=== PATIENT | male | born 1955 | race Caucasian/White ===

== ENCOUNTER → 2018-05-02 05:47 | Outpatient (CLI) | payer BC, SELFPAY ==
[2018-05-02 06:29] LABS: AST(SGOT) 16 U/L (15-37); Alanine Aminotransfer ALT/SGPT 29 U/L (16-61); Albumin, Serum 3.5 g/dL (3.2-5.0); Alkaline Phosphatase 79 U/L (45-117); Anion Gap 8 (5-15); BUN 22 mg/dL (7-18); Calcium,Total 8.8 mg/dL (8.5-10.1); Chloride 101 mmol/L (98-107); Cholesterol 127 mg/dL (200); Creatinine, Serum 1.05 mg/dL (0.70-1.30); EST Glomerular Filtration Rate 75 mL/min (>60); Est Glom Filt Rate - Afr Amer 91 mL/min (>60); Globulin 3.5 g/dL (2.2-4.2); Glucose 202 mg/dL (74-106); High Density Lipoprotein 29 mg/dL; Potassium 4.1 mmol/L (3.5-5.1); Sodium Level 141 mmol/L (136-145); Triglycerides 254 mg/dL; Very Low Density Lipoprotein 51 mg/dL (5-40)
[2018-05-02 07:01] LABS: Hemoglobin A1c 7.4 % (4.2-6.3)
== END ==
PROVIDERS: Family Provider Family Medicine; PCP Family Medicine; Referring Provider Family Medicine; Visit Provider Family Medicine
DX: E11.65 Type 2 diabetes mellitus with hyperglycemia (principal)
CPT/HCPCS: 36415; 80053; 80061; 83036

== ENCOUNTER → 2019-09-25 05:29 | Outpatient (CLI) | payer BC, SELFPAY ==
[2019-09-25 07:25] LABS: Absolute Lymphocyte Count 1.59 X10^3/uL (0.83-4.51); Basophil# 0.04 X10^3/uL; Basophil% 0.5 % (0-1); Eosinophil# 0.21 X10^3/uL; Eosinophils% 2.8 % (0-5); Hemoglobin 17.1 g/dL (13.0-16.5); Lymphocyte # 1.59 X10^3/ul (4.0); Lymphocyte % 21.5 % (19-41); Mean Corp Hgb Conc 30.8 g/dL (32-36); Mean Corpuscular Hgb 30.8 pg (27.0-32.0); Mean Platelet Vol. 11.4 fl (6.2-12.0); Monocyte# 0.54 X10^3/uL; Monocyte% 7.3 % (0-10); NRBC Flagged by Analyzer 0 % (0-5); Neutrophil # 4.96 X10^3/uL (2.7-7.7); Neutrophil % 67.4 % (47-70); Platelet Count 169 K/mm3 (150-450); RBC Distribution Width SD 52.6 fl (35.1-43.9); Red Blood Count 5.56 M/mm3 (4.6-6.2); White Blood Count 7.4 K/mm3 (4.4-11.0)
[2019-09-25 07:29] LABS: Hemoglobin A1c 6.9 % (4.2-6.3)
[2019-09-25 07:34] LABS: Microalbumin,Random Urine 7.1 mg/L (NO RANGE EST.); Microalbumin:Creatinine Ratio 6.3 mg/g CRE (<30 mg/g CRE)
[2019-09-25 07:35] LABS: ALB/GLOB Ratio 0.8 RATIO (0.9-2.4); AST(SGOT) 15 U/L (15-37); Alanine Aminotransfer ALT/SGPT 24 U/L (16-61); Albumin, Serum 3.3 g/dL (3.2-5.0); Alkaline Phosphatase 82 U/L (45-117); Anion Gap 1 (5-15); BUN 19 mg/dL (7-18); BUN/Creat Ratio 18.3 RATIO (10-20); Chloride 105 mmol/L (98-107); Cholesterol 113 mg/dL (200); Creatinine, Serum 1.04 mg/dL (0.70-1.30); EST Glomerular Filtration Rate 76 mL/min (>60); Est Glom Filt Rate - Afr Amer 92 mL/min (>60); Glucose 143 mg/dL (74-106); High Density Lipoprotein 34 mg/dL; Potassium 4.1 mmol/L (3.5-5.1); Protein, Total 7.3 g/dL (6.4-8.2); Sodium Level 140 mmol/L (136-145); Thyroid Stim Hormone (TSH) 1.93 uIU/mL (0.358-3.74); Triglycerides 136 mg/dL; Very Low Density Lipoprotein 27 mg/dL (5-40)
[2019-09-25 07:40] LABS: Hematocrit 55.6 % (40-54)
== END ==
PROVIDERS: PCP Family Medicine; Referring Provider Family Medicine; Visit Provider Family Medicine
DX: E13.65 Other specified diabetes mellitus with hyperglycemia (principal); Z12.5 Encounter for screening for malignant neoplasm of prostate
CPT/HCPCS: 36415; 80053; 80061; 82043; 82570; 83036; 84153; 84443; 85025; G0103

== ENCOUNTER → 2020-03-14 05:29 | Outpatient (CLI) | payer BC, SELFPAY ==
[2020-03-14 07:04] LABS: Absolute Neutrophil Count 3.5 X10^3/uL (2.0-7.7); Basophil# 0.04 X10^3/uL; Basophil% 0.6 % (0-1); Eosinophil# 0.18 X10^3/uL; Eosinophils% 2.9 % (0-5); Hematocrit 52.1 % (40-54); Hemoglobin 17.1 g/dL (13.0-16.5); Lymphocyte % 30.7 % (19-41); Mean Corp Hgb Conc 32.8 g/dL (32-36); Mean Corpuscular Hgb 32.9 pg (27.0-32.0); Mean Corpuscular Volume 100.2 fL (80-94); Mean Platelet Vol. 11.7 fl (6.2-12.0); Monocyte# 0.54 X10^3/uL; Monocyte% 8.7 % (0-10); NRBC Flagged by Analyzer 0 % (0-5); Neutrophil # 3.49 X10^3/uL (2.7-7.7); Neutrophil % 56.6 % (47-70); Platelet Count 143 K/mm3 (150-450); RBC Distribution Width CV 14.2 % (11.6-14.6); RBC Distribution Width SD 51.8 fl (35.1-43.9); White Blood Count 6.2 K/mm3 (4.4-11.0)
[2020-03-14 07:17] LABS: AST(SGOT) 21 U/L (15-37); Alanine Aminotransfer ALT/SGPT 30 U/L (16-61); Albumin, Serum 3.6 g/dL (3.2-5.0); Alkaline Phosphatase 71 U/L (45-117); Anion Gap 6 (5-15); BUN 18 mg/dL (7-18); BUN/Creat Ratio 17.1 RATIO (10-20); Calcium,Total 8.6 mg/dL (8.5-10.1); Chloride 102 mmol/L (98-107); Cholesterol 121 mg/dL (200); Creatinine, Serum 1.05 mg/dL (0.70-1.30); EST Glomerular Filtration Rate 75 mL/min (>60); Est Glom Filt Rate - Afr Amer 91 mL/min (>60); Globulin 3.5 g/dL (2.2-4.2); Glucose 156 mg/dL (74-106); High Density Lipoprotein 31 mg/dL; Potassium 3.7 mmol/L (3.5-5.1); Protein, Total 7.1 g/dL (6.4-8.2); Sodium Level 139 mmol/L (136-145); Triglycerides 210 mg/dL; Very Low Density Lipoprotein 42 mg/dL (5-40)
[2020-03-14 07:22] LABS: Microalbumin,Random Urine 11.3 mg/L (NO RANGE EST.); Microalbumin:Creatinine Ratio 10.7 mg/g CRE (<30 mg/g CRE)
[2020-03-14 08:51] LABS: Hemoglobin A1c 7.4 % (3.8-5.6)
== END ==
PROVIDERS: PCP Family Medicine; Referring Provider Family Medicine; Visit Provider Family Medicine
DX: E13.65 Other specified diabetes mellitus with hyperglycemia (principal); E78.5 Hyperlipidemia, unspecified
CPT/HCPCS: 36415; 80053; 80061; 82043; 82570; 83036; 85025

== ENCOUNTER → 2021-01-31 06:06 | Outpatient (CLI) | payer MEDICARE, OTHER, SELFPAY ==
[2021-01-31 07:08] LABS: AST(SGOT) 18 U/L (15-37); Alanine Aminotransfer ALT/SGPT 28 U/L (16-61); Albumin, Serum 3.6 g/dL (3.2-5.0); Alkaline Phosphatase 77 U/L (45-117); Anion Gap 7 (5-15); BUN 21 mg/dL (7-18); BUN/Creat Ratio 19.4 RATIO (10-20); Calcium,Total 8.7 mg/dL (8.5-10.1); Chloride 102 mmol/L (98-107); Cholesterol 153 mg/dL (200); Creatinine, Serum 1.08 mg/dL (0.70-1.30); EST Glomerular Filtration Rate 72 mL/min (>60); Est Glom Filt Rate - Afr Amer 88 mL/min (>60); Globulin 3.5 g/dL (2.2-4.2); Glucose 177 mg/dL (74-106); High Density Lipoprotein 33 mg/dL; PSA,Total - Annual Screen 1.17 ng/mL (0.00-4.00); Potassium 4.3 mmol/L (3.5-5.1); Protein, Total 7.1 g/dL (6.4-8.2); Sodium Level 139 mmol/L (136-145); Triglycerides 275 mg/dL; Very Low Density Lipoprotein 55 mg/dL (5-40)
[2021-01-31 07:12] LABS: Microalbumin,Random Urine 8.2 mg/L (NO RANGE EST.); Microalbumin:Creatinine Ratio 7.1 mg/g CRE (<30 mg/g CRE)
[2021-01-31 08:50] LABS: Hemoglobin A1c 7.8 % (3.8-5.6)
== END ==
PROVIDERS: PCP Family Medicine; Referring Provider Family Medicine; Visit Provider Family Medicine
DX: E13.65 Other specified diabetes mellitus with hyperglycemia (principal); Z12.5 Encounter for screening for malignant neoplasm of prostate
CPT/HCPCS: 36415; 80053; 80061; 82043; 82570; 83036; 84153; G0103

== ENCOUNTER 2021-08-27 09:07 | Emergency (ER) | payer MEDICARE, OTHER, SELFPAY ==
[2021-08-27] VITALS (9 sets, daily range): BP systolic 102–115; BP diastolic 49–83; PULSE 88–93; RESP 21–25; TEMP 36.3; O2SAT 89–97; BMI 30.1
--- NOTE | 2021-08-27 09:09 | CT_ITS ---
STUDY: CT HEAD STROKE PROTOCOL W/O CONTRAST INJECTION REASON FOR EXAM: Male, 66 years old. Neuro deficit, acute, stroke suspected RADIATION DOSAGE (If Supplied By Facility): CTDIvol = ( ) mGy, DLP = ( ) mGycm TECHNIQUE: Transaxial CT imaging of the brain was performed without administration of intravenous contrast material. Individualized dose optimization techniques were used for this CT. COMPARISON: No relevant priors. FINDINGS: Normal soft tissue structures. Normal calvarium. Normal size ventricles and extra-axial spaces for the patient''s age. Normal white matter tracts of the cerebral hemispheres. Normal basal ganglia and thalami. Normal brainstem. Normal cerebellum. There is no intracranial hemorrhage. Increased attenuation of the left middle cerebral artery which may represent a dense MCA sign from an acute left middle cerebral artery infarct. Normal visualized paranasal sinuses. ASPECT score: CT/STROKE Brain/Head without Cont IMPRESSION: Suspect acute left middle cerebral artery infarct. N.B. : The above Results were Read Back by Augie Conway MD to Jermaine Chauhan MD, and understanding confirmed on 08/27/2021 09:28:14 (ET). Electronically Signed: Augie Conway MD at 9:29 EST ,
--- NOTE | 2021-08-27 09:09 | EKG12_ITS ---
Test Reason : STROKE Blood Pressure : / mmHG Vent. Rate : 093 BPM Atrial Rate : 093 BPM P-R Int : 244 ms QRS Dur : 062 ms QT Int : 342 ms P-R-T Axes : 074 065 076 degrees QTc Int : 425 ms Sinus rhythm with 1st degree A-V block Low voltage QRS Septal infarct , age undetermined Abnormal ECG Confirmed by ASHLEIGH HARRIS, WAYNE ([id number]), brands editor TSERING CERDA ([id number]) on 08/28/2021 11:06:58 AM Referred By: JONEL Confirmed By:WAYNE SOTELO MD
--- NOTE | 2021-08-27 09:10 | CT_ITS ---
We are attempting to reach an attending provider to discuss findings. An addendum with communication details will be sent when the communication is complete. STUDY: CTA HEAD AND NECK WITH CONTRAST REASON FOR EXAM: Male, 66 years old. Neuro deficit, acute, stroke suspected RADIATION DOSAGE (If Supplied By Facility): CTDIvol = ( ) mGy, DLP = ( ) mGycm TECHNIQUE: CT angiography was performed with a multi-detector CT scanner. Data acquisition was obtained from the skull base through the vertex following intravenous administration of IV 100mL [id number]-[id number]. MIP images were reconstructed from the axial data set. Post-processing of the angiographic images was performed, with multiplanar reformation and 3D reconstruction. Individualized dose optimization techniques were used for this CT. COMPARISON: No relevant priors. FINDINGS: Occluded left internal carotid artery with reconstitution distal to the cavernous segment. There is calcified plaque formation of the right cavernous carotid artery, without a cross-sectional luminal stenosis. Normal right A1 segments of the anterior cerebral artery. Normal left A1 segments of the anterior cerebral artery. Normal intact anterior communicating artery (ACOM). Normal bilateral A2 segments of the anterior cerebral arteries. Normal right M1 and M2 segments of the middle cerebral arteries, with a normal M1 bifurcation. Abrupt occlusion of the proximal M1 segment of the left middle cerebral artery. Normal right posterior communicating artery (PCOM). Normal left posterior communicating artery (PCOM). Normal bilateral vertebral arteries. Normal basilar artery with a normal basilar bifurcation. The visualized bilateral superior cerebellar (SCA) arteries are normal. Normal bilateral P1, P2 and visualized P3 segments of the posterior cerebral arteries. There is no demonstrated aneurysm of the [place] of [place]. There is no demonstrated abnormality of the visualized brain. AORTIC ARCH: Normal visualized aortic arch. Normal origins of the brachiocephalic, left common carotid, and left subclavian arteries. RIGHT CAROTID ARTERIES: Normal right common carotid artery (CCA). There is mild atherosclerotic plaque formation with minimal narrowing of the right carotid bulb. There is mild atherosclerotic plaque formation of the origin of the right internal carotid artery with less than 50% cross sectional diameter stenosis. Normal visualized cervical portion of the right internal carotid artery. Normal origin of the right external carotid artery (ECA). LEFT CAROTID ARTERIES: The left common carotid artery is occluded proximally. There is moderate atherosclerotic plaque formation with moderate narrowing of the carotid bulb. There is complete occlusion of the origin of the left internal carotid artery without demonstrated arterial flow. There is complete occlusion of the origin of the left external carotid artery without demonstrated arterial flow. VERTEBRAL ARTERIES: Normal bilateral vertebral arteries. CT/STROKE CTA Head AND Neck W/Con IMPRESSION: 1. Occluded proximal left common carotid artery and left carotid bifurcation with reconstitution of the left internal carotid artery distal to the cavernous segment by the right. 2. Occluded proximal left middle cerebral artery. 3. Mild (10%) right carotid stenosis. 4. Patent vertebral arteries bilaterally. Electronically Signed: Augie Conway MD at 9:43 EST ,
--- NOTE | 2021-08-27 09:13 | NURSING ---
FAXED FACESHEET TO [facility]
[2021-08-27 09:32] LABS: Absolute Lymphocyte Count 1.63 X10^3/uL (0.83-4.51); Absolute Neutrophil Count 5.3 X10^3/uL (2.0-7.7); Basophil# 0.03 X10^3/uL; Basophil% 0.4 % (0-1); Eosinophil# 0.17 X10^3/uL; Eosinophils% 2.2 % (0-5); Hematocrit 45.4 % (40-54); Hemoglobin 14.6 g/dL (13.0-16.5); Lymphocyte # 1.63 X10^3/ul (0.83-4.51); Mean Corp Hgb Conc 32.2 g/dL (32-36); Mean Corpuscular Volume 99.6 fL (80-94); Mean Platelet Vol. 10.6 fl (6.2-12.0); Monocyte% 7.7 % (0-10); NRBC Flagged by Analyzer 0 % (0-5); Neutrophil # 5.29 X10^3/uL (2.7-7.7); Neutrophil % 68.1 % (47-70); Platelet Count 180 K/mm3 (150-450); RBC Distribution Width SD 51.3 fl (35.1-43.9); Red Blood Count 4.56 M/mm3 (4.6-6.2); White Blood Count 7.8 K/mm3 (4.4-11.0)
--- NOTE | 2021-08-27 09:32 | EDS_ITS ---
HPI History of Present Illness Chief Complaint: Neuro S/Sx Detail of Chief Complaint: Right-sided weakness, slurred speech, right facial droop Informant: patient and EMS Narrative Narrative: Patient presents via EMS from home. Per EMS talked to him at 7 AM and he was his normal self. Patient believes he woke up feeling normal. When she checked on him later he was found in the chair and had slurred speech and was unable to use his right arm. Patient denies headache. He denies chest pain or shortness of breath. He denies recent illness. No prior history of stroke. Denies any bleeding from his bowels or urine. Prior similar symptoms: No PFSH PFSH Allergy/AdvReac Type Severity Reaction Status Date / Time No Known Allergies Allergy Verified 08/27/21 09:22 Social History (System 06/28/21 @ 12:57 by Peewee Lacy) Smoking Status: Former smoker ROS ROS ED Constitutional Constitutional ED: Reports systems reviewed and no addt'l complaints, except as documented; Denies body ache(s), change in weight or chills Eyes Eyes: Denies acute decrease in peripheral vision, change in vision, double vision or loss of vision ENT ENT ED: Reports none; Denies ear pain, lip swelling, loss taste/smell, neck pain, otalgia or sore throat Cardiovascular Cardiovascular: Reports none; Denies abdominal pain, chest pain with activity, leg edema, lightheadedness, palpitations, rapid heart rate or syncope Respiratory/Chest Respiratory/Chest: Reports none; Denies change in mental status, dry cough, dyspnea, hemoptysis, shortness of breath at rest or shortness of breath with exertion Gastrointestinal Gastrointestinal: Reports none; Denies abdominal pain, change in stool character, diarrhea, hematemesis, hematochezia, melena, rectal bleeding or vomiting Genitourinary Genitourinary ED: Reports none; Denies abdominal discomfort, anuria, dysuria, genital pain or polyuria Musculoskeletal Musculoskeletal: Reports none; Denies arthralgias, back pain, difficulty walking, extremity pain, muscle weakness or myalgias Integumentary Reports none; Denies abscess or rash Neurologic Neurologic: Reports none, weakness and other Details: Right arm weakness, slurred speech, right-sided facial droop ; Denies abnormal gait, confusion, focal weakness, frequent falls, headache(s), loss of vision, numbness, paresthesias, radicular pain or vertigo Psychiatric Psychiatric: Reports systems reviewed and no addt'l complaints, except as documented and none; Denies behavioral changes, confusion, difficulty concentrating, hallucinations, suicidal ideation, tactile hallucinations or visual hallucinations Endocrine Endocrinology: Denies none, cold intolerance, excessive sweating, fatigue or heat intolerance Hematologic/Lymphatic Hematologic/Lymphatic: Reports none; Denies anemia, easy bleeding or easy bruising Allergic/Immunologic Allergic/Immunologic ED: Denies as per HPI, none, lip swelling, mouth swelling, throat swelling, tongue swelling or hives EXAM Physical Exam Const Vital Signs: 08/27/21 09:07 08/27/21 09:26 Temperature 97.4 F L Temperature Source Temporal Pulse Rate 91 Respiratory Rate 24 H Blood Pressure 115/83 H Blood Pressure Mean 93 Pulse Ox 94 97 Oxygen Delivery Method Nasal Cannula Nasal Cannula Oxygen Flow Rate (L/min) 4 4 Positive well nourished and well developed General Appearance ED: well developed and NAD HEENT Reports TM's clear and moist mucous membranes normocephalic and atraumatic; Negative for trauma or tenderness Tympanic Membrane ED: Yes TM's clear Eyes PERRL and EOMs intact bilaterally General Eye ED: Negative for pale conjunctiva or scleral icterus Neck no lymphadenopathy, supple and no JVD General: Negative for tenderness Chest Wall inspection of chest normal and palpation of chest normal Chest: Negative for tenderness Resp normal respiratory effort and clear to auscultation bilaterally Effort and Inspection: Negative for respiratory distress or pain with movement Auscultation: Negative for rhonchi, wheezes or diminished lung sounds Cardio regular rate, regular rhythm, S1 normal heart sound, S2 normal heart sound and no murmurs Peripheral Pulses: pulses 2+ throughout GI normal to inspection, nondistended, normoactive bowel sounds, soft to palpation, non-tender, non-distended and no masses Back/Spine no CVA tenderness and no thoracic nor lumbar tenderness Extremity normal to inspection General Extremety ED: Negative for edema General Extremity: Negative for edema Neuro oriented x3, no sensory deficits noted and gait normal Neuro Narrative: Patient with right-sided facial droop and right arm weakness. Patient has slurred speech. NIH stroke scale was a 8. Sensorium / Orientation: awake, alert, oriented to person, oriented to place and oriented to time Motor Exam: strength abnormal Psych mental status grossly normal Skin no rashes or lesions noted and no wounds STROKE Vital Signs/Narrative: Vital Signs Temp Pulse Resp BP Pulse Ox 08/27/21 09:26 97 08/27/21 09:07 97.4 F L 91 24 H 115/83 H 94 MDM MDM MDM Narrative Medical decision making narrative: Stroke team called prior to arrival in the emergency department. Family was not here to directly interview. I felt patient would meet TPA criteria. I discussed with him risks and benefits. He would like to proceed with TPA. Radiologist called and stated there was no hemorrhage however there was a hyperdense left middle cerebral artery. Patient was seen by neurologist at [facility] via teleneurology who recommended TPA and immediate transfer to their facility via helicopter. Patient had been ordered TPA by myself prior to patient being seen by the neurologist as I suspect that patient would meet criteria. Lab Data Attestation: I reviewed the patient's lab results. Radiography Diagnostic Testing: Clinical Impression(s) from Imaging Studies Brain CT 08/27/21 09:09 IMPRESSION: Suspect acute left middle cerebral artery infarct. N.B. : The above Results were Read Back by Augie Conway MD to Jermaine Chauhan MD, and understanding confirmed on 08/27/2021 09:28:14 (ET). Electronically Signed: Augie Conway MD at 9:29 EST , EKG Initial EKG: Attestation: I personally reviewed and interpreted this EKG as follows: Comments: Sinus rhythm with a ventricular rate of 93 bpm with old septal infarct Stroke Documentation Questions Stroke Team Activated: Yes Reviewed Inclusion/Exclusion criteria: Yes Was Patient considered for Endovascular Intervention?: Yes IV Alteplase (t-PA) Administered: Yes No contraindications for IV Alteplase (t-PA) administration.: Yes Alteplase (t-PA) risks, benefits, alternative discussed: Yes Critical Care Time Critical care time (excluding procedures): Including time spent:, Discussing w/ Patient &/or Family/Sap Hana Developer, Discussing w/Consultants, Arranging Admission or Transfer, Performing Direct Patient Care at Bedside and - (20 minutes) Discharge Plan Triage Chief Complaint: Neuro S/Sx ED Provider: Jermaine Will Dx/Rx/DC Orders Clinical Impression: Acute stroke due to embolism of left middle cerebral artery Primary Care Provider: Toney Nicole Referrals: Toney Nicole MD [Primary Care Provider] - Disposition Disposition: Transfer to Another Type [facility]
[2021-08-27 09:41] LABS: Partial Thromboplast Time 26.8 Seconds (24.1-36.2)
[2021-08-27 09:45] LABS: International Normalized Ratio 1.1
[2021-08-27 09:49] LABS: Anion Gap 3 (5-15); BUN 26 mg/dL (7-18); BUN/Creat Ratio 23.4 RATIO (10-20); Calcium,Total 8.4 mg/dL (8.5-10.1); Chloride 98 mmol/L (98-107); Creatinine, Serum 1.11 mg/dL (0.70-1.30); EST Glomerular Filtration Rate 70 mL/min (>60); Est Glom Filt Rate - Afr Amer 85 mL/min (>60); Estimated Creatinine Clearance 61.62 ml/min; Glucose 158 mg/dL (74-106); Potassium 4.2 mmol/L (3.5-5.1); Sodium Level 134 mmol/L (136-145); Troponin-I HS 5 pg/mL (3.0-78.0)
[2021-08-27] MEDS: 0.9% Normal Saline 1,000 ML 100 ML IV (10:03)
== END 2021-08-27 10:25 | disposition other institution (70) ==
PROVIDERS: Emergency Provider Emergency Medicine; PCP Family Medicine; Visit Provider Emergency Medicine
DX: I63.312 Cerebral infarction due to thrombosis of left middle cerebral artery (principal); G81.93 Hemiplegia, unspecified affecting right nondominant side; R47.81 Slurred speech; Z87.891 Personal history of nicotine dependence; R29.708 NIHSS score 8; R29.810 Facial weakness
CPT/HCPCS: 70450; 70496; 70498; 80048; 84484; 85025; 85610; 85730; 93005; 96365; 99285; J2997; J7030; Q9967; A4216

== ENCOUNTER 2021-09-03 18:00 | Inpatient (IN) | payer MEDICARE, OTHER, SELFPAY ==
[2021-09-03 18:07] VITALS: BP 166/93; PULSE 90; RESP 18; TEMP 36.8; O2SAT 91; BMI 29.5
[2021-09-03 18:21] LABS: Bedside Glucose 204 mg/dL (70-110)
--- NOTE | 2021-09-03 18:33 | NURSING ---
aware of patient arrival and of team day for her to attend. Patient in good spirits. Currently watching tv, call castro in place.
[2021-09-03 20:15] VITALS: O2SAT 88
[2021-09-03 20:18] VITALS: O2SAT 92
[2021-09-03 21:06] VITALS: BP 147/80; PULSE 91; RESP 16; TEMP 36.6; O2SAT 93
[2021-09-03 21:20] VITALS: PULSE 91
[2021-09-03] MEDS: Atorvastatin Calcium 20 MG Tablet PO (21:20)
[2021-09-03] MEDS: Metoprolol Tartrate 50 MG Tablet PO (21:20)
[2021-09-03] MEDS: Senna/Docusate Sodium 1 Tablet 2 TABLET PO (21:21)
[2021-09-03] MEDS: NYSTATIN 500,000 UNIT/5 ML UDC 500000 UNIT PO (21:26)
[2021-09-03] MEDS: Doxazosin 4 MG Tablet PO (21:28)
[2021-09-03 21:31] LABS: Bedside Glucose 244 mg/dL (70-110)
[2021-09-03 22:00] VITALS: PULSE 94; RESP 18; O2SAT 93; BMI 29.5
[2021-09-04] VITALS (7 sets, daily range): BP systolic 81–135; BP diastolic 46–67; PULSE 82–89; RESP 18–22; TEMP 36.5–36.8; O2SAT 91–95; BMI 29.5
[2021-09-04 05:50] LABS: Absolute Lymphocyte Count 1.36 X10^3/uL (0.83-4.51); Absolute Neutrophil Count 3.9 X10^3/uL (2.0-7.7); Basophil# 0.03 X10^3/uL; Basophil% 0.5 % (0-1); Eosinophil# 0.25 X10^3/uL; Eosinophils% 4.1 % (0-5); Hematocrit 48.8 % (40-54); Hemoglobin 15.8 g/dL (13.0-16.5); Lymphocyte # 1.36 X10^3/ul (0.83-4.51); Lymphocyte % 22.4 % (19-41); Mean Corp Hgb Conc 32.4 g/dL (32-36); Mean Corpuscular Hgb 32.4 pg (27.0-32.0); Mean Platelet Vol. 10.8 fl (6.2-12.0); Monocyte# 0.54 X10^3/uL; Monocyte% 8.9 % (0-10); NRBC Flagged by Analyzer 0 % (0-5); Neutrophil # 3.86 X10^3/uL (2.7-7.7); Neutrophil % 63.8 % (47-70); Platelet Count 170 K/mm3 (150-450); RBC Distribution Width CV 13.4 % (11.6-14.6); RBC Distribution Width SD 49.6 fl (35.1-43.9); Red Blood Count 4.88 M/mm3 (4.6-6.2); White Blood Count 6.1 K/mm3 (4.4-11.0)
[2021-09-04 06:26] LABS: ALB/GLOB Ratio 0.8 RATIO (0.9-2.4); AST(SGOT) 20 U/L (15-37); Alanine Aminotransfer ALT/SGPT 32 U/L (16-61); Albumin, Serum 2.8 g/dL (3.2-5.0); Alkaline Phosphatase 69 U/L (45-117); Anion Gap 5 (5-15); BUN 15 mg/dL (7-18); BUN/Creat Ratio 20.5 RATIO (10-20); Calcium,Total 8.9 mg/dL (8.5-10.1); Chloride 104 mmol/L (98-107); Creatinine, Serum 0.73 mg/dL (0.70-1.30); EST Glomerular Filtration Rate 113 mL/min (>60); Est Glom Filt Rate - Afr Amer 137 mL/min (>60); Globulin 3.6 g/dL (2.2-4.2); Glucose 191 mg/dL (74-106); Phosphorus 3.3 mg/dL (2.5-4.9); Potassium 3.8 mmol/L (3.5-5.1); Protein, Total 6.4 g/dL (6.4-8.2); Sodium Level 142 mmol/L (136-145)
[2021-09-04] MEDS: Enoxaparin 40 MG/0.4 ML Syringe SC ×2 (06:44→12:21)
[2021-09-04 07:36] LABS: Bedside Glucose 187 mg/dL (70-110)
[2021-09-04] MEDS: Aspirin 81 MG TAB.CHEW PO (08:23)
[2021-09-04] MEDS: Lisinopril 20 MG Tablet PO (08:24)
[2021-09-04] MEDS: hydroCHLOROthiazide 25 MG Tablet PO (08:24)
[2021-09-04] MEDS: Senna/Docusate Sodium 1 Tablet 2 TABLET PO ×2 (08:24→21:30)
[2021-09-04] MEDS: Empagliflozin 25 MG Tablet PO (08:24)
[2021-09-04] MEDS: Metoprolol Tartrate 50 MG Tablet PO (08:25)
[2021-09-04] MEDS: NYSTATIN 500,000 UNIT/5 ML UDC 500000 UNIT PO (08:30)
--- NOTE | 2021-09-04 08:39 | EX.PCM.HP.RE ---
HPI - General General Date of Admission: 09/03/21 HPI Narrative ELEAZAR LAIRD, is a 66 YO M with a PMH of HTN, DM II, hyperlipidemia and tobacco dependence in remission who presented to [facility] ED on 08/27/21 c/o slurred speech and weakness in the RUE. This progressed while he was in the ED to complete aphasia. NC CTB showed increased attenuation of the left MCA possibly representing a dense MCA sign from an acute LMCA infarct. CTA of the head and neck showed an occluded proximal left common carotid artery and left carotid bifurcation with reconstitution of the left internal carotid artery distal to the cavernous segment, occluded proximal left middle cerebral artery and mild right carotid stenosis estimated at 10%. Consult was obtained with [facility] teleneurology. The NIHSS was 14 at the time of the consult. Since presentation was within 4 hours of LKW TPA was recommended and transfer to [facility] for LVO. Additional imaging was done at [facility] and no thrombectomy was attempted due to chronic occlusion of the L Carotid. MRI was consistent with a recent infarct in the left MCA territory involving the left basal ganglia and insula. There was also a small age-indeterminate infarct in the left superior frontal gyrus. Upon arrival at [facility] the NIHSS was up to 19 and he was hypotensive with a MAP in the low 60's. Creat was elevated and he was hydrated. The HGB was also increased at 16.4. The following morning the creat was down to 0.8 and the HGB was 14.8. He is on HCTZ for Hypertension and he takes Lasix PRN for swelling in his legs. Eric was seen by PT/OT/ST while at [facility] and acute inpt rehab was recommended at OR. He was transferred to the acute inpt rehab unit at [facility] on 09/03/21 for 3 hours of therapy daily to restore function/independence as close as possible to the level prior to the CVA. Diet at the time of transer to [facility] was soft and bite sized with honey thick liquids. GUY at [facility] - normal EF, no thrombus, mild LAE, no PFO. He has diffuse atheromatous plaque in the aorta with no aneurysmal dilatation. LDL was 39 at [facility]. HDL was 27 and TRIG were normal. He is on Crestor 10 mg. Eric was apparently seen at [facility] in 2012 for L carotid stenosis (50-69%) and was placed on Plavix. He refused surgery at that time. Imaging at [facility] showed a nodular opacity in the TODD on plain CXR. A CT chest was obtained and he has a lesion in the left upper lobe with 2 contiguous components. The more posterior component had the appearance of a cavity. A repeat CT of the chest was recommended in 8-12 weeks vs a PET. Plavix was discontinued at [facility] and he is currently only on 81 mg of ASA daily. All lab drawn this AM was personally reviewed. Serum bicarb is increased at 33 and the BUN is 15 with a creatinine of 0.73. Fasting blood glucose is 191. Calcium and phosphorus are within normal limits and the magnesium is still pending. Will add a HGBA1C. His HGBA1C in January was 7.8 and there is only 1 HGBA1C in the past 4 years that has been under 7.0. The blood sugar record was reviewed and he was 244 at at bedtime and 187 this AM. [facility] Medical History (Updated 09/04/21 @ 17:[address] Zoë Lenz DO) BPH (benign prostatic hyperplasia) HLD (hyperlipidemia) HTN (hypertension) Left middle cerebral artery stroke Stroke/cerebrovascular accident Tobacco dependence in remission Uncontrolled type 2 diabetes mellitus Allergy/AdvReac Type Severity Reaction Status Date / Time No Known Allergies Allergy Verified 08/27/21 09:22 Family History (Updated 09/04/21 @ 17:[address] Zoë Lenz DO) Other Diabetes Hypertension Surgical History History of appendectomy Social History (Updated 09/04/21 @ 17:[address] Zoë Lenz DO) household members: spouse number of children: 1 current occupational status: retired Smoking Status: Former smoker how long ago did patient quit smoking: he quit smoking at least 20 years ago alcohol intake: current details: occasional substance use type: does not use ROS ROS Narrative Limited due to encephalopathy due to recent L left MCA ischemic CVA. Review of Systems ROS Unobtainable: due to encephalopathy Constitutional Constitutional: Reports weakness Eyes Eyes: Denies blurry vision, change in vision, discharge from eye(s) or double vision ENT HEENT: Reports dysphagia and sore throat; Denies headache(s) Cardiovascular Cardiovascular: Denies chest pain Respiratory/Chest Respiratory/Chest: Reports other Details: He came to us on oxygen but, he tells me that he does not wear oxygen at home. Tells me he quit smoking 20-30 years ago. ; Denies cough or shortness of breath at rest Gastrointestinal Gastrointestinal: Denies abdominal pain, diarrhea, nausea or vomiting Genitourinary Genitourinary: Reports urinary incontinence; Denies dysuria Integumentary Integumentary: Denies jaundice, rash or wounds Neurologic Neurologic: Reports abnormal speech; Denies headache(s), numbness or seizures Psychiatric Psychiatric: Denies homicidal ideation or suicidal ideation Endocrine Endocrinology: Denies change in body appearance Vital Signs Vital Signs Vital Signs: 09/03/21 18:07 09/03/21 20:15 09/03/21 20:18 Temperature 98.3 F Temperature Source Oral Pulse Rate 90 Respiratory Rate 18 Respiratory Effort Respiratory Depth Respiratory Pattern Blood Pressure 166/93 H Blood Pressure Mean 117 Blood Pressure Source Monitor Blood Pressure Position Sitting Blood Pressure Location Left Arm Pulse Ox 91 88 92 Oxygen Delivery Method Nasal Cannula Room Air Nasal Cannula Oxygen Flow Rate (L/min) 2.5 Fraction of Inspired Oxygen (FIO2) 2 09/03/21 21:06 09/03/21 21:20 09/03/21 22:00 Temperature 97.9 F Temperature Source Oral Pulse Rate 91 91 94 Respiratory Rate 16 18 Respiratory Effort Non-Labored Respiratory Depth Shallow Respiratory Pattern Irregular Blood Pressure 147/80 H Blood Pressure Mean 102 Blood Pressure Source Monitor Blood Pressure Position Semi-Fowlers Blood Pressure Location Right Arm Pulse Ox 93 93 Oxygen Delivery Method Nasal Cannula Nasal Cannula Oxygen Flow Rate (L/min) 2 2 Fraction of Inspired Oxygen (FIO2) Weight Weight: 199 lb 8.293 oz Body Mass Index (BMI) 29.5 Indicators for Scoring Admitted with or Primary Diagnosis of CVA/Stroke: Yes Hx of CVA/Stroke: Yes Modified [place] Score MRS Score at time of Evaluation: 4-Moderate/severe disability NIHSS NIHSS 1a. Level of Consciousness: Alert; keenly responsive 1b. LOC Questions: Answers one question correctly. 1c. LOC Commands: Performs both tasks correctly. 2. Best Gaze: Normal 3. Visual: No visual loss 4. Facial Palsy: Minor paralysis (flattened nasolabial fold, asymmetry on smiling) 5a. Left Arm: No drift; arm holds 90 (or 45) degrees for full 10 seconds 5b. Right Arm: No drift; arm holds 90 (or 45) degrees for full 10 seconds (the R arm was held up for 10 sec but it was not as steady as the LUE) 6a. Left Leg: No drift; leg holds 30-degree position for full 5 seconds 6b. Right Leg: No drift; leg holds 30-degree position for full 5 seconds 7. Limb Ataxia: Present in 1 limb (Left arm - mild) 8. Sensory: Normal; no sensory loss 9. Best Language: No aphasia; normal 10. Dysarthria: [id number] dysarthria; 11. Extinction and Inattention: No abnormality Total: 4 Stroke Questions Stroke Team Activated: No Physical Exam Const alert, no apparent distress and well nourished Constitutional Narrative: Oriented to person and place. Cannot tell me the month or the year. General Appearance: cooperative and well developed HEENT normocephalic and head/scalp atraumatic HEENT Narrative: He has a R carotid bruit. I did not appreciate a bruit on the left. Mouth: dry mucous membranes Eyes PERRL and EOMs intact bilaterally Neck supple General: trachea midline Lymph Lymphatic: no lymphadenopathy noted Cardio regular rate, regular rhythm, S1 normal heart sound, S2 normal heart sound, no murmurs, no rub and no gallops Cardio Narrative: Heart sounds are very distant and he has an AP diameter of his chest. GI normal to inspection, nondistended, normoactive bowel sounds, soft to palpation and non-tender Extremity no calf tenderness General Extremity: Negative for clubbing, cyanosis or edema Skin no wounds General Skin Exam: no breakdown Rashes: no rashes Neuro Neuro Narrative: Please see NIH scoring. He is left hand dominant. Strength in the right upper extremity is 4/5 and in the left upper extremity is 5/5. Lower extremities are 5/5 bilaterally. Intact sensation throughout. Can do [id number] test bilaterally and also finger nose. He has dysmetria with the LUE which is mild. Mild left facial droop. Speech is slurred and sometimes difficult to understand. Voice is soft and does not project. He has dysphagia. He is slow to respond to questions. Results Lab / Micro Data Result Diagrams: 09/04/21 05:35 09/04/21 05:35 Labs: Laboratory Results - last 24 hr 09/03/21 18:17: POC Glucose 204 H 09/03/21 21:18: POC Glucose 244 H 09/04/21 05:35: WBC 6.1, RBC 4.88, Hgb 15.8, Hct 48.8, MCV 100.0 H, MCH 32.4 H, MCHC 32.4, RDW Std Deviation 49.6 H, RDW Coeff of Francisco 13.4, Plt Count 170, MPV 10.8, Immature Gran % (Auto) 0.300, Neut % (Auto) 63.8, Lymph % (Auto) 22.4, [place] % (Auto) 8.9, Eos % (Auto) 4.1, Baso % (Auto) 0.5, Absolute Neuts (auto) 3.9, Absolute Lymphs (auto) 1.36, Nucleated RBC % 0 09/04/21 05:35: Sodium 142, Potassium 3.8, Chloride 104, Carbon Dioxide 33.0 H, Anion Gap 5, BUN 15, Creatinine 0.73, Estim Creat Clear Calc 70.70, Est GFR (MDRD) Af Amer 137, Est GFR (MDRD) Non-Af 113, BUN/Creatinine Ratio 20.5 H, Glucose 191 H, Calcium 8.9, Phosphorus 3.3, Magnesium Cancelled, Total Bilirubin 0.60, AST 20, ALT 32, Alkaline Phosphatase 69, Total Protein 6.4, Albumin 2.8 L, Globulin 3.6, Albumin/Globulin Ratio 0.8 L 09/04/21 06:41: POC Glucose 187 H Assessment & Plan Assessment/Plan (1) Physical debility: (2) Left middle cerebral artery stroke: (3) Occlusion of left middle cerebral artery: (4) Occlusion of left internal carotid artery: (5) Hemiparesis of right dominant side due to cerebral infarction: (6) Dysarthria: (7) Dysphagia as late effect of stroke: (8) Uncontrolled type 2 diabetes mellitus: (9) Overweight (BMI 25.0-29.9): (10) Tobacco dependence in remission: (11) HTN (hypertension): (12) HLD (hyperlipidemia): (13) BPH (benign prostatic hyperplasia): (14) Lung nodule seen on imaging study: PLAN: PLAN PT for gait stability OT for ADL's ST for evaluation Analgesics as needed Bowel protocol Fall precautions Assess for Anxiety/Depression GI prophylaxis not necessary - no hx of PUD or GERD and he has no N/V/epigastric pain DVT prophylaxis with Lovenox 40 mg subcu daily Follow up with Dr. Toney Nicole and vascular medicine following DC from Rehab AM lab including CMP, CBC, Mag and Phos - reviewed. HGBA1C is 7.1. Needs a repeat CT scan vs PET scan in 8-12 weeks to see if the TODD nodule is stable Overnight trending pulse ox STOP BANG score is 6 putting him at high risk for ANN MARIE AND he is now on Oxygen which I presume was applied at [facility] for desaturation while sleeping. He was 91% this AM while on oxygen. He was hypotensive this AM - will hold the Lisinopril and decrease the Metoprolol to 25 mg BID. Hold Metoprolol if the BP is less than 110/65. IV NS at 250 bolus and then 75 cc/hr Hydralazine 10 mg PO Q 4 H PRN systolic > 160 or diastolic > 90 serum bicarb is high at 33......not sure is this is due to dehydration ro to compensation for respiratory acidosis - will check an ABG....his speech is slurred and he is drowsy and slow to respond.
[2021-09-04] MEDS: Insulin Lispro 100 UNIT/ML INSULN.PEN 9 UNIT SC (09:27)
--- NOTE | 2021-09-04 10:15 | PCM.RU.PYE ---
Admission Information Primary Diagnosis:: Post Stroke debility with dysphagia and R side hemiparesis Status Changes from Prescreening?: No changes Identified Actual Problem List:: Aspiration, Skin Intergrity, Pain, ALteration in Cmfrt, Cognitve Impr/Memory Loss, Alteration in Nutrition, Mobility Impaired, Self Care Deficit, Diabetes, Hyperglycemia, BP, Hypertension, Alteration/ Air Exchange, Fluid Change-Dehydration and Alteration-Leisure Activ. Potential Problem List:: DVT, Bleeding, Infection, UTI, Aspiration, Falls, Skin Integrity and Depression Risk of Complications DVT: LMWH and YNES Hose Bleeding: Monitor Lab Values, Nursing to Teach Precautions for anti-coagulation therapy., Wound, if applicable, to be assessed every shift. and Stroke patients assessed for lethargy or change in status. Infection: Clinical Staff to Monitor for S/S of infection: and S/S of infection include fever, redness, warmth, etc. Urinary Tract Infection: Monitor for frequency, burning, discomfort, or incontinence. and Nursing will obtain urine sample for urinalysis and C&S when ordered. Aspiration: Clinical staff will monitor for coughing, drooling, congestion., Speech will evaluate swallowing and dsyphasia. and Nursing will monitor patient swallowing during meals. Falls: Patient will be evaluated for Fall Precautions and Patient will be placed on Fall Precautions as indicated per protocol. Skin Breakdown: Nursing will assess skin daily using assessment tool. and Nursing will place on Skin Breakdown Precautions as indicated. Pain: Clinical staff will assess patient's pain level per protocol., Medications will be given, if needed, and the pain level reassessed. and Other methods: Massage, distraction, decrease stimulus, etc. used PRN. Plan of Care Patient requires physician specializing in physical medicine and rehab oversight to provide close medical supervision of rehab issues including: Pain Management, Sleep Problems, Bowel and Bladder, Medical and co-morbidity Management, DVT prophylaxis, Rehabilitation Leadership and Coordination of treatment team Patient needs Physical Therapy: For a minimum of 1 hour and At least 5 out of 7 days Patient needs Physical Therapy to improve:: Mobility, Strengthening, Transfers, Stretching, ROM, Endurance, Stairs, Gait and Balance Patient needs Occupational Therapy: For a minimum of 1 hour and At least 5 out of 7 days Patient needs Occupational Therapy to improve ADL's incl.: Eating, Grooming, Bathing, Dressing, Toileting, Toilet transfers, Community Reintegration, Higher functioning activities, Household tasks, Adaptive Equipment, Splinting and Other activities as determined Patient requires speech therapy: For a minimum of 1 hour and At least 5 out of 7 days Patient requires speech therapy for: Swallowing, Cognition, Language Skills and Compensatory Strategies Patient requires 24/7 Rehabilitation Nursing for: Pain Issues, Identifying and preventing risk factors, Monitoring and reporting current medical conditions, Assisting with ambulation, transfer, and all ADL's, Teaching patients about disease process and medications, Family teaching, Providing safe environment, Bowel and Bladder Issues, Skin integrity and Medication Management Patient needs Machine Molder Squeeze/ Case Management for: Discharge Planning, Arranging Home Equipment or Services and Family Interventions Patient needs Dietary and Nutrition Services for: Adequate Nutrition, Nutritional Supplements and Nutritional Education Goals Patient will remain: free from falls and or injury at time of discharge. Patient will perform bed mobility at: MOD I level of assist. Patient will complete transfers from bed to chair at: MOD I level of assist. Patient will ambulate: with MOD I assist, with LRD and - Patient will complete upper body dressing at: MOD I level of assist. Patient will complete lower body dressing at: MOD I level of assist. Patient will complete toileting at: MOD I level of assist. Patient will perform bathing at: MOD I level of assist. Patient will complete grooming at: MOD I level of assist. Patient will complete home management skills at: MOD I level of assist. Patient will achieve: 12 stairs, with standby assist and - (1 curb step) Patient will have pain level of: of 3 or less Patient's skin will: remain intact Patient will receive: adequate nutrition. Discharge Planning Pt Prognosis for Sig. Practical Improv. w/in Reasonable Time: Good Estimated Length of stay (days): 21 Anticipated D/C Destination: Home w/ family or friends Was Preadmission Assessment Accurate?: Yes
[2021-09-04 10:55] LABS: Hemoglobin A1c 7.1 % (3.8-5.6)
[2021-09-04 11:10] LABS: Bedside Glucose 172 mg/dL (70-110)
[2021-09-04] MEDS: Insulin Lispro 100 UNIT/ML INSULN.PEN 12 UNIT SC ×2 (11:28→16:54)
[2021-09-04] MEDS: Clotrimazole 10 MG Troche MUCOUS MEM ×3 (12:21→17:44)
--- NOTE | 2021-09-04 14:45 | NURSING ---
Pt Fell @14:05 hit head on wall laceration on R eyebrow, scrap on R knee and L Knuckle. family to be called , [place] and traffic warehouse supervisor notified. Dr. Lenz present.
--- NOTE | 2021-09-04 14:50 | CT_ITS ---
STUDY: CT BRAIN WITHOUT CONTRAST REASON FOR EXAM: Male, 66 years old. Head trauma due to a fall -- recent L MCA ischemic stroke RADIATION DOSAGE (If Supplied By Facility): CTDIvol = ( 44.99 ) mGy, DLP = ( 796.11 ) mGycm TECHNIQUE: Transaxial CT imaging of the brain was performed without administration of intravenous contrast material. Individualized dose optimization techniques were used for this CT. COMPARISON: Comparison is made with prior study dated 08/27/2021. FINDINGS: Normal soft tissue structures. Normal calvarium. There is mild cerebral atrophy with widening of the extra-axial spaces and ventricular dilatation. There is evidence of a focal decreased density in the inferior anterior aspect of the left frontal lobe as well as in the insular cortex of the left temporal lobe. Findings suggestive of a small 7.3 mm focus of hemorrhage within the insular infarct. The focal area of encephalomalacia extends into the region of the body of the left caudate nucleus. Persistent hyperdensity in the left middle cerebral artery. Normal basal ganglia and thalami. Normal brainstem. Normal cerebellum. There is no intracranial hemorrhage. There are no findings of an acute ischemic infarction. Normal visualized paranasal sinuses. CT/Brain/Head without Contrast IMPRESSION: The findings suggest subacute infarction involving the inferior aspect of the left frontal lobe as well as the insular cortex of the left temporal lobe extending into the region of the body of the left caudate nucleus. 7.3 mm focus of the petechial hemorrhage in the central aspect of the infarct involving the insular cortex. Electronically Signed: Meño Rausch MD at 15:19 EST ,
[2021-09-04 15:21] LABS: Bedside Glucose 161 mg/dL (70-110)
[2021-09-04] MEDS: Lidocaine 1% (20 ml mdv) 20 ML Vial INFILT (16:08)
--- NOTE | 2021-09-04 17:00 | NURSING ---
Dr. Lenz places sutures to lacerated area of head, this RN present and assists with procedure. pt tolerated well. denies pain or discomfort. this rn places PA on patient and places a pressure alarm under patient. call light within reach and functioning.
[2021-09-04 17:06] LABS: Bedside Glucose 143 mg/dL (70-110)
--- NOTE | 2021-09-04 18:04 | PCM.PN.BLA ---
Progress Note Eric removed his chair alarm and then attempted to get up by himself. He fell and had head trauma. He has bruising of the R upper lid and the eyebrow area laterally. He has 3 lacerations of the Left eyebrow and lateral upper lid. There is no conjunctival injection and no subconjunctival hemorrhage. He is not on an anticoagulant. He can open and close his eyes tightly BL. No pain with percussion over the R maxillary sinus or the R frontal sinus. Denies cephalgia. BS is in the 160's. WIN and accommodation. EOMI's. Stat CT head was obtained and showed normal soft tissue structures and a normal calvarium. Findings suggested a subacute infarction involving the inferior aspect of the left frontal lobe as well as the insular cortex of the left temporal lobe extending into the region of the left caudate nucleus. There is a small 7.3 mm focus of petechial hemorrhage in the central aspect of the infarct involving the insular cortex. This small petechial bleed was post TPA and is not new. Eric and his were agreeable to suturing the lacerations. Eric also an abrasion of the R knee and a small laceration overlying the 5th MCP on the Left hand which was cleansed and dressed with Bactroban and a bandaid. The lacerations were flushed with NS. Using sterile technique the lacerations were infiltrated with 1% Lidocaine and 8 sutures were placed using 6.0 Ethilon suture. The margins were everted and the patient tolerated the procedure well. Will re-examine in the AM and daily for any signs of infection. Procedures Hospitalists Procedures: Other Procedure - See Report (sutured laceration - 7 sutures applied)
[2021-09-04] MEDS: Mupirocin Ointment 22gm Tube 1 APPLIC TOPICAL (20:50)
[2021-09-04] MEDS: Doxazosin 4 MG Tablet PO (20:51)
[2021-09-04] MEDS: Atorvastatin Calcium 20 MG Tablet PO (20:51)
[2021-09-04] MEDS: 0.9% Normal Saline 1,000 ML 75 ML IV (20:51)
[2021-09-04 20:56] LABS: Allen Test Positive; Base Excess 7 mmol/L (-2 to +2); Bicarbonate 32.3 mmol/L (22-26); Blood Gas Specimen Type ART; O2 Delivery Device Cannula; PO2 77 mmHG (75-100); SITE L Radial; SO2 95 % (95-99); Total Carbon Dioxide 34 mmol/L; pCO2 55.3 mmHg (35-45); pH 7.37 (7.35-7.45)
[2021-09-04 22:00] LABS: Bedside Glucose 116 mg/dL (70-110)
[2021-09-05 01:26] VITALS: BMI 29.5
[2021-09-05] MEDS: Clotrimazole 10 MG Troche MUCOUS MEM ×2 (05:31→08:38)
[2021-09-05] MEDS: Enoxaparin 40 MG/0.4 ML Syringe SC ×2 (05:31→10:00)
--- NOTE | 2021-09-05 07:00 | PCM.PN.BLA ---
Progress Note Afebrile VSS - hypotension resolved with IV fluid bolus and IV NS overnight. HR is consistently in the 80's. Orthostatics were negative today. He had an overnight trending pulse ox on RA and was in the 80's most of the night per nursing....awaiting the report from RT. Oral intake is poor - he got a 500 cc bolus of NS yesterday and has been on an IV at 75cc/hr overnight. The BP in the AM is the lowest......may need to decrease the doxazosin dose at bedtime. Discussed with nursing - No problems overnight. Reviewed the PT/OT/ST notes Medication list reviewed. He is not on any sedating medications. the ABG on 2 LPM showed a PH of 7.37, O2 sat of 95%, PO2 of 77 and a PCO2 of 55. Consistent with a mixed acid base disorder. I suspect he has a combination of dehydration with contraction alkalosis and hypoventilation with resp acidosis. He is much more alert this AM and more focused. Able to answer questions and his speech is crisp and not slurred. Still impulsive with poor safety awareness. Denies GUILLEN. No visual disturbances. No CP, SOB, palpitations. Tells me that he slept well and feels rested. No calf pain. No hx of ANN MARIE. Infrequently needs to take a nap during the day in the past. Does not generally feel groggy during the day. The trending pulse ox was reviewed and 77.94% of the time the O2 sat was 80-89% 4.39% of the time the sat was 71-79%. Physical Exam Const no apparent distress Constitutional Narrative: more alert this AM General Appearance: cooperative HEENT HEENT Narrative: Sutures in the area between the R upper lid and the eyebrow are intact. Swelling is down today. There is bruising. No DC from the wound and no erythema. He denies pain or change in vision. No subconjunctival hemorrhage and no conjunctival injuection. Eyes conjunctivae normal and no scleral icterus Resp clear to auscultation bilaterally GI normal to inspection, nondistended, normoactive bowel sounds, soft to palpation and non-tender Neuro Neuro Narrative: He follows commands. when he is not being stimulated he sits with a blank stare on his face and seems to be in a fog but he will respond when he is stimulated. Assessment & Plan Assessment/Plan (1) Left middle cerebral artery stroke: PLAN: Continue therapy. He is much more alert this AM and I suspect he will be better able to do therapy today. (2) Occlusion of left middle cerebral artery: PLAN: He has chronic total occlusion of the L ICA also. Needs to follow up with vascular medicine post DC from Rehab. (3) Hypoxemia associated with sleep: PLAN: STOP Bang score is 6 and he snores but, his can not tell me if he stops breathing at night. Has ever had a sleep study or been on oxygen. (4) Acute respiratory acidosis: PLAN: I suspect this may be due to hypoventilation which is more likely than not due to central sleep apnea. Will consult Dr. Rodriguez. He requested a ABG on RA to calculate the Aa gradient. (5) Hypotension: PLAN: It is the lowest in the AM......today it was 104/49. The HR was 99. I decreased the beta dustin dose yesterday and also Discontinued the Lisinopril and the HCTZ. Will need to decrease the dose of the doxazosin at HS. Will order PVR's to be checked after he is incontinent. Will also get a UA today. Visit Charges Inpatient E&M: 29843 Subs Hosp L2
[2021-09-05 08:17] LABS: Anion Gap 7 (5-15); BUN 19 mg/dL (7-18); BUN/Creat Ratio 22.2 RATIO (10-20); Calcium,Total 9.1 mg/dL (8.5-10.1); Chloride 105 mmol/L (98-107); Creatinine, Serum 0.86 mg/dL (0.70-1.30); EST Glomerular Filtration Rate 94 mL/min (>60); Est Glom Filt Rate - Afr Amer 114 mL/min (>60); Estimated Creatinine Clearance 82.21 ml/min; Glucose 112 mg/dL (74-106); Potassium 3.6 mmol/L (3.5-5.1); Sodium Level 142 mmol/L (136-145)
[2021-09-05] MEDS: Insulin Lispro 100 UNIT/ML INSULN.PEN 12 UNIT SC ×3 (08:35→16:48)
[2021-09-05] MEDS: Empagliflozin 25 MG Tablet PO (08:36)
[2021-09-05] MEDS: Aspirin 81 MG TAB.CHEW PO (08:36)
[2021-09-05] MEDS: Mupirocin Ointment 22gm Tube 1 APPLIC TOPICAL ×2 (08:38→22:13)
[2021-09-05] MEDS: Senna/Docusate Sodium 1 Tablet 2 TABLET PO ×2 (08:38→22:11)
[2021-09-05 08:49] VITALS: BP 104/49; PULSE 99
[2021-09-05] MEDS: 0.9% Normal Saline 1,000 ML 75 ML IV ×2 (09:22→23:19)
[2021-09-05 09:47] VITALS: O2SAT 94
[2021-09-05 09:51] LABS: Allen Test Positive; Base Excess 5 mmol/L (-2 to +2); Bicarbonate 29.6 mmol/L (22-26); Blood Gas Specimen Type ART; O2 Delivery Device Room Air; PO2 53 mmHG (75-100); SO2 86 % (95-99); Total Carbon Dioxide 31 mmol/L; pCO2 47.9 mmHg (35-45)
[2021-09-05 10:00] VITALS: BP 104/49; PULSE 99; RESP 18; TEMP 36.4; O2SAT 92
[2021-09-05 10:38] VITALS: O2SAT 97
--- NOTE | 2021-09-05 10:50 | RAD_ITS ---
STUDY: X-RAY CHEST REASON FOR EXAM: Male, 66 years old. resp failure with hypoxia and hypercarbia -- he has dysphagia due to recent CVA TECHNIQUE: PA and lateral views of the chest. COMPARISON: Comparison is made with prior study dated 11/18/2011. FINDINGS: Hyperinflation. 2.3 cm linear density is seen in the right upper lobe. Faint 2.1 cm density seen in the peripheral lateral aspect of the left upper lobe. Correlation with CT scan is recommended. There is no demonstrated pleural abnormality. Normal size heart. Normal mediastinum and jay. Normal visualized pulmonary arteries. There is atherosclerotic calcification of the aortic arch with tortuosity. There are diffuse degenerative changes of the visualized thoracic spine. Normal visualized ribs, clavicles, and shoulders. There is no demonstrated abnormality of the visualized soft tissue structures of the upper abdomen. RAD/Chest PA and Lateral IMPRESSION: Focal linear density in the right upper lobe as well as in the lateral aspect of the left upper lobe. This is new as compared to prior study. Correlation with the CT scan of the thorax is recommended. Electronically Signed: Meño Rausch MD at 15:06 EST ,
[2021-09-05 11:01] LABS: SITE R Radial
[2021-09-05 11:51] LABS: Bedside Glucose 108 mg/dL (70-110)
[2021-09-05 11:56] LABS: Bedside Glucose 153 mg/dL (70-110)
[2021-09-05] MEDS: Glucerna Shake 120 ML LIQUID PO (12:07)
[2021-09-05 13:58] LABS: MG Sendout 2.2 mg/dL (1.6-2.3)
--- NOTE | 2021-09-05 14:43 | CASEMGMT ---
Social Work Attempted to meet with patient to complete assessment but pt confused. Completed assessment with . Explained Medicare benefit. The goal is for pt to return home with , but unsure about safety being home alone. SW to continue to follow for support and discharge planning. Susy Ha, VP [employer] DONOR SERVICES COORDINATOR
--- NOTE | 2021-09-05 14:58 | NURSING ---
Dr. Rodriguez up to see pt at this time regarding consult from dr sanz
--- NOTE | 2021-09-05 15:08 | CON.PCM.CC_ITS ---
Assessment & Plan Assessment/Plan (1) Sleep-disordered breathing: (2) Hypoxemia: (3) Tobacco dependence in remission: PLAN: RECOMMENDATIONS: 1. Initiate AVAPS as ordered 2. Consider empiric DuoNeb therapy 3. Possible sleep study following discharge 4. Outpatient follow-up with pulmonary IMPRESSIONS: 1. Sleep disordered breathing following stroke High clinical suspicion for ANN MARIE given clinical history. Patient does have CO2 retention and will be at risk for central sleep apnea. Ideally, patient will need a sleep study in the future, but in the interim to help with ability to participate with therapy, patient could be attempted on AVAPS. This would allow for control of both central sleep apnea and maintain ventilation to help with any metabolic encephalopathy associated with CO2 retention. If patient has significant clinical improvement following initiation of AVAPS, could consider discharge to a sleep study. If patient is unable to tolerate, would still recommend a sleep study in the future, but this may be able to be arranged as an outpatient after follow-up with pulmonary. 2. Compensated chronic hypercarbic respiratory failure Room air ABG shows an increased AA gradient consistent with VQ mismatching. Patient does have an increased AP diameter with a long smoking history. Alpha-1 antitrypsin can be checked as an outpatient, but high clinical suspicion patient has an element of COPD. Patient would need a pulmonary function test for quantification clarification of lung function. Patient could empirically be started on DuoNeb every 6 as needed while awake to help with ability to tolerate therapy. 3. Recent CVA with left middle cerebral artery occlusion/hyperlipidemia/hypertension/advanced age Complicates care, management, recovery room prognosis. Defer to rehab team. Okay to continue with baseline medications with modified p.o. intake per speech therapy. HPI Consult Data Date of Consult: 09/05/21 HPI Narrative HPI Narrative: ELEAZAR LAIRD is a 66 M, with past medical history listed below, who presents to [facility] rehab on 09/03/2021 secondary to a recent stroke with associated dysphagia and right-sided hemiparesis. I was called by Dr. Nicholson secondary to concerns for inability to stay awake to proceed with therapy. Patient had an ABG pulled yesterday on 2 L showing CO2 retention. Patient also had a fall leading to a laceration above his right eyebrow and lip. Patient was not on anticoagulants, but did require sutures. Patient also developed an abrasion of the right knee. On my evaluation with the patient, patient was awake and interactive. Patient does report a [id number] smoking history, but is never used an inhaler, seen a deputy district customs director or had a pulmonary function test. Patient states he has not required supplemental oxygen previously. Patient does report shortness of breath on exertion, but did not feel that this has significantly changed in the last 1 to 2 years. Patient was very vague about his sleeping history. Patient does report that he snores at times. Patient states that he has been tired during the day following his stroke, but did not typically deal with fatigue on a daily basis. Patient does report that he has gained weight as he has gotten older. Patient denies any morning headaches, but readily falls asleep throughout the day since being in rehab. Patient attributes this to boredom. Review of systems otherwise negative from a constitutional, HEENT, respiratory, cardiovascular, GI, genitourinary, musculoskeletal, skin, neurologic, psychiatric and hematologic system unless stated above. [facility] Medical History BPH (benign prostatic hyperplasia) HLD (hyperlipidemia) HTN (hypertension) Left middle cerebral artery stroke Stroke/cerebrovascular accident Tobacco dependence in remission Uncontrolled type 2 diabetes mellitus Allergy/AdvReac Type Severity Reaction Status Date / Time No Known Allergies Allergy Verified 08/27/21 09:22 Family History Other Diabetes Hypertension Surgical History History of appendectomy Social History household members: spouse number of children: 1 current occupational status: retired Smoking Status: Former smoker how long ago did patient quit smoking: he quit smoking at least 20 years ago alcohol intake: current details: occasional substance use type: does not use ROS ROS Narrative See HPI Physical Exam Const alert, no apparent distress and well nourished Constitutional Narrative: Oriented to person and place. Flat affect General Appearance: cooperative and well developed HEENT normocephalic and head/scalp atraumatic HEENT Narrative: Mallampati 3 Mouth: dry mucous membranes Eyes PERRL and EOMs intact bilaterally Neck supple General: trachea midline Carotids: bruit Positive for right Lymph Lymphatic: no lymphadenopathy noted Chest Chest: abnormal inspection of the chest increased A-P diameter Resp normal respiratory effort Auscultation: diminished lung sounds; Negative for rales, rhonchi or wheezes Cardio regular rate, regular rhythm, S1 normal heart sound, S2 normal heart sound, no murmurs, no rub and no gallops Cardio Narrative: Distant heart sounds GI normal to inspection, nondistended, normoactive bowel sounds, soft to palpation and non-tender Extremity no calf tenderness General Extremity: Negative for clubbing, cyanosis or edema Skin no wounds General Skin Exam: no breakdown Rashes: no rashes Neuro Neuro Narrative: Right upper extremity 4 out of 5 strength. Lower extremities a re 5 out of 5 strength. Sensation appears to be intact. Patient does have a mild left facial droop, but no dysarthria appreciated. Medical Records Data Medical Nutrition Assessment Dietitian: Malnutrition Criteria Met Start: 09/04/21 17:12 Freq: Status: Active Protocol: Document 09/04/21 17:12 RMA (Rec: 09/04/21 17:12 RMA [id number]) Nutrition Malnutrition Evidence of Malnutrition Exists Yes Malnutrition (severe): Acute Illness/Injury Evidenced By Suboptimal Energy Intake ( Severe),Weight Loss (Severe) Clinical Problem Acute Disease or Injury Related Malnutrition Etiology Severe protein-calorie malnutrition in the context of acute illness related to swallowing difficulty/stroke Signs/Symptoms as evidenced by mechanically altered diet/thickened liquids , 5% wt loss x 1 week and PO at meals~50%/meeting less than 50% estimated nutrition needs Status Active Problem Recommendation Dietitian Recommendations/Changes Will adjust diet to 2000 calorie/consistent carbohydrate/cardiac with consistency as per PRODUCTIVITY ENGINEER--- currently soft/bite-sized food and honey-thick liquids. Will add 120ml glucerna shake TID w/ medpass. Will add ensure pudding BID w/ lunch and dinner for tolerance. Will trend weight closely as PO established with meals. Lab / Micro Data Result Diagrams: 09/04/21 05:35 09/05/21 07:35 Labs: Laboratory Results - last 24 hr 09/04/21 05:35: Magnesium 2.2 09/04/21 15:13: POC Glucose 161 H 09/04/21 16:53: POC Glucose 143 H 09/04/21 20:58: POC Glucose 116 H 09/05/21 06:40: POC Glucose 108 09/05/21 07:35: Sodium 142, Potassium 3.6, Chloride 105, Carbon Dioxide 30.0, Anion Gap 7, BUN 19 H, Creatinine 0.86, Estim Creat Clear Calc 82.21, Est GFR (MDRD) Af Amer 114, Est GFR (MDRD) Non-Af 94, BUN/Creatinine Ratio 22.2 H, Glucose 112 H, Calcium 9.1 09/05/21 11:52: POC Glucose 153 H ABG Data ABG results: ABG 09/04/21 09/05/21 20:48 09:47 Specimen Type ART ART Sample Site L Radial R Radial pH 7.37 7.40 Bicarbonate Actual 32.3 H 29.6 H Total CO2 34 31 Base Excess 7 H 5 H O2 Saturation 95 86 L ABG pCO2 55.3 H 47.9 H ABG pO2 77 53 L Hector Test Positive Positive O2 Delivery Device Cannula Room Air Liter Flow 2.[address] 09/04/21 14:50 IMPRESSION: The findings suggest subacute infarction involving the inferior aspect of the left frontal lobe as well as the insular cortex of the left temporal lobe extending into the region of the body of the left caudate nucleus. 7.3 mm focus of the petechial hemorrhage in the central aspect of the infarct involving the insular cortex. Electronically Signed: Meño Rausch MD at 15:19 EST , Chest X-Ray 09/05/21 10:50 IMPRESSION: Focal linear density in the right upper lobe as well as in the lateral aspect of the left upper lobe. This is new as compared to prior study. Correlation with the CT scan of the thorax is recommended. Electronically Signed: Meño Rausch MD at 15:06 EST , Charges/Coding Visit Charges Inpatient E&M: 47192 Init Hosp L2
[2021-09-05 15:46] LABS: Bacteria 0 SEEN /hpf (None Seen); Mucous, Urine 0 SEEN /hpf (<or=2+); Red Blood Cells-Urine 0 SEEN /hpf (0-5); Squamous Epithelial Cells - UA 0 SEEN /hpf (0-5); White Blood Cells 0 SEEN /hpf (0-5)
[2021-09-05 16:07] LABS: Color, Urine Yellow (Yellow); Glucose, Dipstick 1000 mg/dl (Normal); Ketone-Dipstick 15 mg/dl (Negative); Leukocyte Esterase-Dipstick Negative /ul (Negative); Nitrite-Dipstick Negative (Negative); Occult Blood-Urine Negative /ul (Negative); Protein-Dipstick Negative (Negative); Specific Gravity, Urine 1.015 (1.002-1.030); Urine Bilirubin Dipstick Negative (Negative); Urine Clarity Clear (Clear); Urine Urobilinogen Normal (Normal)
[2021-09-05 16:30] LABS: Bedside Glucose 179 mg/dL (70-110)
[2021-09-05 17:00] VITALS: BMI 29.5
[2021-09-05 18:56] VITALS: BP 140/76; PULSE 101; RESP 28; TEMP 36.6; O2SAT 96
[2021-09-05 22:11] VITALS: BP 140/76; PULSE 101
[2021-09-05] MEDS: Metoprolol Tartrate 25 MG Tablet PO (22:11)
[2021-09-05] MEDS: Doxazosin 1 MG Tablet 2 MG PO (22:13)
[2021-09-05 22:51] LABS: Bedside Glucose 105 mg/dL (70-110)
--- NOTE | 2021-09-05 23:56 | NURSING ---
RESPIRATORY THERAPIST BRINGS BIPAP MACHINE TO PT'S ROOM AND APPLIES IT TO PT.
[2021-09-06] VITALS (10 sets, daily range): BP systolic 118–151; BP diastolic 59–70; PULSE 74–88; RESP 14–18; TEMP 36.1–36.2; O2SAT 91–95; BMI 29.5
[2021-09-06 07:06] LABS: Bedside Glucose 72 mg/dL (70-110)
[2021-09-06] MEDS: Insulin Lispro 100 UNIT/ML INSULN.PEN 12 UNIT SC ×3 (08:01→16:29)
[2021-09-06] MEDS: Aspirin 81 MG TAB.CHEW PO (09:06)
[2021-09-06] MEDS: Metoprolol Tartrate 25 MG Tablet PO ×2 (09:06→21:21)
[2021-09-06] MEDS: Empagliflozin 25 MG Tablet PO (09:06)
[2021-09-06] MEDS: Mupirocin Ointment 22gm Tube 1 APPLIC TOPICAL ×2 (09:06→21:22)
[2021-09-06] MEDS: Enoxaparin 40 MG/0.4 ML Syringe SC (09:07)
[2021-09-06] MEDS: Clotrimazole 10 MG Troche MUCOUS MEM ×3 (09:07→21:21)
[2021-09-06] MEDS: Senna/Docusate Sodium 1 Tablet 2 TABLET PO ×2 (09:08→21:20)
[2021-09-06] MEDS: Glucerna Shake 120 ML LIQUID PO ×2 (09:10→11:28)
[2021-09-06] MEDS: Menthol/Lanolin/Calamine/Znox 113 GM Tube 1 APPLIC TOPICAL ×2 (09:19→21:28)
--- NOTE | 2021-09-06 10:35 | PN_ITS ---
Progress Note Afebrile VSS - Still with + orthostatics today. HR goes down when standing but not as significantly as better. Lisinopril is currently on hold and the doxazosin was decreased from 4 mg nightly to 2 mg nightly. Metoprolol was decreased from 50 BID to 25 BID. The weight is up approximately 6 pounds in the past 2 days Maintaining appropriate oxygen saturation on RA Oral intake is poor He is incontinent of urine. His total intake yesterday was 2809. Discussed with nursing - no problems that need addressed Reviewed the PT/OT/ST notes Medication list reviewed. UA yesterday was negative for infection. He has ketones in the urine. The microalbumin/creatinine ratio within the past year is normal at 7.1. The blood sugar record was reviewed. At bedtime blood sugar was 105 and this a.m. he was 72. The psychologist personnel has diagnosed him with severe malnutrition and has increased the calories to 2000 daily but, he is not eating much and yes terday he aspirated some pudding. I reviewed the radiology report from the CXR and he reports a linear density in the RUL peripherally and there is a density in the TODD and he recently had a CT chest and this density has 2 components. He has been AF for the duration of his stay but, he does aspirate at times. Lungs have been CTA. I reviewed Dr. Luciano's consult and appreciated his suggestions. He was on AVAPS last night and tolerated well. He denies CP, SOB at rest, lightheadedness/dizziness, N/V/Abd pain. Nutrition Malnutrition Evidence of Malnutrition Exists Yes Malnutrition (severe): Acute Illness/Injury Evidenced By Suboptimal Energy Intake ( Severe),Weight Loss (Severe) Clinical Problem Acute Disease or Injury Related Malnutrition Etiology Severe protein-calorie malnutrition in the context of acute illness related to swallowing difficulty/stroke Signs/Symptoms as evidenced by mechanically altered diet/thickened liquids , 5% wt loss x 1 week and PO at meals~50%/meeting less than 50% estimated nutrition needs Status Active Problem Recommendation Dietitian Recommendations/Changes Will adjust diet to 2000 calorie/consistent carbohydrate/cardiac with consistency as per CHEMICAL DEPENDENCY NURSE--- currently soft/bite-sized food and honey-thick liquids. Will add 120ml glucerna shake TID w/ medpass. Will add ensure pudding BID w/ lunch and dinner for tolerance. Will trend weight closely as PO established with meals. Physical Exam Const alert and no apparent distress Constitutional Narrative: Sitting in the recliner and waiting for the ST to have lunch. He denies cephalgia, vision disturbance, pain in the R eye. General Appearance: cooperative and comfortable HEENT HEENT Narrative: MM are more moist than previously but, still on the dry side. The coating on the tongue is gradually resolving. He denies pain in the mouth and bad taste in his mouth. No pain with swallowing. Face and Sinus: other The incisions are intact and there is no erythema and no purulent DC. He has bruising in the periorbital area. The edema is mild over the eyebrow Eyes PERRL, EOMs intact bilaterally, conjunctivae normal and no scleral icterus Resp Resp Narrative: Diminished BS's throughout. He has some wheezing in the RUL and the RLL today. No crackles. The Left lung is clear. Effort and Inspection: able to speak in complete sentences and symmetric chest movement Cardio regular rate, regular rhythm, no murmurs and no gallops Cardio Narrative: distant heart sounds GI normal to inspection, nondistended, normoactive bowel sounds, soft to palpation and non-tender Extremity no calf tenderness and no pedal edema Skin Wound Narrative: see narrative under HEENT about lacerations of the R eyebrow Neuro Neuro Narrative: R facial droop. Dysarthria is better today and I can understand him clearly. Still with R hemiparesis and cognitive dysfunction but, The ST tells me that he did much better on the cognition activities today and he is more alert today. Psych affect normal Appearance: grossly normal and appropriate Activity / Motor Behavior: appropriate eye contact Speech: slurred Mood & Affect: euthymic mood Assessment & Plan Assessment/Plan (1) Physical debility: (2) Left middle cerebral artery stroke: (3) Occlusion of left middle cerebral artery: (4) Dysarthria: (5) Hemiparesis of right dominant side due to cerebral infarction: (6) Dysphagia as late effect of stroke: (7) Aspiration into airway: (8) Sleep-disordered breathing: (9) Hypoxemia: (10) Acute respiratory acidosis: (11) Hypotension: (12) Malnutrition: PLAN: 1. Start Duoneb aerosols 4 X's a day while awake. 2. If any fever will start an antibiotic for aspiration 3. Continue the IV fluids since oral intake is still poor. 4. No hx of CAD.......the beta dustin is likely blunting the chronotropic response when he goes from lying to standing. He is orthostatic but, asymptomatic now. Will decrease the Metoprolol to 12.5 BID and amybe DC in a day or 2 and use an ABDELRAHMAN instead for BP. 5. Continue AVAPS at night. 6. Needs a sleep study - will try and schedule for the night of discharge from rehab. 7. He is agreeable to following up with Dr. Michael rey DC for PFT's, COPD and management for sleep apnea. 8. Continue to monitor calories and oral intake. 9. Change the Lantus to once daily and give at supper. Continue to monitor the BS's AC and HS and adjust insulin to maintain the BS's between 90 and 180. Visit Charges Inpatient E&M: 83574 Subs Hosp L2
[2021-09-06 11:36] LABS: Bedside Glucose 113 mg/dL (70-110)
[2021-09-06] MEDS: 0.9% Normal Saline 1,000 ML 75 ML IV (13:25)
[2021-09-06 16:45] LABS: Bedside Glucose 131 mg/dL (70-110)
[2021-09-06] MEDS: Ipratropium/Albuterol Sulfate 3 ML AMPUL.NEB INHALATION (18:44)
[2021-09-06 21:16] LABS: Bedside Glucose 118 mg/dL (70-110)
[2021-09-06] MEDS: Doxazosin 1 MG Tablet 2 MG PO (21:33)
[2021-09-07] VITALS (7 sets, daily range): BP systolic 141–153; BP diastolic 69–75; PULSE 79–86; RESP 14–18; TEMP 36.2–36.8; O2SAT 94–97; BMI 29.5
[2021-09-07] MEDS: 0.9% Normal Saline 1,000 ML 75 ML IV (02:36)
[2021-09-07 07:05] LABS: Bedside Glucose 96 mg/dL (70-110)
--- NOTE | 2021-09-07 08:46 | PCM.PN.BLA ---
Progress Note Afebrile Systolic blood pressure is often mildly elevated. He is tolerating AVAPS well and is more alert in the a.m.'s Oral fluid intake is picking up and yesterday he had 1260 orally and 1000 IV Still incontinent of urine. He had a post void residual last evening of 240 mL. On 09/05/2021 the post void residual was 117. Doxazosin dose has been decreased to 2 mg from 4 mg in that time due to orthostatic hypotension. No fecal incontinence. The blood sugar record was reviewed. Blood sugars are well controlled with no hypoglycemia over the past 24 hours. Fasting blood sugar this morning was 96. Blood sugar at at bedtime was 118 and he received 28 units of Lantus with supper. The AM Lantus was discontinued yesterday and will continue to monitor the BS's AC and HS He is very alert and appropriate today. Speech is louder and more crisp. He is enunciating better. MM are moist Lungs very diminished throughout with wheezing in the RUL posteriorly, no crackles, not tachypneic, no conversational dyspnea No calf pain, no peripheral edema. No rashes and no skin breakdown. The periorbital swelling on the right is decreasing. The sutures are intact and there is no erythema and no purulent DC. Assessment & Plan Assessment/Plan (1) Malnutrition: (2) Hypoxemia: (3) Sleep-disordered breathing: (4) Acute respiratory acidosis: (5) Left middle cerebral artery stroke: (6) Uncontrolled type 2 diabetes mellitus: (7) HTN (hypertension): (8) Head injury due to trauma: (9) Laceration: (10) COPD (chronic obstructive pulmonary disease): (11) COPD exacerbation: PLAN: 1. DC the IV fluids after the current bag has infused. 2. Check a BMP on Saturday 3. I suspect that he may have been hypoxic for several years. Looking back he has had an elevated HGB as far back as 2013 and that was in 2 separate months. The serum bicarb has been gradually going up since 2014. 4. No cephalgia and no dizziness or nausea - will likely remove sutures on Saturday 5. Continue therapy 6. Sleep study at [place] and then follow up with Dr. Rodriguez for evaluation of suspected COPD and tx of ANN MARIE 7. He is tolerating the duonebs. Will continue. I suspect he has an exacerbation of COPD due to aspiration on Saturday. Persistent wheezing in the RUL posteriorly. No fevers, denies SOB at rest. He has an occasional cough. No CP. Visit Charges Inpatient E&M: 86402 Subs Hosp L2
[2021-09-07] MEDS: Insulin Lispro 100 UNIT/ML INSULN.PEN 12 UNIT SC ×3 (08:58→16:56)
[2021-09-07] MEDS: Empagliflozin 25 MG Tablet PO (08:58)
[2021-09-07] MEDS: Metoprolol Tartrate 25 MG Tablet PO ×2 (08:58→21:53)
[2021-09-07] MEDS: Enoxaparin 40 MG/0.4 ML Syringe SC (08:58)
[2021-09-07] MEDS: Aspirin 81 MG TAB.CHEW PO (08:58)
[2021-09-07] MEDS: Glucerna Shake 120 ML LIQUID PO ×3 (08:59→16:59)
[2021-09-07] MEDS: Mupirocin Ointment 22gm Tube 1 APPLIC TOPICAL ×2 (08:59→21:51)
[2021-09-07] MEDS: Clotrimazole 10 MG Troche MUCOUS MEM ×3 (08:59→21:54)
[2021-09-07] MEDS: Senna/Docusate Sodium 1 Tablet 2 TABLET PO ×2 (08:59→21:55)
[2021-09-07] MEDS: Menthol/Lanolin/Calamine/Znox 113 GM Tube 1 APPLIC TOPICAL ×2 (09:10→21:56)
[2021-09-07 11:05] LABS: Bedside Glucose 148 mg/dL (70-110)
--- NOTE | 2021-09-07 13:52 | CASEMGMT ---
Social Work IDT met with patient and for Team meeting. Discussed patient's progress in PT/OT/ST and nursing. Explained Medicare approved 18 days with DC 3/3. The goal is for pt to return home with . 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 did provide FMLA paperwork to take off work to be at home with pt. Pt is new on O2 and Dr ordered a sleep study at time of DC. SW provided and explained Stroke Support Group brochure. agreeable to be added to mailing list. Will ReTeam next week. SW to continue to follow for discharge planning. Pt alert and completed BIMS. Pt scored 5/15. VALERY LandaverdeW
[2021-09-07 16:25] LABS: Bedside Glucose 97 mg/dL (70-110)
[2021-09-07 21:06] LABS: Bedside Glucose 136 mg/dL (70-110)
[2021-09-07] MEDS: Doxazosin 1 MG Tablet 2 MG PO (21:52)
[2021-09-08] VITALS (7 sets, daily range): BP systolic 133–146; BP diastolic 71–74; PULSE 75–87; RESP 14–18; TEMP 36.3–36.4; O2SAT 93–97; BMI 29.5
[2021-09-08] MEDS: Clotrimazole 10 MG Troche MUCOUS MEM ×5 (05:23→21:31)
[2021-09-08 06:06] LABS: Bedside Glucose 103 mg/dL (70-110)
[2021-09-08] MEDS: Metoprolol Tartrate 25 MG Tablet PO ×2 (07:45→21:31)
[2021-09-08] MEDS: Insulin Lispro 100 UNIT/ML INSULN.PEN 12 UNIT SC ×3 (07:45→16:58)
[2021-09-08] MEDS: Empagliflozin 25 MG Tablet PO (07:45)
[2021-09-08] MEDS: Aspirin 81 MG TAB.CHEW PO (07:45)
[2021-09-08] MEDS: Enoxaparin 40 MG/0.4 ML Syringe SC (07:46)
[2021-09-08] MEDS: Senna/Docusate Sodium 1 Tablet 2 TABLET PO ×2 (07:48→21:31)
[2021-09-08] MEDS: Mupirocin Ointment 22gm Tube 1 APPLIC TOPICAL ×2 (08:45→21:37)
--- NOTE | 2021-09-08 11:15 | ST.MBS ---
Modified Barium Swallow - Patient Information Study Date: 09/08/21 Study Time: 11:00 Direct Billable Minutes: 125 Total Minutes procedure & reportin Diagnosis: Dysphagia Referring Physician: Zoë Lenz Reason for Referral: Eric Blandon is a 66 y/o male who presented to [facility] ED on 08/27/21 w/ c/o RUE weakness and slurred speech, which progressed while he was in the ED to complete aphasia. NC CTB showed increased attenuation of the left MCA possibly representing a dense MCA sign from an acute LMCA infarct. CTA of the head and neck showed an occluded proximal left common carotid artery and left carotid bifurcation with reconstitution of the left internal carotid artery distal to the cavernous segment, occluded proximal left middle cerebral artery and mild right carotid stenosis estimated at 10%. Consult was obtained with [facility] teleneurology. The NIHSS was 14 at the time of the consult. Since presentation was within 4 hours of LKW TPA was recommended and transfer to [facility] for LVO. Additional imaging was done at [facility] and no thrombectomy was attempted due to chronic occlusion of the L Carotid. MRI was consistent with a recent infarct in the left MCA territory involving the left basal ganglia and insula. There was also a small age-indeterminate infarct in the left superior frontal gyrus. Eric was admitted to [facility] Inpatient Rehab Unit on 09/03/21 w/ orders from [facility] for for 3 hours of therapy daily to restore function/independence as close as possible to the level prior to the CVA. Diet at the time of transfer to [facility] was Soft and Bite Size Textures IDDSI 6/Moderately Thick Liquid IDDSI 2 w/ small bites/sips, alternate bites/sips - liquid wash, lingual sweep for oral clearance, seated upright 90 degrees for intake. Eric was referred for a MBS to objectively assess swallow function under fluoroscopy, given the severity of coughing/suspected aspiration consistently present w/ PO intake. MBS necessary to improve specificity of dysphagia interventions selected and further elucidate necessary diet texture/liquid consistency and compensatory strategy recommendations. Medical History: BPH (benign prostatic hyperplasia), HLD (hyperlipidemia), HTN (hypertension), Stroke/cerebrovascular accident, Tobacco dependence in remission, Uncontrolled type 2 diabetes mellitus Past Instrumental Swallow Evaluation Dates/Results: 08/28/21 - MBS Hang Blandon was seen for Modified Barium Swallow Study and presents with mild-moderate oropharyngeal dysphagia (per MOOKIE Level 4, aspiration with ineffective cough response) s/p admission for left MCA CVA. Oral phase characterized by decreased lingual coordination impacting bolus control (posterior loss), prolonged mastication and AP transit, diffuse residuals cleared with liquid wash and subsequent swallows. Pharyngeal phase impacted by delayed swallow initiation vs posterior spillage, incomplete laryngeal vestibule closure resulting in aspiration of thin liquids during the swallow. Pt sensate with cough response however aspirated material not completely ejected from airway. Mildly thick liquids effective to eliminate aspiration. Trace pharyngeal residuals cleared with liquids wash and subsequent swallows. Given above, recommend initiation of soft and bite size solids (effort/prolonged mastication of regular solids), mildly thick liquids (effective to eliminate aspiration) with initial 1:1 supervision. Pt is appropriate to be advanced at bedside, anticipate ongoing improvements in swallow function s/p acute CVA. 08/30/21 - FEES ?Hang Blandon presents with mild-moderate oropharyngeal dysphagia s/p left MCA CVA. Pt with generalized oral weakness resulting in delayed bolus preparation/mastication and oral residue; question if oral weakness also impacting ability to regulate bolus size. Impaired coordination resulting in impaired bolus control and posterior loss. This, in addition to ?impaired hyolaryngeal elevation (difficult to determine d/t FEES visualization limitations, but per MBS pt with incomplete laryngeal vestibule closure with thin liquids). These deficits resulting in airway penetration vs aspiration of thin liquids, and airway penetration vs aspiration of mildly thick liquids. Pt with significant cough in response to airway events and when asked, pt endorsed feeling as though thin and mildly thick liquids went down the wrong way. Pt with trace-mild pharyngeal residue. This residue vs ? Retrograde flow resulted in additional post-swallow penetration of mildly thick liquids noted, which cleared with spontaneous coughing. Based on performance during MBS (which demonstrated aspiration with spontaneous cough with thin liquids), clinical performance, and pt endorsing feeling thin liquids/mildly thick liquids going down the wrong way with significant cough/pt appearing uncomfortable (despite no green residue observed in trachea; unsure if sensitive to penetration vs true aspiration) recommend PO diet, soft and bite sized solids with moderately thick liquids, 1:1 assist for verbal cues for liquid wash, small sips. Pt in agreement. If pt continues to demonstrate cough with current diet, given there was no aspiration observed with moderately thick liquids or solids, may consider Gl consult given questionable retrograde flow. RADIOGRAPHY TECHNICIAN to follow for ongoing dysphagia management. Dentition: Natural Teeth Mental Status: Impaired - CVA Respiratory Status: Oxygenating on 2L/M nasal cannula - Penetration-Aspiration Scale Penetration-Aspiration Scale: OBJECTIVE ASSESSMENT OF SWALLOW FUNCTION (QUANTITATIVE ? PER TRIAL): PENETRATION / ASPIRATION SCALE (PETERSEN): 1 = does not enter airway 2 = enters airway/above vocal folds/ejected 3 = enters airway/above vocal folds/not ejected 4 = enters airway/contacts vocal folds/ejected 5 = enters airway/contacts vocal folds/not ejected 6 = enters airway/below vocal folds/ejected 7 = enters airway/below vocal folds/not ejected despite effort 8 = enters airway/below vocal folds/no effort - Penetration-Aspiration Scale Score Thin Liquid via teaspoon Result: 1= does not enter airway Thin Liquid via teaspoon Trial 2 Result: 1= does not enter airway Thin Liquid via large single sip from cup Result: 1= does not enter airway Thin Liquid via small single sip from cup Result: 1= does not enter airway Thin Liquid via sequential sips from cup Result: 3= enters airways/above vocal folds/not ejected Comment: cued post-prandial cough and re-swallow was effective to expel contrast from the laryngeal vestibule Thin Liquid via single sip from straw Result: 1= does not enter airway Thin Liquid via sequential sips from straw Result: 1= does not enter airway Pudding Result: 1= does not enter airway Pudding + screening for esophageal clearance Result: 1= does not enter airway Thin Liquid via small single sip from cup Trial 2 Result: 1= does not enter airway Farmers Thick Liquid via small single sip from cup Result: 1= does not enter airway Honey Thick Liquid via small single sip from cup Result: 1= does not enter airway Honey Thick Liquid via large single sip from cup Result: 1= does not enter airway - Oral Phase Labial Seal: Escape beyond mid-chin Tongue Control During Bolus Hold: Escape to lateral buccal cavity/floor of mouth Bolus Preparation/Mastication: Timely and efficient chewing and mashing Bolus Transport/Lingual Motion: Slowed tongue motion Oral Residue: Residue collection on oral structures - Pharyngeal Phase Initiation of Pharyngeal Swallow: Bolus head in pyriforms Soft Palate Elevation: No bolus between soft palate and pharyngeal wall Laryngeal Elevation: Partial superior movement thyroid cart/partial apprx aryt-epig petiole Anterior Hyoid Excursion: Partial anterior movement Epiglottic Movement: Complete inversion Laryngeal Vestibule Closure at Height of Swallow: Incomplete; narrow column of air/contrast in laryngeal vestibule Pharyngeal Stripping Wave: Present - complete Pharyngoesophageal Segment Opening: Complete distension and complete duration; no obstruction of flow Tongue Base Retraction: Narrow column of contrast between tongue base & post. pharyngeal wall Pharyngeal Residue: Trace residue within or on pharyngeal structures - Esophageal Phase Esophageal Clearance: Complete clearance - Diagnosis/Impression Diagnosis: mild oropharyngeal dysphagia (R13.12) Impression: This patient's swallow function is characterized by: insufficient labial strength/control resulting in anterior bolus loss, liquids > solids suboptimal lingual control and reduced intraoral sensitivity resulting in lack of bolus cohesion w/ pooling/pocketing in the R buccal cavity reduced base of tongue retraction, although pharyngeal contraction sufficiently compensated w/ post-prandial residue accumulation on the oral tongue and pharyngeal tongue base, residue increased as liquid viscosity increased swallow apraxia noted when cued to initiate a volitional second swallow to clear lingual residue, associated swallow onset delay (2-3 seconds in length) suboptimal bolus location upon swallow onset in conjunction w/ incomplete laryngeal vestibule closure during deglutition w/ contributed to laryngeal vestibule penetration w/ sequential intake of thin liquid via cup penetration w/ sequential swallows did not completely eject post-deglutition, but a cued cough and re-swallow was effective to eject penetration despite mildly reduced laryngeal elevation/anterior hyoid excursion w/ bolus spillage to the valleculae/pyriforms prior to swallow onset, the patient was able to maintain adequate airway closure w/ no aspiration across all trials esophageal clearance screening revealed quick esophageal transit w/ complete clearance Performance during this study does not align with the severity of coughing/aspiration evidenced during meals. Reduced large bolus size in conjunction w/ intraoral sensitivity in conjunction is likely contributing to insufficient oral clearance w/ subsequent post-prandial pharyngeal spillage resulting in penetration/aspiration. Witnessed episodes of coughing/choking on own saliva further confirm the suspicion that impaired oral sensitivity and self-awareness are the primary causative factors in poor swallow performance during meals. Diet Recommended: Soft & Bite Sized Texture (IDDSI: 6) Thin Liquid (IDDSI: 0) Diet recommendation to be initiated on 09/09/21 pending performance during a meal analysis under direct RADIOGRAPHY TECHNICIAN supervision - STRICT adherence to the recommended aspiration precautions Supervision Required: yes direct 1:1 staff supervision frequent verbal/visual/tactile cues as needed to ensure consistent use of recommended compensatory strategies Compensatory Strategies Recommended: seated upright w/ hip flexion at 90 degrees for intake SLOW rate of intake small bites, chew thoroughly, swallow 2x to ensure oropharyngeal bolus clearance ensure oral cavity is clear before taking next bite/sip small sips, one at a time, swallow 2x to ensure oropharyngeal bolus clearance alternate bites and sips at reasonable intervals check right cheek for pocketing, cue to clear w/ lingual sweep oral hygiene following meals Continued dysphagia intervention recommended: Yes continued diet texture management training and implementation of recommended compensatory strategies training and implementation of recommended oropharyngeal strengthening exercises to facilitate improved lingual/labial control, oral sensitivity, swallow onset, laryngeal vestibule closure and tongue base retraction patient and caregiver education regarding dysphagia s/p CVA and dysphagia risks associated with COPD Education: Results and recommendations were discussed with the Patient immediately following MBS completion, with the Patient verbalizing understanding and agreement with all recommendations and education provided. Reinforcement will likely be necessary d/t impairment in attention and memory s/p CVA. Referrals: If coughing continues despite strict implementation of aspiration precautions, GI referral should be considered to assess for post prandial aspiration of retrograde flow - although clinical suspicion for dysphagia d/t GI dysfunction is low. - Status Active ST Patient: Active - Contact Information [facility] Speech Therapy:: Marbella Rhodes M.A., [facility]-RADIOGRAPHY TECHNICIAN [place] [id number] [place] [address] [phone] [email or web address]
[2021-09-08 12:01] LABS: Bedside Glucose 136 mg/dL (70-110)
[2021-09-08] MEDS: Menthol/Lanolin/Calamine/Znox 113 GM Tube 1 APPLIC TOPICAL ×2 (12:34→21:38)
[2021-09-08] MEDS: 0.9% Saline Lock 10 ML Syringe IV ×2 (17:02→21:37)
[2021-09-08 17:16] LABS: Bedside Glucose 170 mg/dL (70-110)
[2021-09-08] MEDS: Doxazosin 1 MG Tablet 2 MG PO (21:31)
[2021-09-08 22:00] LABS: Bedside Glucose 99 mg/dL (70-110)
[2021-09-09] VITALS (9 sets, daily range): BP systolic 149–153; BP diastolic 69–79; PULSE 72–86; RESP 14–20; TEMP 35.9–36.8; O2SAT 89–98; BMI 29.5
[2021-09-09] MEDS: Clotrimazole 10 MG Troche MUCOUS MEM ×5 (06:03→21:25)
[2021-09-09 07:06] LABS: Bedside Glucose 116 mg/dL (70-110)
[2021-09-09] MEDS: Insulin Lispro 100 UNIT/ML INSULN.PEN 12 UNIT SC ×3 (08:07→16:54)
--- NOTE | 2021-09-09 09:00 | NURSING ---
Flat affect but cooperative today with care. Encourage PO fluids. Confused at times and safety awareness is poor to fair. Patient does not let staff know of bathroom needs and is incontinent.
[2021-09-09] MEDS: Metoprolol Tartrate 25 MG Tablet PO ×2 (09:36→21:24)
[2021-09-09] MEDS: Empagliflozin 25 MG Tablet PO (09:36)
[2021-09-09] MEDS: Enoxaparin 40 MG/0.4 ML Syringe SC (09:37)
[2021-09-09] MEDS: Aspirin 81 MG TAB.CHEW PO (09:38)
[2021-09-09] MEDS: Mupirocin Ointment 22gm Tube 1 APPLIC TOPICAL ×2 (09:40→21:23)
[2021-09-09] MEDS: Menthol/Lanolin/Calamine/Znox 113 GM Tube 1 APPLIC TOPICAL ×2 (09:42→21:24)
--- NOTE | 2021-09-09 11:24 | PCM.PN.BLA ---
Progress Note AF VSS The laceration R eyebrow is healing well. There is no erythema and no purulent DC. No dehiscence. We laid him flat in bed to remove the sutures. They were put in Saturday late afternoon. 6-0 Ethilon All 7 sutures were removed. He tolerated the procedure well. No dehiscence after the sutures removed. Will keep a dry bandage over the area to help prevent him scratching up there. When he lays flat he quits breathing. He is on AVAPS at night but, will need a sleep study SHELLI after DC. He is going to follow up with Dr. Rodriguez post DC. He has been refusing the aerosols......no longer wheezing. Will change to PRN. How long he wears the AVAPS at night is variable. I suspect this is why his level of alertness and focus waxes and wanes from day to day. He has very poor safety awareness and needs a moderate amount of assistance. His will be brought in for family training to see if she will be able to handle him. I have a feeling he is going to need to go to SNF. Would like to DC, do the sleep study and then admit to SNF if possible. Will discuss with ERICA and the party plan sales unit sales leader. Visit Charges Inpatient E&M: 16934 Subs Hosp L1
[2021-09-09 11:36] LABS: Bedside Glucose 150 mg/dL (70-110)
[2021-09-09] MEDS: 0.9% Saline Lock 10 ML Syringe IV (17:03)
[2021-09-09 17:15] LABS: Bedside Glucose 109 mg/dL (70-110)
[2021-09-09] MEDS: Doxazosin 1 MG Tablet 2 MG PO (21:24)
[2021-09-09 22:01] LABS: Bedside Glucose 106 mg/dL (70-110)
--- NOTE | 2021-09-10 01:27 | CPS ---
pt removed bipap mask
[2021-09-10] MEDS: Clotrimazole 10 MG Troche MUCOUS MEM ×5 (05:31→19:58)
[2021-09-10 07:01] LABS: Bedside Glucose 91 mg/dL (70-110)
[2021-09-10 07:27] VITALS: BP 128/68; PULSE 75; RESP 17; TEMP 36.8; O2SAT 98
[2021-09-10 08:07] VITALS: PULSE 70
[2021-09-10] MEDS: Insulin Lispro 100 UNIT/ML INSULN.PEN 12 UNIT SC ×3 (08:07→17:19)
[2021-09-10] MEDS: Metoprolol Tartrate 25 MG Tablet PO ×2 (08:07→19:58)
[2021-09-10] MEDS: Aspirin 81 MG TAB.CHEW PO (08:08)
[2021-09-10] MEDS: Empagliflozin 25 MG Tablet PO (08:08)
[2021-09-10] MEDS: Enoxaparin 40 MG/0.4 ML Syringe SC (08:08)
[2021-09-10] MEDS: Senna/Docusate Sodium 1 Tablet 2 TABLET PO (08:09)
[2021-09-10] MEDS: Mupirocin Ointment 22gm Tube 1 APPLIC TOPICAL ×2 (09:45→20:09)
[2021-09-10] MEDS: Menthol/Lanolin/Calamine/Znox 113 GM Tube 1 APPLIC TOPICAL ×2 (09:45→20:09)
[2021-09-10 12:21] LABS: Bedside Glucose 119 mg/dL (70-110)
[2021-09-10 15:28] VITALS: BMI 29.5
[2021-09-10] MEDS: 0.9% Saline Lock 10 ML Syringe IV (15:29)
[2021-09-10 16:46] LABS: Bedside Glucose 147 mg/dL (70-110)
[2021-09-10 19:58] VITALS: BP 159/69; PULSE 83
[2021-09-10] MEDS: Doxazosin 1 MG Tablet 2 MG PO (19:58)
[2021-09-10 20:00] VITALS: BP 159/69; PULSE 83; RESP 17; TEMP 37; O2SAT 96
[2021-09-10 21:20] LABS: Bedside Glucose 176 mg/dL (70-110)
[2021-09-11] VITALS (7 sets, daily range): BP systolic 118–133; BP diastolic 55–71; PULSE 80–86; RESP 14–18; TEMP 36.6–37; O2SAT 96–97; BMI 29.5
[2021-09-11] MEDS: Enoxaparin 40 MG/0.4 ML Syringe SC (05:10)
[2021-09-11] MEDS: Clotrimazole 10 MG Troche MUCOUS MEM ×2 (05:10→08:43)
[2021-09-11 06:08] LABS: Anion Gap 3 (5-15); BUN 13 mg/dL (7-18); BUN/Creat Ratio 19.6 RATIO (10-20); Calcium,Total 8.7 mg/dL (8.5-10.1); Chloride 106 mmol/L (98-107); Creatinine, Serum 0.66 mg/dL (0.70-1.30); EST Glomerular Filtration Rate 127 mL/min (>60); Est Glom Filt Rate - Afr Amer 154 mL/min (>60); Glucose 85 mg/dL (74-106); Potassium 4.2 mmol/L (3.5-5.1); Sodium Level 140 mmol/L (136-145)
[2021-09-11 06:31] LABS: Bedside Glucose 101 mg/dL (70-110)
[2021-09-11] MEDS: Insulin Lispro 100 UNIT/ML INSULN.PEN 12 UNIT SC ×2 (08:38→12:01)
[2021-09-11] MEDS: Empagliflozin 25 MG Tablet PO (08:38)
[2021-09-11] MEDS: Aspirin 81 MG TAB.CHEW PO (08:38)
[2021-09-11] MEDS: Metoprolol Tartrate 25 MG Tablet PO ×2 (08:39→21:12)
[2021-09-11] MEDS: Menthol/Lanolin/Calamine/Znox 113 GM Tube 1 APPLIC TOPICAL ×2 (08:44→21:11)
--- NOTE | 2021-09-11 08:47 | PCM.PROGNOTE ---
Subjective Subjective Afebrile VSS Maintaining appropriate oxygen saturation on RA while awake but hypoxic while sleeping. Has not been wearing the AVAPS at night and it is very obvious when he doesn't because he is drowsy and obtunded the next day. Oral intake is marginal.....needs frequent reminders to drink water. Discussed with nursing - no problems that need addressed other than not wearing the mask at night. Reviewed the PT/OT/ST notes Medication list reviewed. The blood sugar record was reviewed. The blood sugars have been well controlled with no hypoglycemia over the past 3 days. The AM blood sugar is WNL but is sometimes in the 90's....the lowest is 91. All lab was personally reviewed. Sodium, potassium and serum bicarb are all within normal limits today. The BUN is 13 and the creatinine is 0.66. Eric denies shortness of breath at rest, chest pain, calf pain, abdominal pain, nausea/vomiting, dysuria, lightheadedness. Denies cephalgia. He was refusing the aerosols and he is now PRN. Objective Data Objective Data Vital Signs: Vital Signs Temp Pulse Resp BP Pulse Ox 98.6 F 83 17 126/68 H 96 09/11/21 07:28 09/11/21 08:39 09/11/21 07:28 09/11/21 07:28 09/11/21 07:30 Oxygen Flow Rate (L/min) 1 Oxygen Delivery Method Nasal Cannula Weight: 186 lb 11.704 oz Body Mass Index (BMI) 29.5 Intake & Output: Intake and Output for Last 24 Hours 09/09/21 09/10/21 09/11/21 23:59 23:59 23:59 Intake Total 1060 / 1060 1060 / 1060 200 / 200 Output Total 500 / 500 Balance 560 / 560 1060 / 1060 200 / 200 Medical Nutrition Assessment Dietitian: Malnutrition Criteria Met Start: 09/04/21 17:12 Freq: Status: Active Protocol: Document 09/04/21 17:12 RMA (Rec: 09/04/21 17:12 RMA [id number]) Nutrition Malnutrition Evidence of Malnutrition Exists Yes Malnutrition (severe): Acute Illness/Injury Evidenced By Suboptimal Energy Intake ( Severe),Weight Loss (Severe) Clinical Problem Acute Disease or Injury Related Malnutrition Etiology Severe protein-calorie malnutrition in the context of acute illness related to swallowing difficulty/stroke Signs/Symptoms as evidenced by mechanically altered diet/thickened liquids , 5% wt loss x 1 week and PO at meals~50%/meeting less than 50% estimated nutrition needs Status Active Problem Recommendation Dietitian Recommendations/Changes Will adjust diet to 2000 calorie/consistent carbohydrate/cardiac with consistency as per SUPERVISING EDITOR TRAILER--- currently soft/bite-sized food and honey-thick liquids. Will add 120ml glucerna shake TID w/ medpass. Will add ensure pudding BID w/ lunch and dinner for tolerance. Will trend weight closely as PO established with meals. Lab / Micro Data Result Diagrams: 09/04/21 05:35 09/11/21 05:04 Labs: Laboratory Results - last 24 hr 09/10/21 12:04: POC Glucose 119 H 09/10/21 16:40: POC Glucose 147 H 09/10/21 21:00: POC Glucose 176 H 09/11/21 05:04: Sodium 140, Potassium 4.2, Chloride 106, Carbon Dioxide 31.0, Anion Gap 3 L, BUN 13, Creatinine 0.66 L, Estim Creat Clear Calc 70.70, Est GFR (MDRD) Af Amer 154, Est GFR (MDRD) Non-Af 127, BUN/Creatinine Ratio 19.6, Glucose 85, Calcium 8.7 09/11/21 06:26: POC Glucose 101 Physical Exam Const no apparent distress Constitutional Narrative: he is drowsy today.......has not worn the AVAPS for the past 2 nights. General Appearance: cooperative Resp Resp Narrative: diminished BS's throughout. Nursing keeps documenting wheezing but, when I listen to him he has no wheezing and no crackles. BS's are diminished throughout but, the air exchange is better than it was at admission to rehab. Cardio regular rate, regular rhythm and no gallops GI normal to inspection, nondistended, normoactive bowel sounds, soft to palpation and non-tender Extremity no calf tenderness and no pedal edema Skin General Skin Exam: no breakdown Rashes: no rashes Assessment & Plan Assessment/Plan (1) Physical debility: (2) Left middle cerebral artery stroke: (3) Occlusion of left middle cerebral artery: (4) Dysarthria: PLAN: This has improved significantly since admission and he is now projecting his voice better and enunciating better. I have no trouble understanding him at this point. (5) Alan-neglect of right side: (6) Hemiparesis of right dominant side due to cerebral infarction: PLAN: He is getting stronger but still has visual and tactile neglect of the R side (7) COPD (chronic obstructive pulmonary disease): PLAN: Dr. Rodriguez will arrange PFT's as an OP and will also arrange follow up for the pulmonary nodule in the TODD (8) COPD exacerbation: PLAN: He denies SOB and is now wheeze free. Has not requested an aerosol since they were made PRN. (9) Malnutrition: PLAN: He is eating better and the sagger maker is following. (10) BPH (benign prostatic hyperplasia): PLAN: Had to decrease the doxazosin dose to 2 mg p.o. nightly due to orthostatic hypotension. Will recheck post void residuals x3. (11) Urinary incontinence: PLAN: I suspect this is related to the stroke but, because we decreased the Cardura at HS we need to r/o overflow incontinence. (12) Hypoxemia: PLAN: better. will check a pulse ox on RA after ambulation in the AM (13) Sleep-disordered breathing: PLAN: Overnight sleep study arranged for 09/25/21.......DC will be on 09/21 and we have not yet determined where he will go if he can not go home. Will have Renee come in for family training prior to DC so she can decide whether she will be able to provide adequate assistance if he goes home. (14) Uncontrolled type 2 diabetes mellitus: PLAN: Good control. No more hypoglycemia and rare BS> 200. Continue the current regimen. Charges/Coding Visit Charges Inpatient E&M: 19117 Subs Hosp L2
[2021-09-11 11:11] LABS: Bedside Glucose 132 mg/dL (70-110)
[2021-09-11] MEDS: NYSTATIN 500,000 UNIT/5 ML UDC 500000 UNIT PO ×4 (12:00→21:12)
[2021-09-11] MEDS: Mupirocin Ointment 22gm Tube 1 APPLIC TOPICAL ×2 (12:03→21:51)
[2021-09-11 16:31] LABS: Bedside Glucose 68 mg/dL (70-110)
[2021-09-11 16:56] LABS: Bedside Glucose 100 mg/dL (70-110)
[2021-09-11] MEDS: Insulin Lispro 100 UNIT/ML INSULN.PEN 6 UNIT SC (17:50)
[2021-09-11] MEDS: Doxazosin 1 MG Tablet 2 MG PO (21:11)
[2021-09-11] MEDS: Senna/Docusate Sodium 1 Tablet 2 TABLET PO (21:12)
[2021-09-11 21:55] LABS: Bedside Glucose 151 mg/dL (70-110)
[2021-09-12 03:05] VITALS: PULSE 82; RESP 14; RESP 17; O2SAT 94
[2021-09-12 05:00] VITALS: BMI 29.5
[2021-09-12] MEDS: Enoxaparin 40 MG/0.4 ML Syringe SC (05:37)
[2021-09-12 07:08] VITALS: BP 148/72; PULSE 86; RESP 18; TEMP 36.4; O2SAT 98
[2021-09-12 07:31] LABS: Bedside Glucose 141 mg/dL (70-110)
[2021-09-12] MEDS: Insulin Lispro 100 UNIT/ML INSULN.PEN 12 UNIT SC ×3 (07:53→16:49)
[2021-09-12] MEDS: Empagliflozin 25 MG Tablet PO (07:54)
[2021-09-12] MEDS: Aspirin 81 MG TAB.CHEW PO (07:54)
[2021-09-12 07:55] VITALS: BP 148/72; PULSE 86
[2021-09-12] MEDS: Metoprolol Tartrate 25 MG Tablet PO ×2 (07:55→20:40)
[2021-09-12] MEDS: NYSTATIN 500,000 UNIT/5 ML UDC 500000 UNIT PO ×4 (07:55→20:42)
[2021-09-12] MEDS: Senna/Docusate Sodium 1 Tablet 2 TABLET PO (07:55)
[2021-09-12] MEDS: Menthol/Lanolin/Calamine/Znox 113 GM Tube 1 APPLIC TOPICAL ×2 (07:56→20:48)
[2021-09-12] MEDS: Mupirocin Ointment 22gm Tube 1 APPLIC TOPICAL ×2 (07:56→20:49)
[2021-09-12 11:21] LABS: Bedside Glucose 166 mg/dL (70-110)
[2021-09-12 14:11] VITALS: BMI 29.5
[2021-09-12 18:07] LABS: Bedside Glucose 207 mg/dL (70-110)
[2021-09-12 19:24] VITALS: BP 139/63; PULSE 87; RESP 16; TEMP 36.7; O2SAT 99
[2021-09-12 20:40] VITALS: PULSE 87
[2021-09-12] MEDS: Doxazosin 1 MG Tablet 2 MG PO (20:40)
[2021-09-12] MEDS: 0.9% Saline Lock 10 ML Syringe IV (21:08)
[2021-09-12 22:10] LABS: Bedside Glucose 139 mg/dL (70-110)
[2021-09-12 22:25] VITALS: PULSE 99; RESP 14; RESP 18; O2SAT 96
[2021-09-13] VITALS (10 sets, daily range): BP systolic 134–193; BP diastolic 69–96; PULSE 79–98; RESP 14–19; TEMP 36.4–37.4; O2SAT 94–97; BMI 29.5
--- NOTE | 2021-09-13 03:06 | NURSING ---
Reviewed and agree with MANAGER STUDIO documentation and assessment charting.
[2021-09-13] MEDS: Enoxaparin 40 MG/0.4 ML Syringe SC (05:10)
[2021-09-13 06:31] LABS: Bedside Glucose 144 mg/dL (70-110)
[2021-09-13] MEDS: Metoprolol Tartrate 25 MG Tablet PO ×2 (08:04→21:30)
[2021-09-13] MEDS: Empagliflozin 25 MG Tablet PO (08:04)
[2021-09-13] MEDS: Insulin Lispro 100 UNIT/ML INSULN.PEN 12 UNIT SC ×3 (08:04→17:14)
[2021-09-13] MEDS: Aspirin 81 MG TAB.CHEW PO (08:04)
[2021-09-13] MEDS: NYSTATIN 500,000 UNIT/5 ML UDC 500000 UNIT PO ×3 (08:05→21:30)
[2021-09-13] MEDS: Menthol/Lanolin/Calamine/Znox 113 GM Tube 1 APPLIC TOPICAL ×2 (08:06→23:02)
[2021-09-13] MEDS: Mupirocin Ointment 22gm Tube 1 APPLIC TOPICAL ×2 (08:06→21:29)
[2021-09-13 11:15] LABS: Bedside Glucose 181 mg/dL (70-110)
--- NOTE | 2021-09-13 16:15 | PN_ITS ---
Subjective Subjective Afebrile VSS - BP this afternoon is 193/96.......it was taken shortly after a coughing paroxysm. It has been good except for a mild increase in the systolic at times. diastolic is well controlled. It was rechecked in 15 minutes and it was 153/81. Orthostatics this a.m. were negative. Maintaining appropriate oxygen saturation on RA Oral intake is good He is having a bowel movement at least every other day. He is continent of stool but still incontinent of urine. Discussed with nursing - no problems that need addressed Reviewed the PT/OT/ST notes Medication list reviewed. Eric has no complaints today. He has been sleeping well the past 2 nights and left the AVAPS on all night. He is more alert and less fatigued. He required only minimal assistance today to go from sitting to standing. He was standby assist for stand pivot. He was able to get up from a low toilet with minimal assist x1. He ambulated 100 feet with a wheeled walker. He was ambulating off the unit on various surfaces at contact-guard assist. He has done 5 steps of various heights with 2 handrails at contact-guard assist. He is still having right side neglect and still requires voice cues for placement of his right upper extremity onto the walker. He is minimal assistance for bathing and standby assist for upper body dressing. Still requiring moderate assistance to dress his lower body had to pull up his garments after using the toilet. He is standby assist for toileting. Yesterday he had 90% accuracy with visually complex scanning tasks. He still lacks awareness of errors and has impaired attention/recall/memory. He had no aspiration on the MBS and so he was advanced to thin liquids. He has not been coughing with eating when the NA has been with him for meals for the past 3 days but, he is still having coughing paroxysms at times........even when he is not eating? He denies CP, SOB at rest. Exercise tolerance is improving and he is down to 1 LPM O2 while awake. The last BMP showed a normal serum bicarb. The blood sugar record was reviewed and he has a rare blood sugar over 200. No hypoglycemia in the past 2 days. Objective Data Objective Data Vital Signs: Vital Signs Temp Pulse Resp BP Pulse Ox 97.6 F L 89 19 H 193/96 H 94 02/23/22 07:01 09/13/21 09:18 09/13/21 07:01 09/13/21 16:01 09/13/21 07:44 Oxygen Flow Rate (L/min) 1 Oxygen Delivery Method Nasal Cannula Weight: 185 lb 10.067 oz Body Mass Index (BMI) 29.5 Intake & Output: Intake and Output for Last 24 Hours 09/11/21 09/12/21 09/13/21 23:59 23:59 23:59 Intake Total 1080 / 1080 1530 / 1530 1320 / 1320 Balance 1080 / 1080 1530 / 1530 1320 / 1320 Medical Nutrition Assessment Dietitian: Malnutrition Criteria Met Start: 09/04/21 17:12 Freq: Status: Active Protocol: Document 09/04/21 17:12 RMA (Rec: 09/04/21 17:12 RMA [id number]) Nutrition Malnutrition Evidence of Malnutrition Exists Yes Malnutrition (severe): Acute Illness/Injury Evidenced By Suboptimal Energy Intake ( Severe),Weight Loss (Severe) Clinical Problem Acute Disease or Injury Related Malnutrition Etiology Severe protein-calorie malnutrition in the context of acute illness related to swallowing difficulty/stroke Signs/Symptoms as evidenced by mechanically altered diet/thickened liquids , 5% wt loss x 1 week and PO at meals~50%/meeting less than 50% estimated nutrition needs Status Active Problem Recommendation Dietitian Recommendations/Changes Will adjust diet to 2000 calorie/consistent carbohydrate/cardiac with consistency as per TEXTILE PIN WORKER--- currently soft/bite-sized food and honey-thick liquids. Will add 120ml glucerna shake TID w/ medpass. Will add ensure pudding BID w/ lunch and dinner for tolerance. Will trend weight closely as PO established with meals. Lab / Micro Data Result Diagrams: 09/04/21 05:35 09/11/21 05:04 Labs: Laboratory Results - last 24 hr 09/12/21 16:16: POC Glucose 207 H 09/12/21 21:14: POC Glucose 139 H 09/13/21 06:24: POC Glucose 144 H 09/13/21 11:05: POC Glucose 181 H Physical Exam Const alert and oriented x3 Constitutional Narrative: appropriate, talkative HEENT HEENT Narrative: Mucous membranes are moist. Resp clear to auscultation bilaterally Cardio regular rate and regular rhythm GI normal to inspection, nondistended, normoactive bowel sounds, soft to palpation and non-tender Extremity no calf tenderness General Extremity: Negative for clubbing, cyanosis or edema Skin Skin Narrative: the lacerations of the R eyebrow area are healing well and the edges are well approximated. There is no purulent DC and no erythema. No visual disturbance. Rashes: no rashes Wounds: wounds noted Neuro Neuro Narrative: Still with R side neglect. Has to be cued to place his R hand on the WW when he is transferring and ambulating Psych cooperative Appearance: appropriate Mood & Affect: flat affect; Negative for anxious Assessment & Plan Assessment/Plan (1) Physical debility: (2) Occlusion of left internal carotid artery: (3) Occlusion of left middle cerebral artery: (4) Hemiparesis of right dominant side due to cerebral infarction: (5) COPD (chronic obstructive pulmonary disease): (6) Malnutrition: (7) Hypoxemia: (8) Sleep-disordered breathing: (9) Lung nodule seen on imaging study: (10) Uncontrolled type 2 diabetes mellitus: (11) Urinary incontinence: PLAN: Check 3 additional post void residuals Continue therapy Continue the same insulin regimen We discussed how to prevent another stroke with Eric today. I went over the goals for BP control and LDL. He says he no longer smokes. Even though he says he has not smoked for 20-30 years he was observed smoking at work up until he retired 3 years ago. He has COPD per PE and will need PFT's post DC. He will also need a overnight sleep study post DC. His stop bang score is 6 and he is at high risk for sleep apnea. He snores and he had an abnormal overnight trending pulse ox with the O2 sat in the 70's and 80's while sleeping on RA. He also retains CO2 and this is better on AVAPS. A sleep study has been arranged for him on 09/25/21 and then he will have an appt with Dr. Rodriguez. Will need to go home on O2. He will also need to follow up with Dr. Rodriguez for the lung nodule in the TODD. Charges/Coding Visit Charges Inpatient E&M: 79496 Subs Hosp L2
[2021-09-13 16:31] LABS: Bedside Glucose 139 mg/dL (70-110)
[2021-09-13] MEDS: Doxazosin 1 MG Tablet 2 MG PO (21:30)
[2021-09-13] MEDS: Senna/Docusate Sodium 1 Tablet 2 TABLET PO (21:31)
[2021-09-13 21:55] LABS: Bedside Glucose 133 mg/dL (70-110)
[2021-09-14] VITALS (7 sets, daily range): BP systolic 138–146; BP diastolic 62–77; PULSE 86–94; RESP 14–19; TEMP 36.2–36.9; O2SAT 90–95; BMI 29.5
[2021-09-14] MEDS: Enoxaparin 40 MG/0.4 ML Syringe SC (05:04)
[2021-09-14 06:36] LABS: Bedside Glucose 122 mg/dL (70-110)
[2021-09-14] MEDS: Insulin Lispro 100 UNIT/ML INSULN.PEN 12 UNIT SC ×3 (07:40→16:25)
[2021-09-14] MEDS: Aspirin 81 MG TAB.CHEW PO (07:40)
[2021-09-14] MEDS: Metoprolol Tartrate 25 MG Tablet PO ×2 (08:00→20:09)
[2021-09-14] MEDS: Empagliflozin 25 MG Tablet PO (08:00)
[2021-09-14] MEDS: NYSTATIN 500,000 UNIT/5 ML UDC 500000 UNIT PO ×4 (08:01→20:08)
[2021-09-14] MEDS: Senna/Docusate Sodium 1 Tablet 2 TABLET PO ×2 (08:01→20:08)
[2021-09-14] MEDS: Menthol/Lanolin/Calamine/Znox 113 GM Tube 1 APPLIC TOPICAL ×2 (08:05→20:09)
[2021-09-14] MEDS: Mupirocin Ointment 22gm Tube 1 APPLIC TOPICAL ×2 (08:06→20:10)
--- NOTE | 2021-09-14 10:39 | NURSING ---
pt ambulates with PT on 1L NC. pt's pulse ox stays between 94-98% at this time. while pt is recovering pts pulse ox is 92% on 1L NC. pt tolerates activity well.
[2021-09-14 11:36] LABS: Bedside Glucose 172 mg/dL (70-110)
--- NOTE | 2021-09-14 14:07 | NURSING ---
pt ambulates without oxygen and O2 saturation drops as low as 86% on Room air with exertion. pt recovers well and saturations come up to 90% after a few minutes of recovery time.
--- NOTE | 2021-09-14 15:01 | CASEMGMT ---
Social Work IDT met with patient and for Team meeting. Discussed patient's progress in PT/OT/ST and nursing. Pt making progress. Explained DC date per Medicare is 09/21. IDT making plans for pt to DC home, however, expressed some reservations about being able to care for him. She wants to be able to work some. Encouraged her to discuss intermittent FMLA with her employer's HR department. Dr. Lenz already completed the FMLA paperwork. Reiterated pt cannot be left home alone. Offered therapy training with - agreed and will complete 09/15. Asked to contact this worker with decision of home vs SNF. And if home does she want HHC or outpatient therapy. Provided HHC list and SNF list. appreciative. SW to continue to follow. VALERY LandaverdeW
[2021-09-14 16:31] LABS: Bedside Glucose 188 mg/dL (70-110)
[2021-09-14] MEDS: Doxazosin 1 MG Tablet 2 MG PO (20:09)
[2021-09-14 21:01] LABS: Bedside Glucose 162 mg/dL (70-110)
[2021-09-15] VITALS (8 sets, daily range): BP systolic 112–141; BP diastolic 64–87; PULSE 74–91; RESP 14–19; TEMP 36.5–36.7; O2SAT 92–97; BMI 29.5
[2021-09-15] MEDS: Enoxaparin 40 MG/0.4 ML Syringe SC (05:49)
[2021-09-15 06:21] LABS: Bedside Glucose 137 mg/dL (70-110)
[2021-09-15] MEDS: Mupirocin Ointment 22gm Tube 1 APPLIC TOPICAL (07:36)
[2021-09-15] MEDS: Menthol/Lanolin/Calamine/Znox 113 GM Tube 1 APPLIC TOPICAL ×2 (07:36→21:44)
[2021-09-15] MEDS: Insulin Lispro 100 UNIT/ML INSULN.PEN 12 UNIT SC ×3 (07:37→16:44)
[2021-09-15] MEDS: Metoprolol Tartrate 25 MG Tablet PO (07:38)
[2021-09-15] MEDS: Empagliflozin 25 MG Tablet PO (07:38)
[2021-09-15] MEDS: Aspirin 81 MG TAB.CHEW PO (07:38)
[2021-09-15] MEDS: NYSTATIN 500,000 UNIT/5 ML UDC 500000 UNIT PO ×4 (10:00→21:21)
--- NOTE | 2021-09-15 10:05 | PCM.PROGNOTE ---
Subjective Subjective Afebrile VSS - He is orthostatic today. The blood pressure lying down was 136/67 with a heart rate of 87. The blood pressure standing up was 112/65 with a heart rate of 80. He denies lightheadedness. Maintaining appropriate oxygen saturation on RA while resting but, he was ambulated on RA and a pulse ox was checked and it ranged from 82-86%. He will need oxygen at DC. Oral intake is good Discussed with nursing - no problems that need addressed Reviewed the PT/OT/ST notes Medication list reviewed. Eric was seen on TEAM rounds yesterday and his was present in the room for rounds. Nell will be coming in today for family training. I get the feeling she is not wanting him to come home yet because she is not sure she will provide him enough assistance. Eric is adamant he is going home from rehab and not going to an SNF. He has been doing better since he is consistently wearing the AVAPS all night now. Blood sugar record was reviewed. Blood sugars are under good control with only one blood sugar above 200 since admission to rehab. 2 recent PVR's are under 200. Remains incontinent of urine. Occasionally incontinent of stool. Post void residuals are less than 200. Orthostatic Hypotension resolved with adjusting antihypertensives and decreasing the Cardura to 2 mg at night. Objective Data Objective Data Vital Signs: Vital Signs Temp Pulse Resp BP Pulse Ox 97.7 F L 87 16 136/67 H 97 09/15/21 07:12 09/15/21 09:00 09/15/21 07:12 09/15/21 09:00 09/15/21 07:12 Oxygen Flow Rate (L/min) 1 Oxygen Delivery Method Room Air Weight: 185 lb 10.067 oz Body Mass Index (BMI) 29.5 Intake & Output: Intake and Output for Last 24 Hours 09/13/21 09/14/21 09/15/21 23:59 23:59 23:59 Intake Total 1780 / 1780 1300 / 1300 240 / 240 Output Total 150 / 150 Balance 1780 / 1780 1150 / 1150 240 / 240 Medical Nutrition Assessment Dietitian: Malnutrition Criteria Met Start: 09/04/21 17:12 Freq: Status: Active Protocol: Document 09/04/21 17:12 RMA (Rec: 09/04/21 17:12 RMA [id number]) Nutrition Malnutrition Evidence of Malnutrition Exists Yes Malnutrition (severe): Acute Illness/Injury Evidenced By Suboptimal Energy Intake ( Severe),Weight Loss (Severe) Clinical Problem Acute Disease or Injury Related Malnutrition Etiology Severe protein-calorie malnutrition in the context of acute illness related to swallowing difficulty/stroke Signs/Symptoms as evidenced by mechanically altered diet/thickened liquids , 5% wt loss x 1 week and PO at meals~50%/meeting less than 50% estimated nutrition needs Status Active Problem Recommendation Dietitian Recommendations/Changes Will adjust diet to 2000 calorie/consistent carbohydrate/cardiac with consistency as per SWITCHBOARD AND CONTROL ROOM OPERATOR--- currently soft/bite-sized food and honey-thick liquids. Will add 120ml glucerna shake TID w/ medpass. Will add ensure pudding BID w/ lunch and dinner for tolerance. Will trend weight closely as PO established with meals. Lab / Micro Data Result Diagrams: 09/04/21 05:35 09/11/21 05:04 Labs: Laboratory Results - last 24 hr 09/14/21 11:11: POC Glucose 172 H 09/14/21 16:25: POC Glucose 188 H 09/14/21 20:51: POC Glucose 162 H 09/15/21 06:09: POC Glucose 137 H Physical Exam Const alert, oriented x3 and no apparent distress Resp clear to auscultation bilaterally Auscultation: diminished lung sounds Cardio regular rate, regular rhythm and no gallops GI normal to inspection, nondistended, normoactive bowel sounds, soft to palpation and non-tender Extremity no calf tenderness and no pedal edema Assessment & Plan Assessment/Plan (1) Occlusion of left middle cerebral artery: (2) Orthostatic hypotension: PLAN: 1. Decrease the Metoprolol to 12.5 mg BID. The HR is not increasing with change in position to offset the falling BP. Recheck the orthostatics Saturday and Saturday. Will order PRN Hydralazine for BP > 1790/90. 2. Continue therapy 3. Need to have further discussion on disposition at [place]. Charges/Coding Visit Charges Inpatient E&M: 92136 Subs Hosp L2
[2021-09-15 11:05] LABS: Bedside Glucose 178 mg/dL (70-110)
--- NOTE | 2021-09-15 15:37 | CASEMGMT ---
Social Work Followed up with from therapy training today. still wavering on DC home or SNF for more therapy. She expressed concern with him not being compliant at home and giving her a hard time, not following what he is supposed to be doing. She inquired about TCU. Explained pt's Medicare will cover SNF stay up to 100 days and will refer to TCU. would like to discuss further with her son. Referred to TCU. They can accept. Updated . She is leaning toward that option. Pt would need to agree as well. to update this worker Saturday. SW to continue to follow. Susy Ha, MANAGER BENEFIT BILINGUAL TRAINER
[2021-09-15 16:16] LABS: Bedside Glucose 139 mg/dL (70-110)
[2021-09-15] MEDS: Senna/Docusate Sodium 1 Tablet 2 TABLET PO (21:21)
[2021-09-15] MEDS: Metoprolol Tartrate 25 MG Tablet 12.5 MG PO (21:21)
[2021-09-15] MEDS: Doxazosin 1 MG Tablet 2 MG PO (21:22)
[2021-09-15 21:26] LABS: Bedside Glucose 159 mg/dL (70-110)
[2021-09-16 02:55] VITALS: PULSE 73; RESP 14; O2SAT 94
[2021-09-16] MEDS: Enoxaparin 40 MG/0.4 ML Syringe SC (05:13)
[2021-09-16 06:51] LABS: Bedside Glucose 130 mg/dL (70-110)
[2021-09-16] MEDS: Insulin Lispro 100 UNIT/ML INSULN.PEN 12 UNIT SC ×3 (07:56→17:27)
[2021-09-16 07:57] VITALS: PULSE 70
[2021-09-16] MEDS: Metoprolol Tartrate 25 MG Tablet 12.5 MG PO ×2 (07:57→21:30)
[2021-09-16] MEDS: Empagliflozin 25 MG Tablet PO (07:57)
[2021-09-16] MEDS: Aspirin 81 MG TAB.CHEW PO (07:58)
[2021-09-16] MEDS: NYSTATIN 500,000 UNIT/5 ML UDC 500000 UNIT PO ×4 (08:00→21:30)
[2021-09-16] MEDS: Menthol/Lanolin/Calamine/Znox 113 GM Tube 1 APPLIC TOPICAL ×2 (08:04→21:32)
[2021-09-16 08:30] VITALS: BP 138/72; PULSE 87; RESP 16; TEMP 36.5; O2SAT 95
[2021-09-16 11:46] LABS: Bedside Glucose 205 mg/dL (70-110)
[2021-09-16 15:58] VITALS: BMI 29.5
[2021-09-16 17:01] LABS: Bedside Glucose 157 mg/dL (70-110)
[2021-09-16 19:24] VITALS: BP 147/73; PULSE 90; RESP 16; TEMP 36.6; O2SAT 98
[2021-09-16 21:30] VITALS: BP 147/73; PULSE 90
[2021-09-16] MEDS: Senna/Docusate Sodium 1 Tablet 2 TABLET PO (21:30)
[2021-09-16] MEDS: Doxazosin 1 MG Tablet 2 MG PO (21:31)
[2021-09-16 22:00] LABS: Bedside Glucose 129 mg/dL (70-110)
[2021-09-16 22:07] VITALS: PULSE 75; RESP 14; O2SAT 96
[2021-09-17] VITALS (7 sets, daily range): BP systolic 126–132; BP diastolic 67–75; PULSE 71–90; RESP 14–17; TEMP 36.1–36.6; O2SAT 92–94; BMI 29.5
[2021-09-17] MEDS: Enoxaparin 40 MG/0.4 ML Syringe SC (05:26)
[2021-09-17 06:46] LABS: Bedside Glucose 123 mg/dL (70-110)
[2021-09-17] MEDS: Empagliflozin 25 MG Tablet PO (07:58)
[2021-09-17] MEDS: Menthol/Lanolin/Calamine/Znox 113 GM Tube 1 APPLIC TOPICAL ×2 (07:58→19:57)
[2021-09-17] MEDS: Aspirin 81 MG TAB.CHEW PO (07:58)
[2021-09-17] MEDS: NYSTATIN 500,000 UNIT/5 ML UDC 500000 UNIT PO ×3 (07:58→19:55)
[2021-09-17] MEDS: Metoprolol Tartrate 25 MG Tablet 12.5 MG PO ×2 (07:59→19:55)
[2021-09-17] MEDS: Insulin Lispro 100 UNIT/ML INSULN.PEN 12 UNIT SC ×3 (08:03→17:13)
[2021-09-17 11:50] LABS: Bedside Glucose 123 mg/dL (70-110)
[2021-09-17 17:21] LABS: Bedside Glucose 131 mg/dL (70-110)
[2021-09-17] MEDS: Senna/Docusate Sodium 1 Tablet 2 TABLET PO (19:55)
[2021-09-17] MEDS: Doxazosin 1 MG Tablet 2 MG PO (19:57)
[2021-09-17 22:11] LABS: Bedside Glucose 155 mg/dL (70-110)
[2021-09-18] VITALS (8 sets, daily range): BP systolic 125–144; BP diastolic 62–71; PULSE 67–95; RESP 14–19; TEMP 36.6–36.8; O2SAT 93–97; BMI 29.5
[2021-09-18] MEDS: Enoxaparin 40 MG/0.4 ML Syringe SC (06:51)
[2021-09-18 07:06] LABS: Bedside Glucose 145 mg/dL (70-110)
[2021-09-18] MEDS: Insulin Lispro 100 UNIT/ML INSULN.PEN 12 UNIT SC ×3 (07:44→17:06)
[2021-09-18] MEDS: Aspirin 81 MG TAB.CHEW PO (07:45)
[2021-09-18] MEDS: Metoprolol Tartrate 25 MG Tablet 12.5 MG PO ×2 (07:45→20:29)
[2021-09-18] MEDS: NYSTATIN 500,000 UNIT/5 ML UDC 500000 UNIT PO ×4 (07:46→20:31)
[2021-09-18] MEDS: Senna/Docusate Sodium 1 Tablet 2 TABLET PO ×2 (07:46→20:29)
[2021-09-18] MEDS: Menthol/Lanolin/Calamine/Znox 113 GM Tube 1 APPLIC TOPICAL ×2 (07:46→20:39)
[2021-09-18] MEDS: Empagliflozin 25 MG Tablet PO (07:53)
--- NOTE | 2021-09-18 09:41 | CASEMGMT ---
Addendum entered by Susy Ha 09/18/21 16:26: Spoke with [facility] nurse and pt's home medications have changed - pt is no longer on the expensive [facility] med. Spoke with chacha Alcant[facility] - agreeable to take on TCU. Updated . Plan remains TCU skilled 09/21. Addendum entered by Susy Ha 09/18/21 15:44: Received update from [facility] TCU, pt is on expensive diabetic medication and he is unable to bring that in from home; thus, TCU can no longer accept pt. Contacted and updated her. Cautioned this may be the case for other SNFs as well. Encouraged to think about DC plan and notify this worker sergio to determine DC destination for 09/21. expressed understanding. Original Note: Social Work Followed up with on DC plans. and family have chosen TCU. Updated TCU and IDT. Plan: DC 09/21 TCU skilled VALERY Landaverde
[2021-09-18 11:50] LABS: Bedside Glucose 188 mg/dL (70-110)
[2021-09-18 16:56] LABS: Bedside Glucose 150 mg/dL (70-110)
--- NOTE | 2021-09-18 18:54 | PCM.PROGNOTE ---
Subjective Subjective Afebrile VSS-blood pressure is controlled. Heart rate is within normal limits. Maintaining appropriate oxygen saturation on RA -94%. He did not desaturate with exercise today. Oral intake is Good Discussed with nursing - no problems that need addressed. Nursing reports that he has been continent of urine today. Reviewed the PT/OT/ST notes Medication list reviewed. The blood sugar record was reviewed and all blood sugars are less than 200. He denies chest pain, shortness of breath, palpitations, lightheadedness, dysuria, nausea/vomiting/abdominal pain, sore throat, cough. He still maintains that he is not going to go to an SNF at [facility] and he is going home. His son talked to him over the weekend and his has been talking with him. I talked to him and told him that even though he has improved significantly he is not quite ready to go home and he would benefit from going to TCU for continuity.....he will have some of the same therapists. I told him he would not get therapy more than 2-3 times a week at home and I do not think this is adequate at this moment. He is stubborn and does not listen to his /family and thinks that his would be able to care for him. She does not think he is ready at this point and after having family training she does not think she can do it. He is still having coughing paroxysms when eating and sometimes just from his mouth secretions. Objective Data Objective Data Vital Signs: Vital Signs Temp Pulse Resp BP Pulse Ox 97.8 F 83 16 144/70 H 94 09/18/21 07:27 09/18/21 07:45 09/18/21 07:27 09/18/21 07:27 09/18/21 10:50 Oxygen Flow Rate (L/min) 1 Oxygen Delivery Method Room Air Weight: 190 lb 0.009 oz Body Mass Index (BMI) 29.5 Intake & Output: Intake and Output for Last 24 Hours 09/16/21 09/17/21 09/18/21 23:59 23:59 23:59 Intake Total 2140 / 2140 1330 / 1330 940 / 940 Output Total 402 / 402 Balance 1738 / 1738 1330 / 1330 940 / 940 Medical Nutrition Assessment Dietitian: Malnutrition Criteria Met Start: 09/04/21 17:12 Freq: Status: Active Protocol: Document 09/18/21 11:23 RMA (Rec: 09/18/21 11:23 RMA [id number]) Nutrition Malnutrition Evidence of Malnutrition Exists Yes Malnutrition (severe): Acute Illness/Injury Evidenced By Suboptimal Energy Intake ( Severe),Weight Loss (Severe) Clinical Problem Acute Disease or Injury Related Malnutrition Etiology Severe protein-calorie malnutrition in the context of acute illness related to swallowing difficulty/stroke Signs/Symptoms as evidenced by mechanically altered diet/thickened liquids , 5% wt loss x 1 week and PO at meals~50%/meeting less than 50% estimated nutrition needs Status Resolved Problem Recommendation Dietitian Recommendations/Changes Continue 1999 calorie/ consistent carbohydrate/ cardiac with consistency as per STUDIO DIRECTOR---currently soft/bite- sized food w/ thin liquids. Trend weight closely and encourage adequate intake at meals; ONS as needed if PO/wt decline--not indicated at this time. Lab / Micro Data Result Diagrams: 09/04/21 05:35 09/11/21 05:04 Labs: Laboratory Results - last 24 hr 09/17/21 21:45: POC Glucose 155 H 09/18/21 06:54: POC Glucose 145 H 09/18/21 11:44: POC Glucose 188 H 09/18/21 16:48: POC Glucose 150 H Physical Exam Const alert, oriented x3 and no apparent distress Constitutional Narrative: Lying in bed when I entered the room watching TV. General Appearance: cooperative and comfortable Eyes conjunctivae normal and no scleral icterus Resp no use of accessory muscles Resp Narrative: decreased air entry throughout. No pursed lip breathing. Has been wearing the AVAPS every night and has not been taking it off. He is angry that his wants him to go somewhere at [facility] and not home. He is very cooperative with therapy. Effort and Inspection: able to speak in complete sentences and symmetric chest movement; Negative for tachypneic Auscultation: Negative for rales, rhonchi, wheezes or egophony Cardio regular rate, regular rhythm and no gallops Cardio Narrative: .No ectopy GI normal to inspection, nondistended, normoactive bowel sounds, soft to palpation and non-tender GI Narrative: No guarding with palpation Extremity no calf tenderness and no pedal edema Skin General Skin Exam: no breakdown Rashes: no rashes Neuro Neuro Narrative: He is progressing in therapy. He can now do sit to stands from various surfaces. He ambulated 245 feet with a front wheeled walker at standby assist yesterday with good henny speed and step through gait. He ambulated 163 feet at contact-guard assist with a straight cane. Pulse ox ranged from 94 to 95% yesterday with activity throughout the physical therapy session. R side neglect is improving and he is not requiring as much voice cuing to keep the R hand on the WW and the handrails when doing steps. He lacks insight to his deficits and has poor safety awareness. Psych cooperative Activity / Motor Behavior: appropriate eye contact Mood & Affect: irritable Attention / Concentration: other concentration and attention are still lacking for any sustained length of time with the ST. Memory / Cognition: cognition impaired Insight: limited Judgement: limited Assessment & Plan Assessment/Plan (1) Alan-neglect of right side: (2) Urinary incontinence: (3) COPD (chronic obstructive pulmonary disease): (4) Malnutrition: (5) Sleep-disordered breathing: (6) Occlusion of left middle cerebral artery: (7) Occlusion of left internal carotid artery: (8) Lung nodule seen on imaging study: (9) Left middle cerebral artery stroke: (10) Physical debility: (11) Hemiparesis of right dominant side due to cerebral infarction: (12) Dysphagia as late effect of stroke: PLAN: He is sleeping well and eating well and has been compliant with therapy. I do not really think he is depressed but, he is irritable and wants to do what he wants without regard to the possible adverse outcomes of going home, conner with a who does not feel safe having him there. He tells me he will not go to TCU or any other SNF....he is going home. He was continent of stool and urine all day today and he is working hard to get as far as he can in Therapy prior to his DC date of 09/21/21. I think physically he is doing well and could do OK at home. I get the sense that he has always done what he wants with no regard to what others(like his ) may want and think best. I suspect she is afraid he will not listen to her giving him cues and telling him what to do and he will have a bad outcome. Continue therapy. Will speak to their son Jose Manuel when he is available and discuss the situation with him. Will also discuss with the SW. Charges/Coding Visit Charges Inpatient E&M: 05093 Subs Hosp L2
[2021-09-18] MEDS: Doxazosin 1 MG Tablet 2 MG PO (20:29)
[2021-09-18 21:06] LABS: Bedside Glucose 90 mg/dL (70-110)
[2021-09-19] VITALS (8 sets, daily range): BP systolic 122–151; BP diastolic 59–77; PULSE 68–84; RESP 14–18; TEMP 36.7–36.9; O2SAT 94–97; BMI 29.5
[2021-09-19] MEDS: Enoxaparin 40 MG/0.4 ML Syringe SC (05:58)
[2021-09-19 06:41] LABS: Bedside Glucose 132 mg/dL (70-110)
[2021-09-19] MEDS: Metoprolol Tartrate 25 MG Tablet 12.5 MG PO ×2 (07:35→21:32)
[2021-09-19] MEDS: Empagliflozin 25 MG Tablet PO (07:35)
[2021-09-19] MEDS: Aspirin 81 MG TAB.CHEW PO (07:36)
[2021-09-19] MEDS: Senna/Docusate Sodium 1 Tablet 2 TABLET PO ×2 (07:36→21:32)
[2021-09-19] MEDS: Insulin Lispro 100 UNIT/ML INSULN.PEN 12 UNIT SC ×3 (07:39→17:12)
[2021-09-19] MEDS: Menthol/Lanolin/Calamine/Znox 113 GM Tube 1 APPLIC TOPICAL ×2 (07:39→21:33)
--- NOTE | 2021-09-19 08:50 | CASEMGMT ---
Addendum entered by Susy Ha 09/20/21 14:41: contacted this worker and pt is discharging home. Provided her with resources for handrails and grab bars to install at home. requesting HHC through [facility]. Pt also needs FWW and night O2. Referred to [facility]. to transport. Plan: DC home with 3/3, [facility] HHC PT/OT/ST/SN, night O2 and FWW Addendum entered by Susy Ha 09/19/21 16:29: Followed up with the and she wants the son to talk to the Dr before making a decision. wants him at TCU but pt does not want TCU. to call SW with decision tomorrow morning. Addendum entered by Susy Ha 09/19/21 15:39: attended stroke support group and asking SW questions about HHC and outpatient therapy. Explained both and insurance coverage. Advised for to discuss pt's wishes further with DC as he told Dr. this morning he does not want to go to TCU. to speak with pt after group meeting and notify this worker of outcome as DC is 3/3. SW to continue to follow. Original Note: Social Work SW noted pt does not have COVID vaccinations in chart. Contacted to inquire. Pt does have all 3 vaccines. Requested provide copy of vaccination card as TCU will need that on file for pt not to be in quarantine. to provide. VALERY Landaverde
--- NOTE | 2021-09-19 10:30 | PCM.PROGNOTE ---
Subjective Subjective Afebrile VSS-systolic is sometimes mildly elevated but the diastolic is always within goal. The heart rate now increases appropriately when going from lying down to standing since the beta-dustin has been decreased to 12.5 mg twice daily. The systolic dropped 14 mm HG today when going from lying to standing. He is asymptomatic now. Maintaining appropriate oxygen saturation on RA with activity now so he will only need the oxygen at night at [place]. Sleep study has been scheduled for the and he will follow up with Dr. Rodriguez for sleep apnea and to interpret the sleep study Oral intake is good Discussed with nursing - no problems that need addressed Reviewed the PT/OT/ST notes - he is making good progress. Medication list reviewed. He is on Crestor and ASA 81 mg daily. He is also on Metoprolol 12.5 mg BID and doxazosin 2 mg at at bedtime for BPH. The blood sugar record was reviewed and the blood sugars are under good control with no hypoglycemia. Eric has no complaints today. He denies sore throat, cough, shortness of breath, chest pain, palpitations, nausea/vomiting, early satiety, dysuria, abdominal pain, and calf pain. He is excited he will be going home on ......still maintains that he is not going to an SNF. Alert and oriented X 3, appropriate, cooperative MM are moist Lungs - CTA but diminished throughout H-RRR, distant heart sounds, increased AP diameter of chest, no gallop and no ectopy Abd - soft, NT, ND, normal BS's, having regular BM's no peripheral edema and no calf pain no rashes and no skin breakdown Impressions 1. post stroke debility 2. persistent R side neglect - needs voice cuing to place the R hand on the WW and the handrails, also needs cuing to put his R arm in the sleeve when dressing and wipe his the shaving cream off his R hand after shaving. He does well when cued. 3. dysphagia is getting better and he is coughing much less when eating and drinking......I rarely hear him coughing now. 4. DM II - well controlled. will need to check the insulin dose and allow him to give it. She will also need to learn how to administer insulin if he is not able. will have the nurses allow Eric to give his own insulin shot. 5. Orthostatic hypotension - much improved with decreasing the dose of the Metoprolol and the Cardura 6. 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 lung nodule - TODD.....needs a follow up CT of the chest or and MRI in 3 months. 8. hx of tobacco dependence - he maintains that he quit smoking 20-30 years ago but he was observed smoking at work 3 years ago prior to retiring. 9. Sleep disordered breathing - overnight sleep study scheduled for 09/25/21 and then follow up with Dr. Rodriguez. 10. COPD suspected - Dr. Rodriguez will arrange for PFT's but, the # 1 priority now is the sleep disordered breathing.......associated with CO2 retention/resp acidosis with metabolic alkalosis I have spoken with ST, OT and PT and they all feel that Eric can DC home but, he still needs cuing. They are going to have him practise getting up of the floor prior to DC. plan for HHC initially. I spoke with his Nell today and gave her my cell number to give to her to call me at his convenience. Eric is not incompetent and I can not force him to go to an SNF. Nell's big concern is that he will not listen to her and will do what he wants. I alerted the SW that he will be going home . Objective Data Objective Data Vital Signs: Vital Signs Temp Pulse Resp BP Pulse Ox 98.0 F 83 17 151/77 H 97 09/19/21 08:02 09/19/21 08:02 09/19/21 08:02 09/19/21 08:02 09/19/21 08:02 Oxygen Flow Rate (L/min) 1 Oxygen Delivery Method Room Air Weight: 190 lb 0.009 oz Body Mass Index (BMI) 29.5 Intake & Output: Intake and Output for Last 24 Hours 09/17/21 09/18/21 09/19/21 23:59 23:59 23:59 Intake Total 1330 / 1330 1180 / 1180 480 / 480 Balance 1330 / 1330 1180 / 1180 480 / 480 Medical Nutrition Assessment Dietitian: Malnutrition Criteria Met Start: 09/04/21 17:12 Freq: Status: Active Protocol: Document 09/18/21 11:23 RMA (Rec: 09/18/21 11:23 RMA [id number]) Nutrition Malnutrition Evidence of Malnutrition Exists Yes Malnutrition (severe): Acute Illness/Injury Evidenced By Suboptimal Energy Intake ( Severe),Weight Loss (Severe) Clinical Problem Acute Disease or Injury Related Malnutrition Etiology Severe protein-calorie malnutrition in the context of acute illness related to swallowing difficulty/stroke Signs/Symptoms as evidenced by mechanically altered diet/thickened liquids , 5% wt loss x 1 week and PO at meals~50%/meeting less than 50% estimated nutrition needs Status Resolved Problem Recommendation Dietitian Recommendations/Changes Continue 1999 calorie/ consistent carbohydrate/ cardiac with consistency as per PING PONG TABLE ASSEMBLER---currently soft/bite- sized food w/ thin liquids. Trend weight closely and encourage adequate intake at meals; ONS as needed if PO/wt decline--not indicated at this time. Lab / Micro Data Result Diagrams: 09/04/21 05:35 09/11/21 05:04 Labs: Laboratory Results - last 24 hr 09/18/21 11:44: POC Glucose 188 H 09/18/21 16:48: POC Glucose 150 H 09/18/21 21:03: POC Glucose 90 09/19/21 06:00: POC Glucose 132 H Charges/Coding Visit Charges Inpatient E&M: 69752 Subs Hosp L2
[2021-09-19 11:06] LABS: Bedside Glucose 219 mg/dL (70-110)
[2021-09-19] MEDS: NYSTATIN 500,000 UNIT/5 ML UDC 500000 UNIT PO ×3 (11:13→21:32)
[2021-09-19 16:26] LABS: Bedside Glucose 132 mg/dL (70-110)
[2021-09-19] MEDS: Doxazosin 1 MG Tablet 2 MG PO (21:33)
[2021-09-19 22:01] LABS: Bedside Glucose 90 mg/dL (70-110)
[2021-09-20] MEDS: Enoxaparin 40 MG/0.4 ML Syringe SC (05:11)
[2021-09-20 05:52] LABS: Anion Gap 5 (5-15); BUN 12 mg/dL (7-18); BUN/Creat Ratio 13.7 RATIO (10-20); Calcium,Total 9.3 mg/dL (8.5-10.1); Chloride 105 mmol/L (98-107); Creatinine, Serum 0.88 mg/dL (0.70-1.30); EST Glomerular Filtration Rate 92 mL/min (>60); Est Glom Filt Rate - Afr Amer 111 mL/min (>60); Estimated Creatinine Clearance 80.34 ml/min; Glucose 118 mg/dL (74-106); Potassium 4.1 mmol/L (3.5-5.1); Sodium Level 141 mmol/L (136-145)
[2021-09-20 07:05] LABS: Bedside Glucose 119 mg/dL (70-110)
[2021-09-20 07:35] VITALS: BP 154/76; PULSE 90; RESP 16; TEMP 36.6; O2SAT 95
[2021-09-20 08:09] VITALS: O2SAT 96
[2021-09-20 08:11] VITALS: PULSE 90
[2021-09-20] MEDS: Aspirin 81 MG TAB.CHEW PO (08:11)
[2021-09-20] MEDS: Insulin Lispro 100 UNIT/ML INSULN.PEN 12 UNIT SC ×3 (08:11→17:14)
[2021-09-20] MEDS: Empagliflozin 25 MG Tablet PO (08:11)
[2021-09-20] MEDS: Metoprolol Tartrate 25 MG Tablet 12.5 MG PO ×2 (08:11→21:32)
[2021-09-20] MEDS: NYSTATIN 500,000 UNIT/5 ML UDC 500000 UNIT PO ×4 (08:11→21:32)
[2021-09-20] MEDS: Menthol/Lanolin/Calamine/Znox 113 GM Tube 1 APPLIC TOPICAL ×2 (08:14→21:33)
[2021-09-20 11:11] LABS: Bedside Glucose 111 mg/dL (74-106)
--- NOTE | 2021-09-20 15:58 | SLEEP ---
Spoke with Nell-, by phone about pt's sleep study for 09/28/21. (1st available at this time). She IS aware that a double end production grinder has to stay with him for this testing and study will need to be R/S if someone cannot be here. At this time, she is agreeable. Information regarding sleep study arrival and procedure left in patient's room for his d/c home tomorrow.
[2021-09-20 16:20] LABS: Bedside Glucose 160 mg/dL (74-106)
[2021-09-20 17:00] VITALS: BMI 29.5
[2021-09-20 21:30] VITALS: BMI 29.5
[2021-09-20 21:31] LABS: Bedside Glucose 94 mg/dL (74-106)
[2021-09-20 21:32] VITALS: PULSE 72
[2021-09-20] MEDS: Doxazosin 1 MG Tablet 2 MG PO (21:32)
[2021-09-20 22:00] VITALS: BP 125/62; PULSE 75; PULSE 85; RESP 18; TEMP 36.6; O2SAT 100
[2021-09-21 00:25] VITALS: PULSE 70; RESP 14; RESP 18; O2SAT 96
[2021-09-21] MEDS: Enoxaparin 40 MG/0.4 ML Syringe SC (06:10)
[2021-09-21] MEDS: Acetaminophen 325 MG Tablet 650 MG PO (06:20)
[2021-09-21 06:26] LABS: Bedside Glucose 129 mg/dL (74-106)
[2021-09-21 07:42] VITALS: BP 135/71; PULSE 85; RESP 17; TEMP 36.6; O2SAT 94
[2021-09-21 07:55] VITALS: PULSE 85
[2021-09-21] MEDS: Metoprolol Tartrate 25 MG Tablet 12.5 MG PO (07:55)
[2021-09-21] MEDS: Menthol/Lanolin/Calamine/Znox 113 GM Tube 1 APPLIC TOPICAL (07:55)
[2021-09-21] MEDS: Empagliflozin 25 MG Tablet PO (07:57)
[2021-09-21] MEDS: NYSTATIN 500,000 UNIT/5 ML UDC 500000 UNIT PO ×2 (07:58→12:54)
[2021-09-21] MEDS: Aspirin 81 MG TAB.CHEW PO (07:58)
[2021-09-21] MEDS: Insulin Lispro 100 UNIT/ML INSULN.PEN 12 UNIT SC ×2 (07:58→12:10)
--- NOTE | 2021-09-21 10:08 | DCINST_ITS ---
Discharge Instructions Diet Discharge Diet: 1999 Calorie Control Diet and - (consistent carbohydrate, low salt) Activity Discharge Activity: May Not Drive, Use Walker and - (OK to use a cane in the house. I recommend you use the walker if you are out of the house in the [facility]. ) Weight Bearing Status: Full weight bearing Lifting Restrictions: No more than 5 lbs. Lifting and carrying will throw off your balance. Dressing / Incision Call your doctor if you observe: Fever of 101 or Higher, Inability to urinate, Shortness of breath, Dizziness (Feeling lightheaded or having the room spin. ), Fainting spells, Swelling in the ankles, Chest pain, Increased palpitations (irregular heartbeat) (Rapid irregular heartbeat. ), Calf discomfort and - (ANY new stroke symptoms. Problems with balance, loss of vision, increased facial droop, increased weakness on 1 side and not the other, slurred speech or inability to get words out, numbness on one side and not the other. ) Follow Up Care Please Follow Up With: Toney Nicole MD Test Results: Test results from this visit will be discussed in further detail at your follow-up appointment, if applicable. Pending Tests Upon Discharge: none Discharge Plan Admission Admit Date/Time: 09/03/21 18:00 Primary Reason for Your Visit: Post stroke debility Attending Provider: Zoë Lenz Primary Care Provider: Toney Nicole Consulting Providers: Mat Rodriguez Instructions Patient Instructions: Discharge Instructions: COPD, Discharge Instructions for Stroke Additional Instructions / Restrictions: 1. You have sleep disordered breathing. this means that when you fall asleep you stop breathing. When this happens the oxygen in the blood drops and the carbon dioxide level goes up in you. The increase in the carbon dioxide cause a headache sometimes and makes you confused. The low oxygen can cause an abnormal rhythm of the heart called atrial fibrillation and this is a frequent cause of stroke. You were very confused and did not do well with therapy until you started wearing the mask all night. Soon after you started on the mask you were much more alert and you started to progress in therapy because your cognition and ability to follow instructions improved significantly with the mask. We can not order a breathing machine for you until you have a formal sleep study and then follow up with Dr. Rodirguez who will order a machine for you. The sleep study has been scheduled. Until you get a breathing machine you should wear the oxygen ANYTIME you are sleeping.......even for naps. 2. I have ordered a 30 day event monitor for you. I suspect you may be having intermittent atrial fibrillation when you are sleeping and if so then we need to get you on an anticoagulant to prevent another stroke. You would be at very high risk for another stroke if you are having atrial fibrillation (also called AFIB). You will wear the monitor for 30 days and then the paperhanger will look at the results. 3. The risk factors for stroke are being a man over the age of 50, having diabetes, smoking, high blood pressure, high cholesterol, family history of strokes or heart attacks, atrial fibrillation. You BP is well controlled and your blood sugars have been very good in rehab. You have quit smoking. Your cholesterol is good. If you get the sleep apnea treated and you keep your HGBA1C under 7 and your BP < 130/80 and your LDL (bad cholesterol) less than 70 and you do not smoke then you will really decrease your risk of having another s troke. The work does not stop when you leave rehab. You will be getting therapy at home and do your best to stay active even when the therapists are not at your house. Stay healthy in mind and body. You have a lot to live for so remember your goals and take good care of yourself. 4. In addition to having sleep apnea you also most likely have COPD. You will need to have pulmonary function tests to prove this but, there may be some inhalers that improve your breathing with exercise. Dr. Rodriguez will talk to you about this. 5. You had a CT scan of the chest at [facility] and it showed a nodule in the left llung in the upper lobe. This may just be a scar BUT, you need to have another CT of the chest in 3 months to make sure the nodule is not growing. Either Dr. Nicole or Dr. Rodriguez can order this and follow up on the results. 6. Your BP was dropping low when you went from sitting to standing and we had to change the doses of some of your medications. Take only what is listed on the discharge instructions when you get home. 7. It has been a pleasure to meet you Eric and to help you recover from the stroke. If you, Nell or Jose Manuel have any questions after you leave rehab please do not hesitate to call me. OFFICE: [phone] CELL: [phone] Discharge Orders/Prescriptions Prescriptions: New doxazosin 1 mg Tablet 2 mg PO QHS Qty: 30 RF: 0 aspirin 81 mg Tablet,Chewable 81 mg PO BREAKFAST Qty: 0 RF: 0 Jardiance 25 mg Tablet 25 mg PO DAILY Qty: 30 RF: 0 Lantus Solostar U-100 Insulin 100 unit/mL (3 mL) Insulin Pen 24 unit subcut DINNER 30 Days Qty: 7.2 RF: 0 insulin lispro [Humalog KwikPen Insulin] 100 unit/mL Insulin Pen 12 unit subcut TIDAC 30 Days Qty: 10.8 RF: 0 rosuvastatin 10 mg Tablet 10 mg PO QHS Qty: 30 RF: 0 metoprolol tartrate 25 mg Tablet 12.5 mg PO BID Qty: 30 RF: 0 Referrals / Follow Up: Sleep Lab [Other] - 09/28/21 7:30 pm Toney Nicole MD [Primary Care Provider] - Celia Hernandez NP, IT APPLICATION DEVELOPMENT MANAGER-C [Nurse Practitioner] - 11/01/21 9:45 am Disposition Disposition (needs filled in before D/C Order can be placed): Home Health Service
[2021-09-21 11:01] LABS: Bedside Glucose 141 mg/dL (74-106)
--- NOTE | 2021-09-21 11:40 | DS.PCM_ITS ---
Providers Date of Admission: 09/03/21 Primary Care Physician: Dr. Toney Nicole MD Consultations 09/05/21 06:55 Consult: Staffing Branch Manager / Pulmonary Medicine Routine Consulting Provider: Mat Rodriguez Reason for Consult: suspected central spleep apnea EMERGENT Consult: No MD Notified: Yes Date Notified: 09/05/21 Time Notified: 06:55 Method of Notification: Verbal Method of Consult:: In-Person Reason For Visit: STROKE Diagnosis Discharge Diagnosis (1) Physical debility: Status: Acute Code(s): R53.81 - Other malaise (2) Left middle cerebral artery stroke: Status: Acute Code(s): I63.512 - Cerebral infarction due to unspecified occlusion or stenosis of left middle cerebral artery (3) Occlusion of left internal carotid artery: Status: Acute Code(s): I65.22 - Occlusion and stenosis of left carotid artery (4) Occlusion of left middle cerebral artery: Status: Acute Code(s): I66.02 - Occlusion and stenosis of left middle cerebral artery (5) Cognitive dysfunction: Status: Acute Code(s): F09 - Unspecified mental disorder due to known physiological condition (6) Dysphagia as late effect of stroke: Status: Acute Code(s): I69.391 - Dysphagia following cerebral infarction (7) Hemiparesis of right dominant side due to cerebral infarction: Status: Acute (8) Dysarthria: Status: Acute Code(s): R47.1 - Dysarthria and anarthria (9) Acute respiratory failure with hypoxia and hypercarbia: Status: Acute Code(s): J96.01 - Acute respiratory failure with hypoxia; J96.02 - Acute respiratory failure with hypercapnia (10) Head injury due to trauma: Status: Acute Code(s): S09.90XA - Unspecified injury of head, initial encounter (11) Laceration: Status: Acute (12) Urinary incontinence: Status: Acute Code(s): R32 - Unspecified urinary incontinence (13) Malnutrition: Status: Acute Code(s): E46 - Unspecified protein-calorie malnutrition (14) Hypotension: Status: Resolved Code(s): I95.9 - Hypotension, unspecified (15) Dehydration: Status: Acute Code(s): E86.0 - Dehydration (16) Orthostatic hypotension: Status: Acute Code(s): I95.1 - Orthostatic hypotension (17) Aspiration into airway: Status: Acute Code(s): T17.908A - Unspecified foreign body in respiratory tract, part unspecified causing other injury, initial encounter (18) COPD exacerbation: Status: Resolved Code(s): J44.1 - Chronic obstructive pulmonary disease with (acute) exacerbation (19) COPD (chronic obstructive pulmonary disease): Status: Chronic Code(s): J44.9 - Chronic obstructive pulmonary disease, unspecified (20) Sleep-disordered breathing: Status: Acute Code(s): G47.30 - Sleep apnea, unspecified (21) Lung nodule seen on imaging study: Status: Acute Code(s): R91.1 - Solitary pulmonary nodule (22) Tobacco dependence in remission: Status: Acute Code(s): F17.201 - Nicotine dependence, unspecified, in remission (23) HTN (hypertension): Status: Chronic Code(s): I10 - Essential (primary) hypertension (24) HLD (hyperlipidemia): Status: Chronic Code(s): E78.5 - Hyperlipidemia, unspecified (25) BPH (benign prostatic hyperplasia): Status: Chronic (26) Overweight (BMI 25.0-29.9): Status: Acute Code(s): E66.3 - Overweight (27) Uncontrolled type 2 diabetes mellitus: Status: Acute Code(s): E11.65 - Type 2 diabetes mellitus with hyperglycemia Plan: DC home on 09/21/21 with home O2 ([employer]) to be worn anytime he is sleeping, FWW, [facility] for PT/OT/ST. They were given a referral from the for resources to install grab bars and handrails in the home. Medications at Discharge Home Medications aspirin 81 mg PO BREAKFAST #0 tab 09/21/21 doxazosin 2 mg PO QHS #30 tab 09/21/21 empagliflozin [Jardiance] 25 mg PO DAILY #30 tab 09/21/21 insulin glargine [Lantus Solostar U-100 Insulin] 24 unit SUBCUT DINNER 30 Days #7.2 ml 09/21/21 insulin lispro [Humalog KwikPen Insulin] 12 unit SUBCUT TIDAC 30 Days #10.8 ml 09/21/21 metoprolol tartrate 12.5 mg PO BID #30 tab 09/21/21 rosuvastatin 10 mg PO QHS #30 tab 09/21/21 albuterol sulfate 2 puff INHALATION Q4H PRN #8.5 g 09/22/21 fluticasone furoate-vilanterol 1 inh INHALATION Q24H #60 ea 09/22/21 inhalational spacing device [Aerochamber MV] #1 ea 09/22/21 Hospital Course Operations None Procedures None and - (He wore AVAPS with O2 bleed in at night for sleep disordered breathing. ) Summary of Care Provided Minutes Spent on Discharge: 50 Hospital Course: ELEAZAR LAIRD, is a 66 YO M with a PMH of HTN, DM II, hyperlipidemia and tobacco dependence in remission who presented to [facility] ED on 08/27/21 c/o slurred speech and weakness in the RUE. This progressed while he was in the ED to complete aphasia. NC CTB showed increased attenuation of the left MCA possibly representing a dense MCA sign from an acute LMCA infarct. CTA of the head and neck showed an occluded proximal left common carotid artery and left carotid bifurcation with reconstitution of the left internal carotid artery distal to the cavernous segment, occluded proximal left middle cerebral artery and mild right carotid stenosis estimated at 10%. Consult was obtained with [facility] teleneurology. The NIHSS was 14 at the time of the consult. Since presentation was within 4 hours of LKW TPA was recommended and transfer to [facility] for LVO. Additional imaging was done at [facility] and no thrombectomy was attempted due to chronic occlusion of the L Carotid. MRI was consistent with a recent infarct in the left MCA territory involving the left basal ganglia and insula. There was also a small age-indeterminate infarct in the left superior frontal gyrus. Upon arrival at [facility] the NIHSS was up to 19 and he was hypotensive with a MAP in the low 60's. Creat was elevated and he was hydrated. The HGB was also increased at 16.4. The following morning the creat was down to 0.8 and the HGB was 14.8. He is on HCTZ for Hypertension and he takes Lasix PRN for swelling in his legs. Eric was seen by PT/OT/ST while at [facility] and acute inpt rehab was recommended at [facility]. He was transferred to the acute inpt rehab unit at [facility] on 09/03/21 for 3 hours of therapy daily to restore function/independence as close as possible to the level prior to the CVA. When Eric arrived on rehab he was lethargic, slurring his speech and obtunded. He would fall asleep talking with me. He could not remember to call for assistance when he needed to go to the BR or get in the chair. He fell trying to get out of bed and struck his R forehead and R supraorbital area causing a laceration of the area beneath the R eyebrow. While I was suturing the laceration he was supine and RR was very slow and the respirations were very shallow. He had an elevated serum bicarb when he came to us and he was on oxygen.......he was not on oxygen prior to the stroke. Blood gas was consistent with a mixed acid base disorder. An overnight trending pulse ox was very abnormal with multiple desaturations. Oxygen was ordered anytime he was sleeping. He continued to be obtunded with slow thought processing and poor memory. Dr. Rodriguez was consulted and he was placed on AVAPS. After a couple nights on AVAPS with good sleep he became much more alert and better able to participate in therapy. The metabolic alkalosis resolved, until he refused to wear the AVAPS one night and the next morning he was lethargic and obtunded again. I suspect he has had ANN MARIE for some time because his HGB has been trending up. He snores, has HTN, is over 55, his neck is > 40 cm and he is male. A sleep study was arranged for after DC and he will follow up with Dr. Rodriguez following the sleep study. I also suspect he has significant COPD because the BS's are markedly diminished throughout and he has an increased AP diameter of the chest. He also wheezes at times. He will also be getting PFT's post DC. Eric was compliant for the rest of the stay in rehab and wore the AVAPS all night every night. He progressed to the point where the team felt he would be safe going home with some min assist from his , Nell. Prior to discharge he was able to ascend/descend 8 steps with a handrail on the right and a straight cane in the left upper extremity at contact-guard assist. He was ab le to go from sitting to standing from various surfaces at standby assist/supervision. He ambulated 200 feet on unlevel surfaces with a straight cane at contact-guard assist and an additional 163 feet on level ground with a straight cane at SBA/CGA. He was standby assist to minimal assistance with all activities of daily living. He still requires some cueing for proper hand placement and use of the front wheeled walker. He also requires some cuing to slow down when eating and take 1 bite at a time with 2 swallows while tucking the chin. Early in the admission he was coughing quite a bit, even with handling his own secretions. Prior to [facility] I rarely heard him cough. Eric was discharged home with [facility] through [facility] for PT/OT/ST/SN. Home oxygen was arranged by the and she also arranged for a FWW. They were given a resource for having grab bars installed in the house and his son put up a HR so that he could enter his house safely. Sleep study was scheduled for 09/28/21. He will follow up with Dr. Nicole and with Dr. Rodriguez and neurology. A 30 day event monitor was ordered at [facility] because with the suspected ANN MARIE he may be having PAF. He is also going to need to follow up with a vascular surgeon at some point. Prescriptions at [facility] were faxed to [facility]. The prescriptions they were given were refills from Dr. Nicole per Nell and they were NOT given the prescriptions I faxed to the pharmacy. The dosage was changed on some of the medications while in rehab due to orthostatic hypotension. They gave her a prescription for Lasix and this was discontinued while he was in rehab due to dehydration. Nell had to return to the pharmacy to and sweet pickle maker the correct prescriptions. They would not fill the Lispro because his insurance only covers Novolog and I had the charge nurse call and OK substituting Novolog for Lispro at the same dosage. He had no edema during his stay in rehab and was on no Lasix. Edema was adequately controlled with compression stockings while in rehab. An incidental finding on a CT of the chest done at [facility] was a TODD pulmonary nodule. It has 2 components. This will need to be followed as an OP and he should have a repeat CT chest in 3 months to assess for stability. Physical Exam Const alert, oriented x3, no apparent distress and well nourished Constitutional Narrative: Lying in bed when I entered the room watching TV. General Appearance: cooperative, comfortable and well developed HEENT normocephalic and head/scalp atraumatic Eyes PERRL, EOMs intact bilaterally, conjunctivae normal and no scleral icterus Eyes Narrative: no scleral icterus or conjunctival injection. No crusting of the eyelids. Neck supple and No nodes General: trachea midline Lymph Lymphatic: no lymphadenopathy noted Resp no use of accessory muscles and clear to auscultation bilaterally Resp Narrative: Decreased air entry throughout. No pursed lip breathing. Has been wearing the AVAPS every night and has not been taking it off. Effort and Inspection: able to speak in complete sentences and symmetric chest movement; Negative for tachypneic Auscultation: diminished lung sounds; Negative for rales, rhonchi, wheezes or egophony Cardio regular rate, regular rhythm, S1 normal heart sound, S2 normal heart sound, no murmurs, no rub and no gallops Cardio Narrative: No ectopy GI normal to inspection, nondistended, normoactive bowel sounds, soft to palpation and non-tender GI Narrative: No guarding with palpation Extremity no calf tenderness and no pedal edema Extremity Narrative: YNES hose are in place and I encouraged him to continue using the YNES hose to control swelling in his ankles at [facility]. General Extremity: Negative for clubbing, cyanosis or edema Skin no wounds Skin Narrative: The lacerations of the R eyebrow area are healed. There is no erythema, pain or discharge. General Skin Exam: no breakdown Rashes: no rashes Wounds: wounds noted Wound Narrative: see narrative under HEENT about lacerations of the R eyebrow Neuro Neuro Narrative: minimal facial droop now. He is ambulating with a reciprocal pattern and at a good henny. Rarely cough now when eating. Able to ambulate with a straight cane. Psych cooperative and affect normal Appearance: grossly normal and appropriate Activity / Motor Behavior: appropriate eye contact Speech: slurred Mood & Affect: euthymic mood, irritable and flat affect; Negative for anxious Attention / Concentration: other concentration and attention are still lacking for any sustained length of time with the ST. Memory / Cognition: cognition impaired Insight: limited Judgement: limited Medical Records Data Medical Nutrition Assessment Dietitian: Malnutrition Criteria Met Start: 09/04/21 17:12 Freq: Status: Active Protocol: Document 09/18/21 11:23 RMA (Rec: 09/18/21 11:23 RMA [id number]) Nutrition Malnutrition Evidence of Malnutrition Exists Yes Malnutrition (severe): Acute Illness/Injury Evidenced By Suboptimal Energy Intake ( Severe),Weight Loss (Severe) Clinical Problem Acute Disease or Injury Related Malnutrition Etiology Severe protein-calorie malnutrition in the context of acute illness related to swallowing difficulty/stroke Signs/Symptoms as evidenced by mechanically altered diet/thickened liquids , 5% wt loss x 1 week and PO at meals~50%/meeting less than 50% estimated nutrition needs Status Resolved Problem Recommendation Dietitian Recommendations/Changes Continue 1999 calorie/ consistent carbohydrate/ cardiac with consistency as per INDUSTRIAL RELATIONS COUNSELOR---currently soft/bite- sized food w/ thin liquids. Trend weight closely and encourage adequate intake at meals; ONS as needed if PO/wt decline--not indicated at this time. Weight / BMI Weight Weight: 189 lb 6.033 oz Body Mass Index (BMI) 29.5 ABG / Lab / Microbiology Data Result Diagrams: 09/04/21 05:35 09/20/21 05:26 Laboratory: Laboratory Results - last 24 hr 09/20/21 16:15: POC Glucose 160 H 09/20/21 20:26: POC Glucose 94 09/21/21 06:17: POC Glucose 129 H 09/21/21 10:58: POC Glucose 141 H D/C Instructions Discharge Diet: 2000 Calorie Control Diet and - (consistent carbohydrate, low salt) Weight Bearing Status: Full weight bearing Call your doctor if you observe: Fever of 101 or Higher, Inability to urinate, Shortness of breath, Dizziness (Feeling lightheaded or having the room spin. ), Fainting spells, Swelling in the ankles, Chest pain, Increased palpitations (irregular heartbeat) (Rapid irregular heartbeat. ), Calf discomfort and - (ANY new stroke symptoms. Problems with balance, loss of vision, increased facial droop, increased weakness on 1 side and not the other, slurred speech or inability to get words out, numbness on one side and not the other. ) Pending Tests Upon Discharge: none Please Follow Up With: Toney Nicole MD Meaningful Use Info Meaningful Use Diagnoses (Choose all that apply): Ischemic CVA CVA Therapy Assessed for PT,OT and/or ST?: Yes Ischemic Stroke Antithrombotic order at d/c?: Yes Dx of Atrial fib/flutter?: No Anticoagulant at discharge?: No Reason anticoagulant not ordered: Treatment not Indicated (30 day event monitor ordered at [facility]) Statins at discharge?: Yes Primary Dx Acute Ischemic CVA?: Yes IV tPA ordered during stay?: No Reason IV t-PA not ordered: Treatment not Indicated (He was given TPA in the ED on the day he had the stroke. We are a rehab unit. ) Discharge Plan Admission Admit Date/Time: 09/03/21 18:00 Primary Reason for Your Visit: Post stroke debility Attending Provider: Zoë Lenz Primary Care Provider: Toney Nicole Consulting Providers: Mat Rodriguez Instructions Patient Instructions: Discharge Instructions: COPD, Discharge Instructions for Stroke Additional Instructions / Restrictions: 1. You have sleep disordered breathing. this means that when you fall asleep you stop breathing. When this happens the oxygen in the blood drops and the carbon dioxide level goes up in you. The increase in the carbon dioxide cause a headache sometimes and makes you confused. The low oxygen can cause an abnormal rhythm of the heart called atrial fibrillation and this is a frequent cause of stroke. You were very confused and did not do well with therapy until you started wearing the mask all night. Soon after you started on the mask you were much more alert and you started to progress in therapy because your cognition and ability to follow instructions improved significantly with the mask. We can not order a breathing machine for you until you have a formal sleep study and then follow up with Dr. Rodriguez who will order a machine for you. The sleep study has been scheduled. Until you get a breathing machine you should wear the oxygen ANYTIME you are sleeping.......even for naps. 2. I have ordered a 30 day event monitor for you. I suspect you may be having intermittent atrial fibrillation when you are sleeping and if so then we need to get you on an anticoagulant to prevent another stroke. You would be at very high risk for another stroke if you are having atrial fibrillation (also called AFIB). You will wear the monitor for 30 days and then the procedure analyst will look at the results. 3. The risk factors for stroke are being a man over the age of 50, having diabetes, smoking, high blood pressure, high cholesterol, family history of strokes or heart attacks, atrial fibrillation. You BP is well controlled and your blood sugars have been very good in rehab. You have quit smoking. Your cholesterol is good. If you get the sleep apnea treated and you keep your HGBA1C under 7 and your BP < 130/80 and your LDL (bad cholesterol) less than 70 and you do not smoke then you will really decrease your risk of having another stroke. The work does not stop when you leave rehab. You will be getting therapy at home and do your best to stay active even when the therapists are not at your house. Stay healthy in mind and body. You have a lot to live for so remember your goals and take good care of yourself. 4. In addition to having sleep apnea you also most likely have COPD. You will need to have pulmonary function tests to prove this but, there may be some inhalers that improve your breathing with exercise. Dr. Rodriguez will talk to you about this. 5. You had a CT scan of the chest at [facility] and it showed a nodule in the left llung in the upper lobe. This may just be a scar BUT, you need to have another CT of the chest in 3 months to make sure the nodule is not growing. Either Dr. Nicole or Dr. Rodriguez can order this and follow up on the results. 6. Your BP was dropping low when you went from sitting to standing and we had to change the doses of some of your medications. Take only what is listed on the discharge instructions when you get home. 7. It has been a pleasure to meet you Eric and to help you recover from the stroke. If you, Nell or Jose Manuel have any questions after you leave rehab please do not hesitate to call me. OFFICE: [phone] CELL: [phone] Discharge Orders/Prescriptions Prescriptions: New doxazosin 1 mg Tablet 2 mg PO QHS Qty: 30 RF: 0 aspirin 81 mg Tablet,Chewable 81 mg PO BREAKFAST Qty: 0 RF: 0 Jardiance 25 mg Tablet 25 mg PO DAILY Qty: 30 RF: 0 Lantus Solostar U-100 Insulin 100 unit/mL (3 mL) Insulin Pen 24 unit subcut DINNER 30 Days Qty: 7.2 RF: 0 insulin lispro [Humalog KwikPen Insulin] 100 unit/mL Insulin Pen 12 unit subcut TIDAC 30 Days Qty: 10.8 RF: 0 rosuvastatin 10 mg Tablet 10 mg PO QHS Qty: 30 RF: 0 metoprolol tartrate 25 mg Tablet 12.5 mg PO BID Qty: 30 RF: 0 fluticasone furoate-vilanterol 100-25 mcg/dose blister with device 1 inh inhalation Q24H Qty: 60 RF: 0 albuterol sulfate 90 mcg/actuation HFA aerosol inhaler 2 puff inhalation Q4H PRN (Reason: shortness of breath or wheezing) Qty: 8.5 RF: 1 (DME) Aerochamber MV Spacer See Rx Instructions .ROUTE .MEDSUPPLY Qty: 1 RF: 0 Other Ambulatory Orders: 30-Day Event Recorder (Routine) Location: None Selected Ordered By: Dr. Zoë Lenz Referrals / Follow Up: Sleep Lab [Other] - 09/28/21 7:30 pm Toney Nicole MD [Primary Care Provider] - Celia Hernandez NP, BOOK MENDER-C [Nurse Practitioner] - 11/01/21 9:45 am Disposition Disposition (needs filled in before D/C Order can be placed): Home Health Service Charges/Coding Visit Charges Inpatient E&M: 61178 Disch Hosp
--- NOTE | 2021-09-21 14:17 | NURSING ---
discharge instructions given to pt and . both deny questions or concerns. instructed to call if she has questions upon returning home. pt taken down to ground floor by wheelchair and transported home by car.
[2021-09-21 14:19] VITALS: BMI 29.5
--- NOTE | 2021-09-22 12:55 | CASEMGMT ---
Social Work Dr. Lenz received call from on this date. Dr. Lenz contacted this worker as she has changed the O2 order to 2-3LPM continuously until pt receives correct breathing machine from sleep study. Updated [employer] and faxed new order. Susy Ha, STEAM POWER PLANT OPERATOR APPLICATIONS SUPPORT LEAD
== END 2021-09-21 14:22 | disposition home health service (06) | DRG 41 ==
PROVIDERS: Admitting Provider Internal Medicine; PCP Family Medicine; Visit Provider Internal Medicine
DX: I69.351 Hemiplegia and hemiparesis following cerebral infarction affecting right dominant side (principal); J96.12 Chronic respiratory failure with hypercapnia; E46 Unspecified protein-calorie malnutrition; E87.2 Acidosis; J96.11 Chronic respiratory failure with hypoxia; J44.9 Chronic obstructive pulmonary disease, unspecified; E11.65 Type 2 diabetes mellitus with hyperglycemia; G47.31 Primary central sleep apnea; I10 Essential (primary) hypertension; I69.322 Dysarthria following cerebral infarction; E78.5 Hyperlipidemia, unspecified; N40.1 Benign prostatic hyperplasia with lower urinary tract symptoms; S61.217A Laceration without foreign body of left little finger without damage to nail, initial encounter; W19.XXXA Unspecified fall, initial encounter; S01.112A Laceration without foreign body of left eyelid and periocular area, initial encounter; S80.211A Abrasion, right knee, initial encounter; R32 Unspecified urinary incontinence; R13.10 Dysphagia, unspecified; Y99.9 Unspecified external cause status; Y92.89 Other specified places as the place of occurrence of the external cause; Z87.891 Personal history of nicotine dependence; R91.1 Solitary pulmonary nodule
CPT/HCPCS: 36415; 36600; 70450; 71046; 74230; 80048; 80053; 81001; 82803; 82962; 83036; 83735; 84100; 85025; 92507; 92523; 92526; 92610; 92611; 94002; 94003; 94640; 94762; 97110; 97112; 97116; 97162; 97166; 97530; 97535; 97802; 99251; J7030; J7040; A4216; G0463

== ENCOUNTER 2021-09-28 19:45 | Outpatient (CLI) | payer MEDICARE, OTHER, SELFPAY | END 2021-09-28 23:59 | disposition home or self-care (01) | PROVIDERS: PCP Family Medicine; Visit Provider Internal Medicine | DX: G47.30 Sleep apnea, unspecified (principal) | CPT/HCPCS: 95810 ==

== ENCOUNTER 2021-10-21 12:55 | Inpatient (IN) | payer MEDICARE, OTHER, SELFPAY ==
[2021-10-21] VITALS (14 sets, daily range): BP systolic 119–163; BP diastolic 47–77; PULSE 79–106; RESP 16–24; TEMP 36.2–36.7; O2SAT 80–96; BMI 27.7; BMI 28.5
--- NOTE | 2021-10-21 13:10 | EKG12_ITS ---
Test Reason : GENERAL ILLNESS Blood Pressure : / mmHG Vent. Rate : 077 BPM Atrial Rate : 077 BPM P-R Int : 204 ms QRS Dur : 070 ms QT Int : 378 ms P-R-T Axes : 074 061 053 degrees QTc Int : 427 ms Normal sinus rhythm lo Confirmed by WANDA HARRIS, VIKI ([id number]), sound editor OVIDIO BLACKBURN ([id number]) on 10/24/2021 11:09:37 AM Referred By: JONEL/PING Confirmed By:VIKI MUÑOZ MD
--- NOTE | 2021-10-21 13:11 | EDS_ITS ---
HPI History of Present Illness Chief Complaint: Dizziness Detail of Chief Complaint: Dizziness that started 10 AM Informant: patient and spouse/S.O. Narrative Narrative: Patient presents to the emergency department with complaint of sudden onset of dizziness that started around 10 AM. Patient states that he stood up to go use the restroom when he felt more lightheaded rather than vertiginous. Patient got nauseated and vomited about 3 times. He denies recent illness. He denies chest pain. Denies headache. Patient states that he had a stroke 2-1/2 months ago. Patient is not on blood thinners. He did not fall or hit his head. He did not pass out. At rest he really does not feel dizzy. He still has some mild nausea. Prior similar symptoms: No PFSH PFSH Medical History (Updated 10/21/21 @ 15:[address] 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 Stroke/cerebrovascular accident Tobacco dependence in remission Uncontrolled type 2 diabetes mellitus Home Medications aspirin 81 mg PO BREAKFAST #0 tab 09/21/21 [Rx Last Taken Unknown] doxazosin 2 mg PO QHS #30 tab 09/21/21 [Rx Last Taken Unknown] empagliflozin [Jardiance] 25 mg PO DAILY #30 tab 09/21/21 [Rx Last Taken Unknown] metoprolol tartrate 12.5 mg PO BID #30 tab 09/21/21 [Rx Last Taken Unknown] rosuvastatin 10 mg PO QHS #30 tab 09/21/21 [Rx Last Taken Unknown] albuterol sulfate 2 puff INHALATION Q4H PRN #8.5 g 09/22/21 [Rx Last Taken Unknown] fluticasone furoate-vilanterol 1 inh INHALATION Q24H #60 ea 09/22/21 [Rx Last Taken Unknown] inhalational spacing device [Aerochamber MV] #1 ea 09/22/21 [Rx Last Taken Unknown] insulin aspart U-100 [Novolog Flexpen U-100 Insulin] 12 unit SUBCUT TID 10/21/21 [History Last Taken Unknown] insulin glargine [Basaglar KwikPen U-100 Insulin] 28 unit SUBCUT DINNER 10/21/21 [History Last Taken Unknown] Allergy/AdvReac Type Severity Reaction Status Date / Time No Known Allergies Allergy Verified 10/21/21 12:57 Family History Other Diabetes Hypertension Surgical History History of appendectomy Social History household members: spouse number of children: 1 current occupational status: retired Smoking Status: Former smoker how long ago did patient quit smoking: he quit smoking at least 20 years ago alcohol intake: current details: occasional substance use type: does not use ROS ROS ED Constitutional Constitutional ED: Reports systems reviewed and no addt'l complaints, except as documented; Denies body ache(s), change in weight or chills Eyes Eyes: Denies acute decrease in peripheral vision, change in vision, double vision or loss of vision ENT ENT ED: Reports none; Denies ear pain, lip swelling, loss taste/smell, neck pain, otalgia or sore throat Cardiovascular Cardiovascular: Reports none; Denies abdominal pain, chest pain with activity, leg edema, lightheadedness, palpitations, rapid heart rate or syncope Respiratory/Chest Respiratory/Chest: Reports none; Denies change in mental status, dry cough, dyspnea, hemoptysis, shortness of breath at rest or shortness of breath with exertion Gastrointestinal Gastrointestinal: Reports none, nausea and vomiting; Denies abdominal pain, change in stool character, diarrhea, hematemesis, hematochezia, melena or rectal bleeding Genitourinary Genitourinary ED: Reports none; Denies abdominal discomfort, anuria, dysuria, genital pain or polyuria Musculoskeletal Musculoskeletal: Reports none; Denies arthralgias, back pain, difficulty walking, extremity pain, muscle weakness or myalgias Integumentary Reports none; Denies abscess or rash Neurologic Neurologic: Reports none and other Details: Dizziness ; Denies abnormal gait, confusion, focal weakness, frequent falls, headache(s), loss of vision, numbness, paresthesias, radicular pain, vertigo or weakness Psychiatric Psychiatric: Reports systems reviewed and no addt'l complaints, except as documented and none; Denies behavioral changes, confusion, difficulty concentrating, hallucinations, suicidal ideation, tactile hallucinations or visual hallucinations Endocrine Endocrinology: Denies none, cold intolerance, excessive sweating, fatigue or heat intolerance Hematologic/Lymphatic Hematologic/Lymphatic: Reports none; Denies anemia, easy bleeding or easy bruising Allergic/Immunologic Allergic/Immunologic ED: Denies as per HPI, none, lip swelling, mouth swelling, throat swelling, tongue swelling or hives EXAM Physical Exam Const Vital Signs: 10/21/21 12:56 10/21/21 13:15 10/21/21 13:20 Temperature 97.2 F L Temperature Source Temporal Pulse Rate 84 Pulse Rate [Lying] Pulse Rate [Sitting (for 1 minute prior to obtaining)] Pulse Rate [Standing (for 1 minute prior to obtaining)] Respiratory Rate 18 Respiratory Effort Normal Non-Labored Blood Pressure 163/67 H Blood Pressure [Lying] Blood Pressure [Sitting (for 1 minute prior to obtaining)] Blood Pressure [Standing (for 1 minute prior to obtaining)] Blood Pressure Mean 99 Blood Pressure Mean [Lying] Blood Pressure Mean [Sitting (for 1 minute prior to obtaining)] Blood Pressure Mean [Standing (for 1 minute prior to obtaining)] Pulse Ox 96 90 Oxygen Delivery Method Room Air Nasal Cannula Oxygen Flow Rate (L/min) 2 10/21/21 13:25 10/21/21 13:36 10/21/21 14:57 Temperature Temperature Source Pulse Rate 79 Pulse Rate [Lying] 94 Pulse Rate [Sitting (for 1 minute prior to obtaining)] 100 Pulse Rate [Standing (for 1 minute prior to obtaining)] 98 Respiratory Rate 20 H Respiratory Effort Blood Pressure Blood Pressure [Lying] 150/64 H Blood Pressure [Sitting (for 1 minute prior to obtaining)] 150/63 H Blood Pressure [Standing (for 1 minute prior to obtaining)] 146/70 H Blood Pressure Mean Blood Pressure Mean [Lying] 92 Blood Pressure Mean [Sitting (for 1 minute prior to obtaining)] 92 Blood Pressure Mean [Standing (for 1 minute prior to obtaining)] 95 Pulse Ox 95 Oxygen Delivery Method Nasal Cannula Oxygen Flow Rate (L/min) 2 10/21/21 14:58 10/21/21 15:02 Temperature Temperature Source Pulse Rate Pulse Rate [Lying] Pulse Rate [Sitting (for 1 minute prior to obtaining)] Pulse Rate [Standing (for 1 minute prior to obtaining)] Respiratory Rate Respiratory Effort Blood Pressure Blood Pressure [Lying] Blood Pressure [Sitting (for 1 minute prior to obtaining)] Blood Pressure [Standing (for 1 minute prior to obtaining)] Blood Pressure Mean Blood Pressure Mean [Lying] Blood Pressure Mean [Sitting (for 1 minute prior to obtaining)] Blood Pressure Mean [Standing (for 1 minute prior to obtaining)] Pulse Ox 86 91 Oxygen Delivery Method Room Air Nasal Cannula Oxygen Flow Rate (L/min) 2 Positive well nourished and well developed General Appearance ED: well developed and NAD HEENT Reports TM's clear and moist mucous membranes normocephalic and atraumatic; Negative for trauma or tenderness Tympanic Membrane ED: Yes TM's clear Eyes PERRL and EOMs intact bilaterally General Eye ED: Negative for pale conjunctiva or scleral icterus Neck no lymphadenopathy, supple and no JVD General: Negative for tenderness Chest Wall inspection of chest normal and palpation of chest normal Chest: Negative for tenderness Resp normal respiratory effort and clear to auscultation bilaterally Resp Narrative: Patient with mild tachypnea and some faint expiratory wheezes noted. No accessory muscle use or retractions. Effort and Inspection: Negative for respiratory distress or pain with movement Auscultation: wheezes; Negative for rhonchi or diminished lung sounds Cardio regular rate, regular rhythm, S1 normal heart sound, S2 normal heart sound and no murmurs Peripheral Pulses: pulses 2+ throughout GI normal to inspection, nondistended, normoactive bowel sounds, soft to palpation, non-tender, non-distended and no masses Back/Spine no CVA tenderness and no thoracic nor lumbar tenderness Extremity normal to inspection General Extremety ED: Negative for edema General Extremity: Negative for edema Neuro oriented x3, CN's II-XII intact bilaterally, no sensory deficits noted and gait normal Neuro Narrative: Hallpike maneuver performed was negative for nystagmus and could not reproduce his symptoms. No focal neurologic deficits noted. Sensorium / Orientation: awake, alert, oriented to person, oriented to place and oriented to time Motor Exam: strength 5/5 throughout and strength abnormal Psych mental status grossly normal Skin no rashes or lesions noted and no wounds MDM MDM MDM Narrative Medical decision making narrative: IV line established on arrival. Patient was given a DuoNeb aerosol for wheezing. His oxygen level improved with 2 L of O2. Lab work-up was significant for an elevated D-dimer therefore CT of the chest was obtained which was negative for PE but did show a bulla with some scar tissue. I did have nursing staff remove his oxygen and perform orthostatic vital signs which were positive. His oxygen level did drop again down into the 80s and it took a short time to recover back and the 90s once he was placed on oxygen again. Patient was started on Solu-Medrol 125 mg IV. Case will be discussed with hospitalist evaluate patient for admission for diagnosis of COPD exacerbation. Patient tells me he has an appointment with a front end technician on November 01. Etiology of dizziness unclear but seems to have resolved. Lab Data Attestation: I reviewed the patient's lab results. Labs: Laboratory Results - last 24 hr 10/21/21 10/21/21 10/21/21 13:27 13:27 13:37 WBC 10.2 RBC 5.29 Hgb 16.6 H Hct 52.6 MCV 99.4 H MCH 31.4 MCHC 31.6 L RDW Std Deviation 52.5 H RDW Coeff of [place] 14.2 Plt Count 159 MPV 10.7 Immature Gran % (Auto) 0.300 Neut % (Auto) 81.0 H Lymph % (Auto) 12.4 L [place] % (Auto) 4.9 Eos % (Auto) 1.2 Baso % (Auto) 0.2 Absolute Neuts (auto) 8.2 H Absolute Lymphs (auto) 1.26 Nucleated RBC % 0 D-Dimer Quant (PE/DVT) 1.00 H* Sodium 142 Potassium 4.1 Chloride 109 H Carbon Dioxide 30.0 Anion Gap 3 L BUN 11 Creatinine 0.89 Estim Creat Clear Calc 74.27 Est GFR (MDRD) Af Amer 110 Est GFR (MDRD) Non-Af 91 BUN/Creatinine Ratio 12.4 Glucose 103 Calcium 9.1 Troponin I High Sens < 3 L Radiography Chest X-Ray - ED: 1 View Diagnostic Testing: Clinical Impression(s) from Imaging Studies Chest X-Ray 10/21/21 13:44 IMPRESSION: No active pulmonary disease. Electronically Signed: Tito Diggs MD at 14:01 EDT , Chest CTA 10/21/21 14:11 IMPRESSION: 1. No evidence of pulmonary embolism or aortic dissection. 2. Left upper lobe bulla with adjacent stranding/scarring extending to the pleural surface could be due to pleural thickening. Follow-up examination 3 months is recommended. 3. Otherwise no mass, adenopathy or focal acute infiltrate. Electronically Signed: Tito Diggs MD at 15:03 EDT , 1 view chest x-ray obtained interpreted by myself as no acute disease process. Radiology in agreement. EKG Initial EKG: Attestation: I personally reviewed and interpreted this EKG as follows: Comments: Sinus rhythm with a rate of 77 bpm with no acute ST segment changes Discharge Plan Triage Chief Complaint: Dizziness ED Provider: Jermaine Will Dx/Rx/DC Orders Clinical Impression: Dizziness, COPD exacerbation, Hypoxemia Prescriptions: No Action doxazosin 1 mg Tablet 2 mg PO QHS Qty: 30 RF: 0 aspirin 81 mg Tablet,Chewable 81 mg PO BREAKFAST Qty: 0 RF: 0 Jardiance 25 mg Tablet 25 mg PO DAILY Qty: 30 RF: 0 rosuvastatin 10 mg Tablet 10 mg PO QHS Qty: 30 RF: 0 metoprolol tartrate 25 mg Tablet 12.5 mg PO BID Qty: 30 RF: 0 fluticasone furoate-vilanterol 100-25 mcg/dose blister with device 1 inh inhalation Q24H Qty: 60 RF: 0 albuterol sulfate 90 mcg/actuation HFA aerosol inhaler 2 puff inhalation Q4H PRN (Reason: shortness of breath or wheezing) Qty: 8.5 RF: 1 (DME) Aerochamber MV Spacer See Rx Instructions .ROUTE .MEDSUPPLY Qty: 1 RF: 0 insulin aspart U-100 [Novolog Flexpen U-100 Insulin] 100 unit/mL (3 mL) insulin pen 12 unit SUBCUT TID RF: 0 Basaglar KwikPen U-100 Insulin 100 unit/mL (3 mL) insulin pen 28 unit SUBCUT DINNER RF: 0 Primary Care Provider: Toney Nicole Referrals: Toney Nicole MD [Primary Care Provider] - Disposition Disposition: Acute Care [facility]
[2021-10-21 13:33] LABS: Absolute Lymphocyte Count 1.26 X10^3/uL (0.83-4.51); Absolute Neutrophil Count 8.2 X10^3/uL (2.0-7.7); Basophil# 0.02 X10^3/uL; Basophil% 0.2 % (0-1); Eosinophil# 0.12 X10^3/uL; Eosinophils% 1.2 % (0-5); Hematocrit 52.6 % (40-54); Hemoglobin 16.6 g/dL (13.0-16.5); Lymphocyte # 1.26 X10^3/ul (0.83-4.51); Lymphocyte % 12.4 % (19-41); Mean Corp Hgb Conc 31.6 g/dL (32-36); Mean Corpuscular Hgb 31.4 pg (27.0-32.0); Mean Corpuscular Volume 99.4 fL (80-94); Mean Platelet Vol. 10.7 fl (6.2-12.0); Monocyte% 4.9 % (0-10); NRBC Flagged by Analyzer 0 % (0-5); Neutrophil # 8.22 X10^3/uL (2.7-7.7); Platelet Count 159 K/mm3 (150-450); RBC Distribution Width CV 14.2 % (11.6-14.6); RBC Distribution Width SD 52.5 fl (35.1-43.9); Red Blood Count 5.29 M/mm3 (4.6-6.2); White Blood Count 10.2 K/mm3 (4.4-11.0)
[2021-10-21] MEDS: 0.9% Normal Saline 1,000 ML 150 ML IV (13:35)
[2021-10-21] MEDS: Ipratropium/Albuterol Sulfate 3 ML AMPUL.NEB INHALATION ×2 (13:36→19:21)
[2021-10-21] MEDS: Ondansetron 4 MG/2 ML Vial IV (13:36)
--- NOTE | 2021-10-21 13:44 | RAD_ITS ---
STUDY: X-RAY CHEST REASON FOR EXAM: Male, 66 years old. Wheezing TECHNIQUE: Single AP portable view of the chest. COMPARISON: None. FINDINGS: The lungs are clear and expanded. There is no demonstrated pleural abnormality. Normal size heart. Normal mediastinum and jay. Normal visualized pulmonary arteries. Calcifications of the aortic arch. Monitor device overlying the chest. No demonstrated acute osseous changes. There is no demonstrated abnormality of the visualized soft tissue structures of the upper abdomen. RAD/Chest 1 View (Portable) IMPRESSION: No active pulmonary disease. Electronically Signed: Tito Diggs MD at 14:01 EDT ,
[2021-10-21 13:51] LABS: Anion Gap 3 (5-15); BUN 11 mg/dL (7-18); BUN/Creat Ratio 12.4 RATIO (10-20); Calcium,Total 9.1 mg/dL (8.5-10.1); Chloride 109 mmol/L (98-107); Creatinine, Serum 0.89 mg/dL (0.70-1.30); EST Glomerular Filtration Rate 91 mL/min (>60); Est Glom Filt Rate - Afr Amer 110 mL/min (>60); Estimated Creatinine Clearance 74.27 ml/min; Glucose 103 mg/dL (74-106); Potassium 4.1 mmol/L (3.5-5.1); Sodium Level 142 mmol/L (136-145); Troponin-I HS < 3 pg/mL (3.0-78.0)
--- NOTE | 2021-10-21 14:11 | CT_ITS ---
STUDY: CTA CHEST REASON FOR EXAM: Male, 66 years old. Dyspnea, elevated d-dimer RADIATION DOSAGE (If Supplied By Facility): CTDIvol = ( 9.89 ) mGy, DLP = ( 428.48 ) mGycm TECHNIQUE: The examination was performed with the intravenous administration of IV 100mL Isovue-370. Post-processing of the angiographic images was performed, with multiplanar reformation and 3D reconstruction. Individualized dose optimization techniques were used for this CT. COMPARISON: None. FINDINGS: Normal enhancement of the main pulmonary artery and right and left pulmonary arteries. Normal enhancement of the bilateral peripheral pulmonary arteries. There is no demonstrated pulmonary embolism. There is atherosclerotic calcification of the aortic arch and descending thoracic aorta. There is no demonstrated aortic dissection. Normal heart and pericardium. There are calcifications of the coronary arteries. Normal mediastinum. Normal hilar regions. Normal visualized trachea and bronchi. Cystic changes/bulla in the left upper lobe with mild stranding inferiorly thickening extending to the pleura could represent focal scarring or previous infectious process. Atelectasis or scarring in the left upper lobe. No focal infiltrate otherwise is seen. There are no pleural effusions. Normal chest wall structures. Mild degenerative changes in the thoracic spine. Visualized portions of the upper abdomen demonstrate nonspecific mild stranding in the left upper pole of the kidneys. The kidneys are not included on this exam. CT/CTA Chest W/WO Contrast IMPRESSION: 1. No evidence of pulmonary embolism or aortic dissection. 2. Left upper lobe bulla with adjacent stranding/scarring extending to the pleural surface could be due to pleural thickening. Follow-up examination 3 months is recommended. 3. Otherwise no mass, adenopathy or focal acute infiltrate. Electronically Signed: Tito Diggs MD at 15:03 EDT ,
[2021-10-21] MEDS: MethylPREDNISolone 125 MG/2 ML Vial IV (15:17)
--- NOTE | 2021-10-21 15:43 | PCM.HP.STD ---
Documented by User: Ja CAI 10/21/21 16:06 HPI - General General Date of Admission: 10/21/21 Date of Service: 10/21/21 Chief Complaint: Hypoxia HPI Narrative ELEAZAR LAIRD is a 66-year-old male who presents to the ED at [facility] on 10/21/2021 with a chief complaint of hypoxia. Patient initially presented to the ED for blurry vision and lightheadedness. Patient did not complain of nor did he display any focal neurological deficits. There was a low suspicion for stroke by ED physician, although patient's orthostatic vitals were positive. Patient reports that his blurry vision and lightheadedness have resolved since being in the ED and receiving fluids. While being examined in the ED patient began to develop hypoxia and satted down to 86% on room air. D-dimer was was elevated and CT-A was obtained which did not demonstrate any PE or aortic dissection. Patient oxygen saturations improved with supplemental oxygen and breathing treatments. Past medical history is significant for 40-year smoking history of smoking 1 to 2 packs/day, although patient reports that he has not smoked in 10 years. Patient also wears oxygen while he sleeps at night, although is unclear why. Chest x-ray was obtained and did not demonstrate any acute cardiopulmonary process, although lungs were hyperexpanded consistent with emphysematous change. Patient will be admitted for acute COPD exacerbation. 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 Stroke/cerebrovascular accident Tobacco dependence in remission Uncontrolled type 2 diabetes mellitus Home Medications aspirin 81 mg PO BREAKFAST #0 tab 09/21/21 [Rx Last Taken Unknown] doxazosin 2 mg PO QHS #30 tab 09/21/21 [Rx Last Taken Unknown] empagliflozin [Jardiance] 25 mg PO DAILY #30 tab 09/21/21 [Rx Last Taken Unknown] metoprolol tartrate 12.5 mg PO BID #30 tab 09/21/21 [Rx Last Taken Unknown] rosuvastatin 10 mg PO QHS #30 tab 09/21/21 [Rx Last Taken Unknown] albuterol sulfate 2 puff INHALATION Q4H PRN #8.5 g 09/22/21 [Rx Last Taken Unknown] fluticasone furoate-vilanterol 1 inh INHALATION Q24H #60 ea 09/22/21 [Rx Last Taken Unknown] inhalational spacing device [Aerochamber MV] #1 ea 09/22/21 [Rx Last Taken Unknown] insulin aspart U-100 [Novolog Flexpen U-100 Insulin] 12 unit SUBCUT TID 10/21/21 [History Last Taken Unknown] insulin glargine [Basaglar KwikPen U-100 Insulin] 28 unit SUBCUT DINNER 10/21/21 [History Last Taken Unknown] Allergy/AdvReac Type Severity Reaction Status Date / Time No Known Allergies Allergy Verified 10/21/21 12:57 Family History (Updated 10/21/21 @ 15:53 by Ja CAI) Mother Depression Suicide Father Heart disease Myocardial infarction Other Diabetes Hypertension Surgical History History of appendectomy Social History household members: spouse number of children: 1 current occupational status: retired Smoking Status: Former smoker how long ago did patient quit smoking: he quit smoking at least 20 years ago alcohol intake: current details: occasional substance use type: does not use ROS Constitutional Constitutional: Denies anorexia, change in weight, chills, fatigue, fever(s), malaise, night sweats, weakness or other Eyes Eyes: Reports blurry vision and change in vision; Denies change in eye color, discharge from eye(s), double vision, erythema, eye pain, loss of vision or other ENT HEENT: Denies abnormal hearing, dysphagia, ear pain, epistaxis, headache(s), hearing loss, nasal congestion, nasal discharge, post nasal drip, sinus pressure, sore throat or other Cardiovascular Cardiovascular: Denies chest pain, claudication, dyspnea on exertion, edema, lightheadedness, orthopnea, palpitations, paroxysmal nocturnal dyspnea, rapid heart rate, syncope or other Respiratory/Chest Respiratory/Chest: Denies cough, dyspnea, excessive phlegm production, hemoptysis, productive cough, shortness of breath at rest, shortness of breath with exertion, wheezing or other Gastrointestinal Gastrointestinal: Denies abdominal pain, coffee ground emesis, constipation, diarrhea, dyspepsia, hematemesis, hematochezia, loose stools, melena, nausea, vomiting or other Genitourinary Genitourinary: Denies burning urination, difficulty urinating, dysuria, hematuria, nocturia, urinary frequency, urinary hesitancy, urinary incontinence, urinary urgency or other Musculoskeletal Musculoskeletal: Denies arthralgias, back pain, joint pain, joint stiffness, joint swelling, myalgias, neck pain or other Neurologic Neurologic: Denies abnormal gait, abnormal speech, confusion, disequilibrium, dizziness, focal weakness, headache(s), numbness, paresthesias, seizure-like activity, seizures, syncope, tingling, tremor(s) or other Psychiatric Psychiatric: Denies anxiety, depression, homicidal ideation, suicidal ideation or other Endocrine Endocrinology: Denies change in body appearance, cold intolerance, excessive sweating, heat intolerance, polydipsia, polyuria or other Hematologic/Lymphatic Hematologic/Lymphatic: Denies anemia, easy bleeding, easy bruising, lymphadenopathy or other Allergic/Immunologic Allergic/Immunologic: Denies rhinitis, hives, eczemia, asthma or other Vital Signs Vital Signs Vital Signs: 10/21/21 12:56 10/21/21 13:15 10/21/21 13:20 Temperature 97.2 F L Temperature Source Temporal Pulse Rate 84 Pulse Rate [Lying] Pulse Rate [Sitting (for 1 minute prior to obtaining)] Pulse Rate [Standing (for 1 minute prior to obtaining)] Respiratory Rate 18 Respiratory Effort Normal Non-Labored Blood Pressure 163/67 H Blood Pressure [Lying] Blood Pressure [Sitting (for 1 minute prior to obtaining)] Blood Pressure [Standing (for 1 minute prior to obtaining)] Blood Pressure Mean 99 Blood Pressure Mean [Lying] Blood Pressure Mean [Sitting (for 1 minute prior to obtaining)] Blood Pressure Mean [Standing (for 1 minute prior to obtaining)] Pulse Ox 96 90 Oxygen Delivery Method Room Air Nasal Cannula Oxygen Flow Rate (L/min) 2 10/21/21 13:25 10/21/21 13:36 10/21/21 14:57 Temperature Temperature Source Pulse Rate 79 Pulse Rate [Lying] 94 Pulse Rate [Sitting (for 1 minute prior to obtaining)] 100 Pulse Rate [Standing (for 1 minute prior to obtaining)] 98 Respiratory Rate 20 H Respiratory Effort Blood Pressure Blood Pressure [Lying] 150/64 H Blood Pressure [Sitting (for 1 minute prior to obtaining)] 150/63 H Blood Pressure [Standing (for 1 minute prior to obtaining)] 146/70 H Blood Pressure Mean Blood Pressure Mean [Lying] 92 Blood Pressure Mean [Sitting (for 1 minute prior to obtaining)] 92 Blood Pressure Mean [Standing (for 1 minute prior to obtaining)] 95 Pulse Ox 95 Oxygen Delivery Method Nasal Cannula Oxygen Flow Rate (L/min) 2 10/21/21 14:58 10/21/21 15:02 10/21/21 15:19 Temperature 98 F Temperature Source Temporal Pulse Rate 92 Pulse Rate [Lying] Pulse Rate [Sitting (for 1 minute prior to obtaining)] Pulse Rate [Standing (for 1 minute prior to obtaining)] Respiratory Rate 20 H Respiratory Effort Blood Pressure 146/69 H Blood Pressure [Lying] Blood Pressure [Sitting (for 1 minute prior to obtaining)] Blood Pressure [Standing (for 1 minute prior to obtaining)] Blood Pressure Mean 94 Blood Pressure Mean [Lying] Blood Pressure Mean [Sitting (for 1 minute prior to obtaining)] Blood Pressure Mean [Standing (for 1 minute prior to obtaining)] Pulse Ox 86 91 94 Oxygen Delivery Method Room Air Nasal Cannula Nasal Cannula Oxygen Flow Rate (L/min) 2 2 Weight Weight: 177 lb Body Mass Index (BMI) 27.7 Physical Exam Const alert and oriented x3 General Appearance: cooperative HEENT head/scalp atraumatic and hearing grossly normal bilaterally Eyes PERRL, EOMs intact bilaterally and conjunctivae normal Neck no lymphadenopathy, supple and no JVD Resp normal respiratory effort, no retractions and no use of accessory muscles Auscultation: diminished lung sounds Cardio regular rate, regular rhythm, no murmurs and no JVD GI normal to inspection, nondistended, normoactive bowel sounds Extremity normal to inspection Skin no rashes or lesions noted Neuro CN's II-XII intact bilaterally Psych affect normal Results Lab / Micro Data Result Diagrams: 10/21/21 13:27 10/21/21 13:27 Labs: Laboratory Results - last 24 hr 10/21/21 13:27: WBC 10.2, RBC 5.29, Hgb 16.6 H, Hct 52.6, MCV 99.4 H, MCH 31.4, MCHC 31.6 L, RDW Std Deviation 52.5 H, RDW Coeff of Francisco 14.2, Plt Count 159, MPV 10.7, Immature Gran % (Auto) 0.300, Neut % (Auto) 81.0 H, Lymph % (Auto) 12.4 L, Posey % (Auto) 4.9, Eos % (Auto) 1.2, Baso % (Auto) 0.2, Absolute Neuts (auto) 8.2 H, Absolute Lymphs (auto) 1.26, Nucleated RBC % 0 10/21/21 13:27: Sodium 142, Potassium 4.1, Chloride 109 H, Carbon Dioxide 30.0, Anion Gap 3 L, BUN 11, Creatinine 0.89, Estim Creat Clear Calc 74.27, Est GFR (MDRD) Af Amer 110, Est GFR (MDRD) Non-Af 91, BUN/Creatinine Ratio 12.4, Glucose 103, Calcium 9.1, Troponin I High Sens < 3 L 10/21/21 13:37: D-Dimer Quant (PE/DVT) 1.00 H* Radiology Impression Chest X-Ray 10/21/21 13:44 IMPRESSION: No active pulmonary disease. Electronically Signed: Tito Diggs MD at 14:01 EDT , Chest CTA 10/21/21 14:11 IMPRESSION: 1. No evidence of pulmonary embolism or aortic dissection. 2. Left upper lobe bulla with adjacent stranding/scarring extending to the pleural surface could be due to pleural thickening. Follow-up examination 3 months is recommended. 3. Otherwise no mass, adenopathy or focal acute infiltrate. Electronically Signed: Tito Diggs MD at 15:03 EDT , Assessment & Plan Assessment/Plan (1) Hypoxia: (2) Dizziness: (3) COPD exacerbation: PLAN: Patient is a 66-year-old male who presents to the ED at [facility] on 10/21/2021 with a chief complaint of hypoxia. Patient will be admitted for evaluation and management of acute COPD exacerbation. 1) acute hypoxia secondary to acute on chronic COPD exacerbation Patient with observed hypoxia in the ED, currently requiring 2 L to sat at 98%. Past medical history is significant for COPD as well as a 40-year smoking history, although patient reports that he no longer smokes. Patient denies any recent illness or infectious symptoms. Chest x-ray obtained and did not demonstrate any acute cardiopulmonary process although lungs did appear hyperexpanded consistent with emphysematous change. CT-A negative for acute PE. Plan; admit to MedSurg, initiate IV Solu-Medrol, initiate bronchodilators, supplemental O2 as needed, incentive spirometry encouraged, antibiotics not indicated at this time, CBC and BMP in a.m. 2) orthostatic hypotension Patient initially presented to the ED for evaluation of blurry vision with lightheadedness. Orthostatic vitals positive in the ED. Likely due to poor oral intake. We will continue IV fluids. 3) DM2 Hold oral home diabetic regimen. Continue home insulin regimen. Initiate Accu-Cheks with sliding scale insulin. 4) history of stroke Patient with left MCA stroke in August of this year. Does not display or complain of any focal neurological deficits. On low-dose statin and aspirin regimen, will continue. DVT prophylaxis - Lovenox Patient seen by Ja Bhandari PA-C, under the supervision of Dr. Martinez. Time spent on patient care: 25 minutes. Documented by User: Dr. 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 Stroke/cerebrovascular accident Tobacco dependence in remission Uncontrolled type 2 diabetes mellitus Home Medications aspirin 81 mg PO BREAKFAST #0 tab 09/21/21 [Rx Last Taken Unknown] doxazosin 2 mg PO QHS #30 tab 09/21/21 [Rx Last Taken Unknown] empagliflozin [Jardiance] 25 mg PO DAILY #30 tab 09/21/21 [Rx Last Taken Unknown] metoprolol tartrate 12.5 mg PO BID #30 tab 09/21/21 [Rx Last Taken Unknown] rosuvastatin 10 mg PO QHS #30 tab 09/21/21 [Rx Last Taken Unknown] albuterol sulfate 2 puff INHALATION Q4H PRN #8.5 g 09/22/21 [Rx Last Taken Unknown] fluticasone furoate-vilanterol 1 inh INHALATION Q24H #60 ea 09/22/21 [Rx Last Taken Unknown] inhalational spacing device [Aerochamber MV] #1 ea 09/22/21 [Rx Last Taken Unknown] insulin aspart U-100 [Novolog Flexpen U-100 Insulin] 12 unit SUBCUT TID 10/21/21 [History Last Taken Unknown] insulin glargine [Basaglar KwikPen U-100 Insulin] 28 unit SUBCUT DINNER 10/21/21 [History Last Taken Unknown] Allergy/AdvReac Type Severity Reaction Status Date / Time No Known Allergies Allergy Verified 10/21/21 12:57 Family History (Updated 10/21/21 @ 15:53 by Ja CAI) Mother Depression Suicide Father Heart disease Myocardial infarction Other Diabetes Hypertension Surgical History History of appendectomy Social History household members: spouse number of children: 1 current occupational status: retired Smoking Status: Former smoker how long ago did patient quit smoking: he quit smoking at least 20 years ago alcohol intake: current details: occasional substance use type: does not use Results Lab / Micro Data Result Diagrams: 10/21/21 13:27 10/21/21 13:27 Charges/Coding Addendum Addendum: Dr. Martinez: I personally reviewed the chart and examined the patient, and agree with the above findings. 66-year-old male with a history of COPD, diabetes, hypertension and cholesterol presented to the hospital with dizziness. While here he was found to have an elevated hemoglobin but his orthostatic vital signs were unremarkable and his renal function was normal. He states that he drinks water but that his urine is also concentrated. He developed a dizziness and then had an episode of nausea and vomiting this morning. When he presented to the ER he was given a breathing treatment because he was having some wheezing after the breathing treatment he was found to be hypoxic down to 86% on room air so was started on 2 L of oxygen. He feels better after the breathing treatment as well as the IV fluids that he has been receiving in the ER. We will continue with IV fluids and start him steroids and breathing treatments. Time spent in all aspects of patient care: 45 minutes Visit Charges Inpatient E&M: 17480 Init Hosp L3
[2021-10-21 17:11] LABS: Bedside Glucose 91 mg/dL (74-106)
[2021-10-21] MEDS: 0.9% Normal Saline 1,000 ML 100 ML IV (17:26)
[2021-10-21] MEDS: Insulin Glargine-YFGN 100 UNIT/ML Pen 28 UNIT SC (17:28)
[2021-10-21] MEDS: Insulin Lispro 100 UNIT/ML INSULN.PEN 12 UNIT SC (17:30)
[2021-10-21] MEDS: Metoprolol Tartrate 25 MG Tablet 12.5 MG PO (21:37)
[2021-10-21] MEDS: Atorvastatin Calcium 20 MG Tablet PO (21:37)
[2021-10-21] MEDS: Doxazosin 1 MG Tablet 2 MG PO (21:37)
[2021-10-21] MEDS: Insulin Lispro 100 UNIT/ML INSULN.PEN SC (21:38)
[2021-10-21] MEDS: 0.9% Saline Lock 10 ML Syringe IV (21:47)
[2021-10-21 23:10] LABS: Bedside Glucose 216 mg/dL (74-106)
[2021-10-22] VITALS (17 sets, daily range): BP systolic 118–133; BP diastolic 54–64; PULSE 77–114; RESP 18–20; TEMP 36.3–36.6; O2SAT 87–97
[2021-10-22] MEDS: 0.9% Normal Saline 1,000 ML 100 ML IV ×3 (01:09→19:32)
[2021-10-22 06:58] LABS: Absolute Lymphocyte Count 0.93 X10^3/uL (0.83-4.51); Absolute Neutrophil Count 7.5 X10^3/uL (2.0-7.7); Basophil# 0.01 X10^3/uL; Basophil% 0.1 % (0-1); Hematocrit 50.4 % (40-54); Hemoglobin 15.8 g/dL (13.0-16.5); Lymphocyte # 0.93 X10^3/ul (0.83-4.51); Lymphocyte % 10.8 % (19-41); Mean Corp Hgb Conc 31.3 g/dL (32-36); Mean Corpuscular Volume 98.8 fL (80-94); Mean Platelet Vol. 11.9 fl (6.2-12.0); Monocyte# 0.14 X10^3/uL; Monocyte% 1.6 % (0-10); NRBC Flagged by Analyzer 0 % (0-5); Neutrophil # 7.46 X10^3/uL (2.7-7.7); Platelet Count 164 K/mm3 (150-450); RBC Distribution Width CV 13.8 % (11.6-14.6); RBC Distribution Width SD 50.4 fl (35.1-43.9); White Blood Count 8.6 K/mm3 (4.4-11.0)
[2021-10-22] MEDS: Ipratropium/Albuterol Sulfate 3 ML AMPUL.NEB INHALATION ×4 (07:18→20:01)
[2021-10-22 07:37] LABS: Anion Gap 5 (5-15); BUN 10 mg/dL (7-18); BUN/Creat Ratio 17.6 RATIO (10-20); Chloride 109 mmol/L (98-107); Creatinine, Serum 0.57 mg/dL (0.70-1.30); EST Glomerular Filtration Rate 151 mL/min (>60); Est Glom Filt Rate - Afr Amer 183 mL/min (>60); Glucose 117 mg/dL (74-106); Potassium 4.6 mmol/L (3.5-5.1); Sodium Level 140 mmol/L (136-145)
[2021-10-22] MEDS: Aspirin 81 MG TAB.CHEW PO (07:59)
[2021-10-22] MEDS: Metoprolol Tartrate 25 MG Tablet 12.5 MG PO ×2 (07:59→21:09)
[2021-10-22] MEDS: Enoxaparin 40 MG/0.4 ML Syringe SC (08:01)
--- NOTE | 2021-10-22 09:58 | PN.HOSP_ITS ---
Documented by User: Ja CAI 10/22/21 10:04 Subjective Subjective Patient is a 66-year-old male comfortably resting in a chair, alert and orient x3. Patient reports that his shortness of breath and blurry vision have improved from yesterday. Denies development of any new symptoms overnight. Does not appear in acute distress. Objective Data Objective Data Vital Signs: Vital Signs Temp Pulse Resp BP Pulse Ox 97.7 F L 113 H 20 H 124/55 H 94 10/22/21 07:55 10/22/21 07:59 10/22/21 07:55 10/22/21 07:55 10/22/21 08:15 Oxygen Flow Rate (L/min) 3 Oxygen Delivery Method Nasal Cannula Weight: 177 lb Body Mass Index (BMI) 28.5 Intake & Output: Intake and Output for Last 24 Hours 10/20/21 10/21/21 10/22/21 23:59 23:59 23:59 Intake Total 804.17 / 804.17 891.67 / 891.67 Output Total 850 / 850 250 / 250 Balance -45.83 / -45.83 641.67 / 641.67 Lab / Micro Data Result Diagrams: 10/22/21 05:45 10/22/21 05:45 Labs: Laboratory Results - last 24 hr 10/21/21 13:27: WBC 10.2, RBC 5.29, Hgb 16.6 H, Hct 52.6, MCV 99.4 H, MCH 31.4, MCHC 31.6 L, RDW Std Deviation 52.5 H, RDW Coeff of Francisco 14.2, Plt Count 159, MPV 10.7, Immature Gran % (Auto) 0.300, Neut % (Auto) 81.0 H, Lymph % (Auto) 12.4 L, Otero % (Auto) 4.9, Eos % (Auto) 1.2, Baso % (Auto) 0.2, Absolute Neuts (auto) 8.2 H, Absolute Lymphs (auto) 1.26, Nucleated RBC % 0 10/21/21 13:27: Sodium 142, Potassium 4.1, Chloride 109 H, Carbon Dioxide 30.0, Anion Gap 3 L, BUN 11, Creatinine 0.89, Estim Creat Clear Calc 74.27, Est GFR (MDRD) Af Amer 110, Est GFR (MDRD) Non-Af 91, BUN/Creatinine Ratio 12.4, Glucose 103, Calcium 9.1, Troponin I High Sens < 3 L 10/21/21 13:37: D-Dimer Quant (PE/DVT) 1.00 H* 10/21/21 16:56: POC Glucose 91 10/21/21 21:32: POC Glucose 216 H 10/22/21 05:45: WBC 8.6, RBC 5.10, Hgb 15.8, Hct 50.4, MCV 98.8 H, MCH 31.0, MCHC 31.3 L, RDW Std Deviation 50.4 H, RDW Coeff of Francisco 13.8, Plt Count 164, MPV 11.9, Immature Gran % (Auto) 0.500, Neut % (Auto) 87.0 H, Lymph % (Auto) 10.8 L, Otero % (Auto) 1.6, Eos % (Auto) 0.0, Baso % (Auto) 0.1, Absolute Neuts (auto) 7.5, Absolute Lymphs (auto) 0.93, Nucleated RBC % 0 10/22/21 05:45: Sodium 140, Potassium 4.6, Chloride 109 H, Carbon Dioxide 26.0, Anion Gap 5, BUN 10, Creatinine 0.57 L, Estim Creat Clear Calc 63.80, Est GFR (MDRD) Af Amer 183, Est GFR (MDRD) Non-Af 151, BUN/Creatinine Ratio 17.6, Glucose 117 H, Calcium 9.0 Micro: Microbiology 10/21/21 15:20 Nasal Secretion SARS-CoV-2 Antigen (Rapid) - Final Radiography Diagnostic Testing: Radiology Impression Chest X-Ray 10/21/21 13:44 IMPRESSION: No active pulmonary disease. Electronically Signed: Tito Diggs MD at 14:01 EDT , Chest CTA 10/21/21 14:11 IMPRESSION: 1. No evidence of pulmonary embolism or aortic dissection. 2. Left upper lobe bulla with adjacent stranding/scarring extending to the pleural surface could be due to pleural thickening. Follow-up examination 3 months is recommended. 3. Otherwise no mass, adenopathy or focal acute infiltrate. Electronically Signed: Tito Diggs MD at 15:03 EDT , Physical Exam Const alert, oriented x3 and no apparent distress HEENT head/scalp atraumatic and moist oral mucous membranes Head and Scalp: normocephalic Eyes PERRL, EOMs intact bilaterally and conjunctivae normal Neck no lymphadenopathy, supple and no JVD Resp normal respiratory effort, no retractions and no use of accessory muscles Cardio regular rate, regular rhythm and no JVD GI normal to inspection, nondistended, normoactive bowel sounds Extremity normal to inspection Skin no rashes or lesions noted Neuro CN's II-XII intact bilaterally Psych affect normal Assessment & Plan Assessment/Plan (1) Hypoxia: (2) Dizziness: (3) COPD exacerbation: PLAN: Day 1 Discharge planning: Current plan is for patient to discharge home when medically ready. 1) acute hypoxia secondary to acute on chronic COPD exacerbation Still requiring 3 L via nasal cannula to sat at 94%, on room air at baseline. We will continue IV Solu-Medrol, breathing treatments and supplemental O2, wean as tolerated, incentive spirometry encouraged, will obtain ambulatory pulse ox in a.m. 2) orthostatic hypotension Lightheadedness and blurry vision have improved from admission. Orthostatic vitals positive in the ED on admission, likely due to poor oral intake. 3) DM2 Hold oral home diabetic regimen. Continue home insulin regimen. Initiate Accu- Cheks with sliding scale insulin. 4) history of stroke Patient with left MCA stroke in August of this year. Does not display or complain of any focal neurological deficits. On low-dose statin and aspirin regimen, will continue. DVT prophylaxis - Lovenox Patient seen by Ja Bhandari PA-C, under the supervision of Dr. Martinez. Time spent on patient care: 9 minutes. Documented by User: Dr. Rasheed Martinez MD 10/22/21 12:44 Objective Data Lab / Micro Data Result Diagrams: 10/22/21 05:45 10/22/21 05:45 Charges/Coding Addendum Addendum: Dr. Martinez: I personally reviewed the chart and examined the patient, and agree with the above findings. 66-year-old male with a history of COPD, diabetes, hypertension and cholesterol presented to the hospital with dizziness. While here he was found to have an elevated hemoglobin but his orthostatic vital signs were unremarkable and his renal function was normal. He states that he drinks water but that his urine is also concentrated. He developed a dizziness and then had an episode of nausea and vomiting this morning. When he presented to the ER he was given a breathing treatment because he was having some wheezing after the breathing treatment he was found to be hypoxic down to 86% on room air so was started on 2 L of oxygen. He feels better after the breathing treatment as well as the IV fluids that he has been receiving in the ER. We will continue with IV fluids and start him steroids and breathing treatments. Time spent in all aspects of patient care: 45 minutes 10/22/2021: Feels much better today, still requiring 2 to 3 L nasal cannula to maintain his oxygen sats. He denies any significant dizziness or lightheadedness today, will continue with IV fluids. Appears less dehydrated with improved hemoglobin as well as creatinine. Continue with steroids as well as breathing treatments for what appears to also be a COPD exacerbation with continued wheezing on physical exam. Clinical time spent in all aspects of patient care: 18 minutes Visit Charges Inpatient E&M: 55992 Subs Hosp L2
[2021-10-22] MEDS: Insulin Lispro 100 UNIT/ML INSULN.PEN 12 UNIT SC ×2 (11:42→16:59)
[2021-10-22] MEDS: Insulin Lispro 100 UNIT/ML INSULN.PEN SC ×3 (11:42→21:08)
[2021-10-22 12:06] LABS: Bedside Glucose 247 mg/dL (74-106)
[2021-10-22] MEDS: Glucerna Shake 120 ML LIQUID PO ×2 (14:29→16:58)
[2021-10-22] MEDS: 0.9% Saline Lock 10 ML Syringe IV (14:29)
[2021-10-22] MEDS: Insulin Glargine-YFGN 100 UNIT/ML Pen 28 UNIT SC (16:59)
[2021-10-22 17:21] LABS: Bedside Glucose 305 mg/dL (74-106)
[2021-10-22] MEDS: Doxazosin 1 MG Tablet 2 MG PO (21:08)
[2021-10-22] MEDS: Atorvastatin Calcium 20 MG Tablet PO (21:09)
[2021-10-22 22:11] LABS: Bedside Glucose 269 mg/dL (74-106)
[2021-10-23] VITALS (9 sets, daily range): BP systolic 130–141; BP diastolic 55–67; PULSE 84–112; RESP 18–21; TEMP 36.6; O2SAT 88–97
[2021-10-23] MEDS: 0.9% Normal Saline 1,000 ML 100 ML IV (05:12)
[2021-10-23] MEDS: Ipratropium/Albuterol Sulfate 3 ML AMPUL.NEB INHALATION (07:11)
[2021-10-23] MEDS: Insulin Lispro 100 UNIT/ML INSULN.PEN SC ×2 (08:05→11:50)
[2021-10-23] MEDS: Insulin Lispro 100 UNIT/ML INSULN.PEN 12 UNIT SC (08:05)
[2021-10-23] MEDS: Aspirin 81 MG TAB.CHEW PO (08:06)
[2021-10-23] MEDS: Enoxaparin 40 MG/0.4 ML Syringe SC (08:06)
[2021-10-23] MEDS: Metoprolol Tartrate 25 MG Tablet 12.5 MG PO (08:07)
[2021-10-23 09:31] LABS: Bedside Glucose 175 mg/dL (74-106)
--- NOTE | 2021-10-23 10:30 | CASEMGMT ---
RN NEIL Face to Face with patient for initial transition planning/care coordination assessment. RN CM introduced self and role at [facility]. Patient sitting in chair, alert and oriented. Patient willing to participate in assessment and is able to answer all questions appropriately. Care providers, pharmacy, and demographics verified. Patient wishes to discharge home, denies need for home health at this time. Patient states he has no further needs or concerns at this time. CM to follow for discharge planning needs that may arise. PCP: Corey Specialists: none [facility] Prescription Benefit: yes Living Will/HPOA: yes, Nell Blandon LNOK: , son Living Arrangements: Patient lives with in a single story home with 3 steps and railing to enter the home. Patient states he is independent at home. Transportation: DME/HHC: Patient states he has shower chair, grab bars, cane, walker, pulse ox, and home oxygen at 2lpm at only through [employer]. [employer] states he has had [facility] HHC in the past. No previous SNF Disposition Plan: Patient to discharge home with family support and follow-up plans in place. Will monitor for HHC pending progress with therapy. Jessica PASTOR, RN, CM
--- NOTE | 2021-10-23 10:44 | PCM.DC ---
Discharge Instructions Diet Discharge Diet: No restrictions Activity Discharge Activity: Return to Normal Activity Weight Bearing Status: Weight bearing as tolerated Dressing / Incision Call your doctor if you observe: Fever of 101 or Higher, Numbness or Tingling, Shortness of breath, Dizziness, Chest pain, Increased palpitations (irregular heartbeat) and Calf discomfort Follow Up Care Please Follow Up With: Primary care provider When: Within the next two weeks. Test Results: Test results from this visit will be discussed in further detail at your follow-up appointment, if applicable. Discharge Plan Admission Admit Date/Time: 10/21/21 15:19 Primary Reason for Your Visit: Shortness of breath Attending Provider: Rasheed Martinez Primary Care Provider: Toney Nicole Instructions Additional Instructions / Restrictions: * Start wearing oxygen at home day & night to help with your COPD. Discharge Orders/Prescriptions Prescriptions: New prednisone 20 mg tablet 40 mg PO DAILY Qty: 14 RF: 0 Continued doxazosin 1 mg Tablet 2 mg PO QHS Qty: 30 RF: 0 aspirin 81 mg Tablet,Chewable 81 mg PO BREAKFAST Qty: 0 RF: 0 Jardiance 25 mg Tablet 25 mg PO DAILY Qty: 30 RF: 0 rosuvastatin 10 mg Tablet 10 mg PO QHS Qty: 30 RF: 0 metoprolol tartrate 25 mg Tablet 12.5 mg PO BID Qty: 30 RF: 0 fluticasone furoate-vilanterol 100-25 mcg/dose blister with device 1 inh inhalation Q24H Qty: 60 RF: 0 albuterol sulfate 90 mcg/actuation HFA aerosol inhaler 2 puff inhalation Q4H PRN (Reason: shortness of breath or wheezing) Qty: 8.5 RF: 1 (DME) Aerochamber MV Spacer See Rx Instructions .ROUTE .MEDSUPPLY Qty: 1 RF: 0 insulin aspart U-100 [Novolog Flexpen U-100 Insulin] 100 unit/mL (3 mL) insulin pen 12 unit SUBCUT TID RF: 0 Basaglar KwikPen U-100 Insulin 100 unit/mL (3 mL) insulin pen 28 unit SUBCUT DINNER RF: 0 Referrals / Follow Up: Toney Nicole MD [Primary Care Provider] - Within 2 Weeks Disposition Disposition (needs filled in before D/C Order can be placed): Home, Self Care
--- NOTE | 2021-10-23 11:24 | CASEMGMT ---
Pt qualifies for increased O2 needs at home. Pt does not have portability. Tank taken from stock. Faxed [employer] updated O2 orders.
--- NOTE | 2021-10-23 12:27 | DS.PCM_ITS ---
Documented by User: Ja CAI 10/23/21 12:38 Providers Date of Admission: 10/21/21 Date of Discharge: 10/23/21 Primary Care Physician: Dr. Toney Nicole MD Reason For Visit: COPD AND DEHYDRATION Diagnosis Discharge Diagnosis (1) Hypoxia: Status: Acute Code(s): R09.02 - Hypoxemia (2) Dizziness: Status: Acute Code(s): R42 - Dizziness and giddiness (3) COPD exacerbation: Status: Chronic Code(s): J44.1 - Chronic obstructive pulmonary disease with (acute) exacerbation Medications at Discharge Home Medications Jardiance 25 mg PO DAILY #30 tab 09/21/21 aspirin 81 mg PO BREAKFAST #0 tab 09/21/21 doxazosin 2 mg PO QHS #30 tab 09/21/21 metoprolol tartrate 12.5 mg PO BID #30 tab 09/21/21 rosuvastatin 10 mg PO QHS #30 tab 09/21/21 Aerochamber MV #1 ea 09/22/21 albuterol sulfate 2 puff INHALATION Q4H PRN #8.5 g 09/22/21 fluticasone furoate-vilanterol 1 inh INHALATION Q24H #60 ea 09/22/21 Basaglar KwikPen U-100 Insulin 28 unit SUBCUT DINNER 10/21/21 insulin aspart U-100 [Novolog Flexpen U-100 Insulin] 12 unit SUBCUT TID 10/21/21 prednisone 40 mg PO DAILY #14 tab 10/23/21 Hospital Course Summary of Care Provided Minutes Spent on Discharge: 25 Hospital Course: Patient is a 66-year-old male who was admitted to [facility] on 10/21/2021 for evaluation and management of shortness of breath as well as dehydration. Patient's shortness of breath was the result of an acute on chronic COPD exacerbation, and his orthostatic hypotension was the result of dehydration secondary to poor oral intake. Patient's lightheadedness and dizziness from orthostatic hypotension resolved with fluids. Patient was placed on supplemental oxygen, bronchodilators and steroids. Patient's breathing improved, however patient still did require 2 L to maintain oxygen saturations. Patient was provided a home oxygen prescription. We will continue home COPD regimen, initiate prednisone 40 mg for 1 week and have patient follow- up with primary care provider. Patient seen by Ja Bhandari PA-C, under the supervision of Dr. Martinez. Time spent on patient care: 20 minutes. Medical Records Data Medical Nutrition Assessment Dietitian: Malnutrition Criteria Met Start: 10/22/21 10:15 Freq: Status: Active Protocol: Document 10/22/21 10:15 GEOVANNA (Rec: 10/22/21 10:15 GEOVANNA [id number]) Nutrition Malnutrition Evidence of Malnutrition Exists Yes Malnutrition (severe): Acute Illness/Injury Evidenced By Suboptimal Energy Intake ( Severe),Weight Loss (Severe) Clinical Problem Acute Disease or Injury Related Malnutrition Etiology related to cva 09/12 at which time pt was having difficulty chewing/swallowing and not having much of an appetite making it difficult for pt to consume adequate nutrition to meet est nutritional needs Signs/Symptoms as evidenced by <50% po intake and 11.5% wt loss in past 6-8 wks. Status Active Problem Recommendation Dietitian Recommendations/Changes Will change diet to CHO Control w/ softer foods - once po intake improves consider addition of Cardiac to diet d/ t pmhx Will order 4 oz glucerna shake 4x/day w/ medpass for increased nutrition if consumed. Weight / BMI Weight Weight: 177 lb Body Mass Index (BMI) 28.5 ABG / Lab / Microbiology Data Result Diagrams: 10/22/21 05:45 10/22/21 05:45 Laboratory: Laboratory Results - last 24 hr 10/22/21 16:57: POC Glucose 305 H 10/22/21 21:03: POC Glucose 269 H 10/23/21 07:55: POC Glucose 175 H Microbiology: Microbiology 10/21/21 15:20 Nasal Secretion SARS-CoV-2 Antigen (Rapid) - Final D/C Instructions Discharge Diet: No restrictions Weight Bearing Status: Weight bearing as tolerated Call your doctor if you observe: Fever of 101 or Higher, Numbness or Tingling, Shortness of breath, Dizziness, Chest pain, Increased palpitations (irregular heartbeat) and Calf discomfort Please Follow Up With: Primary care provider When: Within the next two weeks. Meaningful Use Info Meaningful Use Diagnoses (Choose all that apply): None applicable Discharge Plan Admission Admit Date/Time: 10/21/21 15:19 Primary Reason for Your Visit: Shortness of breath Attending Provider: Rasheed Martinez Primary Care Provider: Toney Nicole Instructions Additional Instructions / Restrictions: * Start wearing oxygen at home day & night to help with your COPD. Discharge Orders/Prescriptions Prescriptions: New prednisone 20 mg tablet 40 mg PO DAILY Qty: 14 RF: 0 Continued doxazosin 1 mg Tablet 2 mg PO QHS Qty: 30 RF: 0 aspirin 81 mg Tablet,Chewable 81 mg PO BREAKFAST Qty: 0 RF: 0 Jardiance 25 mg Tablet 25 mg PO DAILY Qty: 30 RF: 0 rosuvastatin 10 mg Tablet 10 mg PO QHS Qty: 30 RF: 0 metoprolol tartrate 25 mg Tablet 12.5 mg PO BID Qty: 30 RF: 0 fluticasone furoate-vilanterol 100-25 mcg/dose blister with device 1 inh inhalation Q24H Qty: 60 RF: 0 albuterol sulfate 90 mcg/actuation HFA aerosol inhaler 2 puff inhalation Q4H PRN (Reason: shortness of breath or wheezing) Qty: 8.5 RF: 1 (DME) Aerochamber MV Spacer See Rx Instructions .ROUTE .MEDSUPPLY Qty: 1 RF: 0 insulin aspart U-100 [Novolog Flexpen U-100 Insulin] 100 unit/mL (3 mL) insulin pen 12 unit SUBCUT TID RF: 0 Basaglar KwikPen U-100 Insulin 100 unit/mL (3 mL) insulin pen 28 unit SUBCUT DINNER RF: 0 Referrals / Follow Up: Toney Nicole MD [Primary Care Provider] - Within 2 Weeks Disposition Disposition (needs filled in before D/C Order can be placed): Home, Self Care Documented by User: Dr. Rasheed Martinez MD 10/23/21 14:02 Providers Date of Admission: 10/21/21 Reason For Visit: COPD AND DEHYDRATION Medications at Discharge Home Medications Jardiance 25 mg PO DAILY #30 tab 09/21/21 aspirin 81 mg PO BREAKFAST #0 tab 09/21/21 doxazosin 2 mg PO QHS #30 tab 09/21/21 metoprolol tartrate 12.5 mg PO BID #30 tab 09/21/21 rosuvastatin 10 mg PO QHS #30 tab 09/21/21 Aerochamber MV #1 ea 09/22/21 albuterol sulfate 2 puff INHALATION Q4H PRN #8.5 g 09/22/21 fluticasone furoate-vilanterol 1 inh INHALATION Q24H #60 ea 09/22/21 Basaglar KwikPen U-100 Insulin 28 unit SUBCUT DINNER 10/21/21 insulin aspart U-100 [Novolog Flexpen U-100 Insulin] 12 unit SUBCUT TID 10/21/21 prednisone 40 mg PO DAILY #14 tab 10/23/21 ABG / Lab / Microbiology Data Result Diagrams: 10/22/21 05:45 10/22/21 05:45 Discharge Plan Admission Admit Date/Time: 10/21/21 15:19 Primary Reason for Your Visit: Shortness of breath Attending Provider: Rasheed Martinez Primary Care Provider: Toney Nicole Instructions Additional Instructions / Restrictions: * Start wearing oxygen at home day & night to help with your COPD. Discharge Orders/Prescriptions Prescriptions: New prednisone 20 mg tablet 40 mg PO DAILY Qty: 14 RF: 0 Continued doxazosin 1 mg Tablet 2 mg PO QHS Qty: 30 RF: 0 aspirin 81 mg Tablet,Chewable 81 mg PO BREAKFAST Qty: 0 RF: 0 Jardiance 25 mg Tablet 25 mg PO DAILY Qty: 30 RF: 0 rosuvastatin 10 mg Tablet 10 mg PO QHS Qty: 30 RF: 0 metoprolol tartrate 25 mg Tablet 12.5 mg PO BID Qty: 30 RF: 0 fluticasone furoate-vilanterol 100-25 mcg/dose blister with device 1 inh inhalation Q24H Qty: 60 RF: 0 albuterol sulfate 90 mcg/actuation HFA aerosol inhaler 2 puff inhalation Q4H PRN (Reason: shortness of breath or wheezing) Qty: 8.5 RF: 1 (DME) Aerochamber MV Spacer See Rx Instructions .ROUTE .MEDSUPPLY Qty: 1 RF: 0 insulin aspart U-100 [Novolog Flexpen U-100 Insulin] 100 unit/mL (3 mL) insu jono pen 12 unit SUBCUT TID RF: 0 Soniaglnidia RodriguezikPen U-100 Insulin 100 unit/mL (3 mL) insulin pen 28 unit SUBCUT DINNER RF: 0 Referrals / Follow Up: Toney Nicole MD [Primary Care Provider] - Within 2 Weeks Disposition Disposition (needs filled in before D/C Order can be placed): Home, Self Care Charges/Coding Addendum Addendum: Dr. Martinez: I personally reviewed the chart and examined the patient, and agree with the above findings. 66-year-old male with a history of COPD, diabetes, hypertension and cholesterol presented to the hospital with dizziness. While here he was found to have an elevated hemoglobin but his orthostatic vital signs were unremarkable and his renal function was normal. He states that he drinks water but that his urine is also concentrated. He developed a dizziness and then had an episode of nausea and vomiting this morning. When he presented to the ER he was given a breathing treatment because he was having some wheezing after the breathing treatment he was found to be hypoxic down to 86% on room air so was started on 2 L of oxygen. He feels better after the breathing treatment as well as the IV fluids that he has been receiving in the ER. We will continue with IV fluids and start him steroids and breathing treatments. Time spent in all aspects of patient care: 45 minutes 10/22/2021: Feels much better today, still requiring 2 to 3 L nasal cannula to maintain his oxygen sats. He denies any significant dizziness or lightheadedness today, will continue with IV fluids. Appears less dehydrated with improved hemoglobin as well as creatinine. Continue with steroids as well as breathing treatments for what appears to also be a COPD exacerbation with continued wheezing on physical exam. Clinical time spent in all aspects of patient care: 18 minutes 10/23/2021: Lightheadedness and dizziness is completely resolved, he feels much better today. He still requiring some oxygen but he wants to go home. He did have an ambulatory pulse ox which demonstrated the need of about 2L with ambulation. We will place him on steroids for discharge for COPD exacerbation continue with his inhalers at home. 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 I discussed with him how he needs to increase his p.o. water intake to avoid this in the future. I discussed with him the plan for discharge and he expressed understanding of the risk benefits going home and he would like to go home today. Clinical time spent in all aspects of patient care: 23 minutes Visit Charges Inpatient E&M: [id number] Disch Hosp
[2021-10-23 12:36] LABS: Bedside Glucose 156 mg/dL (74-106)
== END 2021-10-23 11:56 | disposition home or self-care (01) | DRG 190 ==
LOC: ED 15:11 → MS3 15:34
PROVIDERS: Admitting Provider Family Medicine; Emergency Provider Emergency Medicine; PCP Family Medicine; Visit Provider Family Medicine
DX: J44.1 Chronic obstructive pulmonary disease with (acute) exacerbation (principal); E43 Unspecified severe protein-calorie malnutrition; E11.9 Type 2 diabetes mellitus without complications; Z79.4 Long term (current) use of insulin; E86.0 Dehydration; E78.5 Hyperlipidemia, unspecified; I95.1 Orthostatic hypotension; I10 Essential (primary) hypertension; N40.0 Benign prostatic hyperplasia without lower urinary tract symptoms; Z87.891 Personal history of nicotine dependence; Z86.73 Personal history of transient ischemic attack (TIA), and cerebral infarction without residual deficits; Z79.82 Long term (current) use of aspirin; Z79.899 Other long term (current) drug therapy; Z68.27 Body mass index [BMI] 27.0-27.9, adult
CPT/HCPCS: 71045; 71275; 80048; 82962; 84484; 85025; 85379; 87811; 93005; 94640; 94762; 97162; 97165; 97530; 99285; J7030; Q9967; A4216; J2405

== ENCOUNTER → 2021-11-14 | Outpatient (CLI) | payer MEDICARE, OTHER, SELFPAY | END | disposition home or self-care (01) | PROVIDERS: PCP Family Medicine; Visit Provider Nurse Practitioner Acute Care | DX: G47.33 Obstructive sleep apnea (adult) (pediatric) (principal) | CPT/HCPCS: 95811 ==

== ENCOUNTER → 2021-11-17 | Outpatient (CLI) | payer MEDICARE, OTHER, SELFPAY ==
--- NOTE | 2021-11-17 09:23 | ECHOCS_ITS ---
Reason For Study: CEREBRAL INFARCTION Procedure This was a 2D Doppler, Color Flow transthoracic echocardiogram. The study was technically difficult. Contrast injection was performed. Exam performed in department. Left Ventricle Based upon the 2D echocardiographic and contrast enhanced images obtained there appears to be grossly normal left ventricular size, wall motion, and systolic function. The estimated ejection fraction is 65 %. Diastolic function is indeterminate. Right Ventricle Normal RV size. Normal systolic function. Atria Normal left atrium. Normal right atrium. No doppler evidence for ASD. Mitral Valve There is no mitral annular calcification. Normal mitral valve. Trivial mitral valve insufficiency. Tricuspid Valve Normal tricuspid valve. Trivial tricuspid valve insufficiency. Unable to estimate RV systolic pressure/pulmonary artery pressure due to technically difficult study. Aortic Valve Trisinus/trileaflet aortic valve. Mild focal aortic valve calcification. Pulmonic Valve The pulmonic valve is not well visualized. Great Vessels The aortic root is not well visualized. Pericardium/Pleural No pericardial effusion. Medication 22 gauge I.V. with prn adaptor inserted into right arm. Diluted definity 3ml given slow IV push to enhance endocardial definition. MMode/2D Measurements & Calculations LVIDd: 3.1 cm IVSd: 0.59 cm LAV(MOD-bp): 27.1 ml LVIDs: 1.8 cm LVPWd: 0.68 cm RVDd: 3.3 cm FS: 42.0 % LAV(MOD-bp) Indexed: 14.2 ml/m2 LAV(MOD-sp2): 37.5 ml LAV(MOD-sp4): 19.3 ml SV(MOD-sp4): 55.6 ml LVAd ap4: 28.0 cm2 LVAd ap2: 20.9 cm2 LVLd ap4: 7.7 cm LVLd ap2: 6.9 cm EDV(MOD-sp4): 83.7 ml EDV(MOD-sp2): 50.5 ml EDV(sp4-el): 87.1 ml EDV(sp2-el): 53.4 ml LVAs ap4: 15.3 cm2 LVAs ap2: 11.7 cm2 LVLs ap4: 6.6 cm LVLs ap2: 6.6 cm ESV(MOD-sp4): 28.1 ml ESV(MOD-sp2): 17.1 ml ESV(sp4-el): 30.1 ml ESV(sp2-el): 17.7 ml EF(MOD-sp4): 66.4 % EF(MOD-sp2): 66.0 % EF(sp4-el): 65.4 % SV(MOD-sp2): 33.3 ml SV(sp4-el): 57.0 ml LA A4 area: 11.2 cm2 RA A4 area: 8.4 cm2 Doppler Measurements & Calculations MV E max javi: 75.5 cm/sec Lat Peak E' Javi: 5.9 cm/sec Med Peak E' Javi: 8.3 cm/sec MV A max javi: 78.1 cm/sec E/E' lat: 12.8 E/E' med: 9.1 MV E/A: 0.97 Ao V2 max: 100.9 cm/sec LV V1 max: 86.0 cm/sec PA V2 max: 125.0 cm/sec Ao max P.1 mmHg LV V1 max P.0 mmHg ECHO/Echo Complete W/ Contrast Interpretation Summary The study was technically difficult. Contrast injection was performed. Based upon the 2D echocardiographic and contrast enhanced images obtained there appears to be grossly normal left ventricular size, wall motion, and systolic function. The estimated ejection fraction is 65 %. Trivial mitral valve insufficiency. Trivial tricuspid valve insufficiency. Mild focal aortic valve calcification. Unable to estimate RV systolic pressure/pulmonary artery pressure due to techni osman difficult study. Diastolic function is indeterminate. Comment: Cardiac rhythm: Based upon the cardiac rhythm recording during the tra nsthoracic echocardiogram underlying atrial flutter cannot necessarily be excluded. Clinic al correlation is recommended. Ordering Physician: Celia Hernandez Referring Physician: Celia Hernandez Performed By: Helene Beltrán RCS
== END | disposition home or self-care (01) ==
LOC: CVS 09:22
PROVIDERS: PCP Family Medicine; Referring Provider Nurse Practitioner Acute Care; Visit Provider Nurse Practitioner Acute Care
DX: I63.512 Cerebral infarction due to unspecified occlusion or stenosis of left middle cerebral artery (principal)
CPT/HCPCS: 93306; Q9957; A4216; C8929

== ENCOUNTER → 2022-01-17 | Outpatient (CLI) | payer OTHER, SELFPAY ==
--- NOTE | 2022-01-17 12:35 | PFT ---
INTRODUCTION: The patient is a 66-year-old male that presents for pulmonary function studies secondary to a diagnosis of dyspnea. Respiratory therapy reported good patient effort. Bronchodilators were used during testing. INTERPRETATION: Forced expiration spirometry demonstrates the presence of a severe large airways obstructive ventilatory defect. There was a significant response to aerosolized bronchodilators. Spirograms are of good quality but do not plateau indicating slow emptying of the lungs. Body plethysmography was performed and revealed an elevated RV to 131% of predicted, indicative of underlying air trapping. Diffusing capacity by single breath CO is reduced at 68% of predicted. IMPRESSION: Partially reversible severe large airways obstructive ventilatory defect with associated air trapping and mild reduction in diffusing capacity.
== END | disposition home or self-care (01) ==
LOC: PSN 07:49
PROVIDERS: PCP Family Medicine; Referring Provider Nurse Practitioner Acute Care; Visit Provider Nurse Practitioner Acute Care
DX: R06.00 Dyspnea, unspecified (principal)
CPT/HCPCS: 94060; 94726; 94729

== ENCOUNTER → 2022-03-14 | Outpatient (CLI) | payer MEDICARE, OTHER, SELFPAY | END | disposition home or self-care (01) | LOC: SL 08:57 | PROVIDERS: PCP Family Medicine; Visit Provider Nurse Practitioner Acute Care | DX: Z46.89 Encounter for fitting and adjustment of other specified devices (principal) ==

== ENCOUNTER → 2022-04-17 | Outpatient (CLI) | payer MEDICARE, OTHER, SELFPAY ==
[2022-04-17 10:43] LABS: Microalbumin,Random Urine 65.3 mg/L (NO RANGE EST.); Microalbumin:Creatinine Ratio 72.1 mg/g CRE (<30 mg/g CRE)
[2022-04-17 10:51] LABS: ALB/GLOB Ratio 1.1 RATIO (0.9-2.4); AST(SGOT) 15 U/L (15-37); Alanine Aminotransfer ALT/SGPT 21 U/L (16-61); Albumin, Serum 3.7 g/dL (3.2-5.0); Alkaline Phosphatase 93 U/L (45-117); Anion Gap 5 (5-15); BUN 10 mg/dL (7-18); BUN/Creat Ratio 13.2 RATIO (10-20); Calcium,Total 9.5 mg/dL (8.5-10.1); Chloride 108 mmol/L (98-107); Cholesterol 123 mg/dL (200); Creatinine, Serum 0.76 mg/dL (0.70-1.30); EST Glomerular Filtration Rate 109 mL/min (>60); Est Glom Filt Rate - Afr Amer 131 mL/min (>60); Globulin 3.4 g/dL (2.2-4.2); Glucose 80 mg/dL (74-106); High Density Lipoprotein 48 mg/dL; Protein, Total 7.1 g/dL (6.4-8.2); Sodium Level 144 mmol/L (136-145)
== END | disposition home or self-care (01) ==
LOC: MFPLAB 09:34
PROVIDERS: PCP Family Medicine; Referring Provider Family Medicine; Visit Provider Family Medicine
DX: E11.9 Type 2 diabetes mellitus without complications (principal); I65.29 Occlusion and stenosis of unspecified carotid artery
CPT/HCPCS: 36415; 80053; 82043; 82465; 82570; 83718

== ENCOUNTER → 2022-08-28 | Outpatient (CLI) | payer MEDICARE, OTHER, SELFPAY ==
--- NOTE | 2022-08-28 08:12 | CDU_ITS ---
Reason For Study: CVA, Bruit Rt. Velocities/BP Lt. Velocities/BP Prox CCA 66.4/10.7 cm/sec. CCA, No flow. Mid CCA 92.5/13.9 cm/sec. ICA, No flow. Dist CCA 109.7/12.6 cm/sec. ECA prox, No flow. Prox ICA 83.9/15.1 cm/sec. ECA mid, 43.2/11.3 cm/sec. Mid ICA 104.7/22.5 cm/sec. Lt. Vert. 27.3/7.3 cm/sec. Dist ICA 108.3/22.5 cm/sec. Rt. ICA/CCA = 1.17. Prox ECA 252.2/8.6 cm/sec. Rt. Vert. 54.2/13.5 cm/sec. Right Extracranial There is heterogeneous, irregular atherosclerotic plaque noted in the right common carotid artery. There is heterogeneous, irregular atherosclerotic plaque noted in the right internal carotid artery. There is heterogeneous, irregular atherosclerotic plaque noted in the right external carotid artery. Antegrade flow is noted in the right vertebral artery. Left Extracranial Known CCA, ICA and ECA occlusion. There is heterogeneous, irregular atherosclerotic plaque noted in the left common carotid artery. There is heterogeneous, irregular atherosclerotic plaque noted in the left internal carotid artery. There is heterogeneous, irregular atherosclerotic plaque noted in the left external carotid artery. Antegrade flow is noted in the left vertebral artery. Procedure Carotid Duplex [id number]. This is a Carotid Duplex examination using B-mode, color flow and specral Doppler. Exam performed in department. VL/Carotid Duplex Ultrasound Interpretation Summary Irregular calcific plaque with shadowing at the proximal right internal carotid artery with less than 50% stenosis Greater than 50% stenosis right external carotid artery Extensive plaque within the left common carotid and internal carotid external c arotid artery with no flow in those vessels proximally. There is slight flow in the mid left external carotid. 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
== END | disposition home or self-care (01) ==
LOC: CVS 08:11
PROVIDERS: PCP Family Medicine; Referring Provider Family Medicine; Visit Provider Family Medicine
DX: R09.89 Other specified symptoms and signs involving the circulatory and respiratory systems (principal)
CPT/HCPCS: 93880

== ENCOUNTER → 2023-06-07 | Outpatient (CLI) | payer MEDICARE, OTHER, SELFPAY ==
[2023-06-07 07:51] LABS: Absolute Lymphocyte Count 1.51 X10^3/uL (0.83-4.51); Absolute Neutrophil Count 2.9 X10^3/uL (2.0-7.7); Basophil# 0.03 X10^3/uL; Basophil% 0.6 % (0-1); Eosinophil# 0.12 X10^3/uL; Eosinophils% 2.4 % (0-5); Hematocrit 54.2 % (40-54); Hemoglobin 16.9 g/dL (13.0-16.5); Lymphocyte # 1.51 X10^3/ul (0.83-4.51); Lymphocyte % 30.3 % (19-41); Mean Corp Hgb Conc 31.2 g/dL (32-36); Mean Corpuscular Hgb 31.6 pg (27.0-32.0); Mean Corpuscular Volume 101.5 fL (80-94); Monocyte# 0.39 X10^3/uL; Monocyte% 7.8 % (0-10); NRBC Flagged by Analyzer 0 % (0-5); Neutrophil # 2.93 X10^3/uL (2.7-7.7); Neutrophil % 58.7 % (47-70); Platelet Count 135 K/mm3 (150-450); RBC Distribution Width CV 13.7 % (11.6-14.6); RBC Distribution Width SD 51.5 fl (35.1-43.9); Red Blood Count 5.34 M/mm3 (4.6-6.2)
[2023-06-07 08:44] LABS: AST(SGOT) 18 U/L (15-37); Alanine Aminotransfer ALT/SGPT 23 U/L (16-61); Albumin, Serum 3.6 g/dL (3.2-5.0); Alkaline Phosphatase 82 U/L (45-117); Anion Gap 4 (5-15); BUN 11 mg/dL (7-18); BUN/Creat Ratio 11.4 RATIO (10-20); Calcium,Total 9.2 mg/dL (8.5-10.1); Chloride 108 mmol/L (98-107); Cholesterol 136 mg/dL (200); Creatinine, Serum 0.97 mg/dL (0.70-1.30); EST Glomerular Filtration Rate 82 mL/min (>60); Est Glom Filt Rate - Afr Amer 99 mL/min (>60); Globulin 3.5 g/dL (2.2-4.2); Glucose 134 mg/dL (74-106); High Density Lipoprotein 44 mg/dL; Potassium 4.4 mmol/L (3.5-5.1); Protein, Total 7.1 g/dL (6.4-8.2); Sodium Level 142 mmol/L (136-145); Triglycerides 108 mg/dL; Very Low Density Lipoprotein 22 mg/dL (5-40)
== END | disposition home or self-care (01) ==
LOC: LAB 07:09
PROVIDERS: PCP Family Medicine; Referring Provider Family Medicine; Visit Provider Family Medicine
DX: E11.9 Type 2 diabetes mellitus without complications (principal); I10 Essential (primary) hypertension; E78.5 Hyperlipidemia, unspecified
CPT/HCPCS: 36415; 80053; 80061; 83036; 85025

== ENCOUNTER → 2023-10-01 | Outpatient (CLI) | payer MEDICARE, OTHER, SELFPAY ==
--- OUTSIDE RECORDS SUMMARY | 2023-10-01 05:59 | XMS RPT_ITS | CCD ---
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 Work Phone: Unclassified (1 source) BEE STINGS [Other] Propensity to adverse reactions 09-06-2005 [facility] Work Phone: Medications Completed/Discontinued Medications Medication Drug Class(es) Dates Sig (Normalized) Sig (Original) aspirin 81 mg delayed release oral tablet (1 source) Platelet Aggregation Inhibitor, Nonsteroidal Anti-inflammatory Drug Start: 12-16-2009 End: 04-03-2012 aspirin(ADULT LOW DOSE ASPIRIN 81 MG TAB, DELAYED RELEASE) Indications: Type II or unspecified type diabetes mellitus without mention of complication, not stated as uncontrolled Take one(1) tablet daily. 0 12/16/2009 04/03/2012 Discontinued (Erroneous entry) Problems Active Problems Problem Classification Problem Date Documented Da te Episodic/Chronic Diabetes mellitus without complication (1 source) Diabetes mellitus; Translations: [Type 2 diabetes mellitus without complications] 09-06-2005 Chronic Disorders of lipid metabolism (1 source) Hyperlipidemia; Translations: [Hyperlipidemia, unspecified] 09-06-2005 Chronic Essential hypertension (1 source) Hypertensive disorder; Translations: [Essential (primary) hypertension] 12-12-2010 Chronic Occlusion or stenosis of precerebral arteries (1 source) Carotid artery occlusion; Translations: [Occlusion and stenosis of unspecified carotid artery] Onset: 04-03-2012 04-03-2012 Chronic Substance-related disorders (1 source) Tobacco user; Translations: [Nicotine dependence, unspecified, uncomplicated] 12-16-2009 Chronic Transient cerebral ischemia (1 source) Transient cerebral ischemia; Translations: [Transient cerebral ischemic attack, unspecified] Onset: 04-03-2012 04-03-2012 Chronic Past or Other Problems Problem Classification Problem Date Documented Da te Episodic/Chronic Allergic reactions (1 source) Allergy to bee venom; Translations: [Allergy to insects and arachnids] Onset: 12-16-2009 12-16-2009 Episodic Calculus of urinary tract (1 source) History of calculus of kidney; Translations: [Personal history of urinary calculi] Onset: 12-16-2009 12-16-2009 Episodic Other screening for suspected conditions (not mental disorders or infectious disease) (1 source) Patient encounter status; Translations: [Encounter for screening for malignant neoplasm of intestinal tract, unspecified] Onset: 08-28-2011 08-28-2011 Episodic Results Test Name Value Interpretation Reference Range Facil ity Encounters Encounter Date Encounter Type Care Provider Facility Start: 08-27-2021 End: 08-27-2021 ambulatory UNKNOWN PROVIDER Facility:[facility] Start: 08-27-2021 End: 09-03-2021 Evaluation and management of inpatient ADNAN SAFDAR Facility:[facility] Start: 08-28-2011 End: 08-28-2011 Telephone encounter Cleveland Berman Work Phone: General Surgery Procedures Date Procedure Procedure Detail Performing Clinician Start: 08-27-2021 Antibody screen JES S AFDAR Plan of Treatment Date Care Activity Detail Author Start: 10-11-2021 Screening for malign ant neoplasm of colon [facility] Start: 03-22-2021 Influenza vaccination INFLUENZA (Sea son Ended) [facility] Start: 2018 ADVANCE DIRECTIVE DISCUSSION ADVANCE DIRECTIVE DISCUSSION [facility] Start: 2018 PNEUMOVAX AGE 65 AND OVER WITH 5YR LOOKBACK (#1) PNEUMOVAX AGE 65 AND OVER WITH 5YR LOOKBACK (#1) [facility] Start: 11-17-2016 Hepatitis C antibody , confirmatory test DILATED RETINAL EXAM [facility] Start: 03-20-2016 PROSTATE CANCER SCRE ENING DISCUSSION PROSTATE CANCER SCREENING DISCUSSION [facility] Start: 05-25-2012 Hepatitis B surface antibody level LDL CHOLESTEROL [facility] Start: 11-23-2011 Hemoglobin A1c/Hemoglobin.total in Blood HBA1C [facility] Start: 08-09-2011 3 comp foot exam completed DIABETIC FOOT EXAM [facility] Start: 12-10-2010 Hepatitis B screening URINE AL BUMIN:CREATININE RATIO [facility] Start: 2003 Screening for malign ant neoplasm of colon [facility] Start: 2003 SHINGRIX VACCINE (1 of 2) FOWLER GRIX VACCINE (1 of 2) [facility] Start: 11-18-1982 Urine microalbumin profile DTAP,TDAP ,TD (3 - Tdap) [facility] Start: 1971 HEPATITIS C SCREENING HEPATITIS C SC REENING [facility] Start: 1965 [facility] DE[facility] SCREENING [facility] Start: 1953 ABDOMINAL AORTIC ANE URYSM SCREENING ABDOMINAL AORTIC ANEURYSM SCREENING [facility] Immunizations Immunization Date Immunization Notes Care Provider Fa peter 04-05-2011 influenza virus vacc ine, unspecified formulation [employer] Work Phone: [facility] 03-22-2011 influenza virus vacc ine, unspecified formulation [employer] Work Phone: [facility] 04-21-2010 influenza virus vacc ine, unspecified formulation [employer] Work Phone: [facility] 06-13-2009 pneumococcal polysaccharide vaccine, 23 valent [employer] Work Phone: [facility] 04-22-2009 influenza virus vacc ine, unspecified formulation [employer] Work Phone: [facility] 11-18-1972 diphtheria and tetan us toxoids, adsorbed for pediatric use [employer] Work Phone: [facility] 11-10-1965 diphtheria, tetanus toxoids and pertussis vaccine [place] BONESUPPORTalexi Work Phone: [facility] Payers Date Payer Category Payer Medicare [id number] 2021 Unknown [id number] 2007 Unknown [employer]HEL[employer] PPO [id number] 2007-2012 PPO [id number] 1955 Unknown [id number] 1955 Unknown [id number] Social History Date Type Detail Facility Start: 08-28-2011 Tobacco smoking stat us COIS Former smoker [facility] End: 07-08-2009 History of tobacco use Current smoker [facility] End: 07-08-2009 History of tobacco use Cigarette Smoker [facility] Start: 08-28-2011 Cigarettes smoked cu rrent (pack per day) - Reported [facility] Start: 08-28-2011 Alcohol intake Current drinke r of alcohol (finding) [facility] Start: 1955 Sex Assigned At Not on file C [facility] Medical Equipment Procedure Code Equipment Code Equipment Original Text Equipment Identifier Dates Use as instructe dTest blood sugar once times per day. Dx: 250.00. Insulin Dep: no Start: 07-24-2011 Note 08-28-2011 Telephone Encounter - Cee Shields Rn - 08/28/2011 3:52 PM EST Note Date & Type Note Facility 08-28-2011 Miscellaneous Notes Pt saw Dr Berman today. Dr Berman is planning on doing a colonoscopy and pt will have to be on clear liquids for 2 days. Pt is a diabetic, and is on 2 oral diabetic meds and insulin. Dr Berman would like Dr Kunz to advise on how pt should be taking these meds during the 2 days of clear liquids. Called Dr Kunz's office and spoke with Lucinda. Informed her of above. She will notify Dr Kunz of above and call back with his recommendations. Colonoscopy has not been scheduled yet. documented in this encounter [facility] Summary Purpose Family History No Family History Records FoundNo Family History Records Found Advance Directives No Advanced Directives Records FoundNo Advanced Directives Records Found Additional Source Comments Source Comments (unrecognize d section and content) In the event this informatio n is protected by the Federal Confidentiality of Alcohol and Drug Abuse Patient Records regulations: The Federal rules restrict any use of the information to criminally investigate or prosecute any alcohol or drug abuse patient.[facility] Reason for Visit (unrecogniz ed section and content) (unrecognized sect ion and content) No Status Records FoundNo Status Records Found INFORMATION SOURCE (unrecogn ized section and content) DATE CREATED AUTHOR AUTHOR'S ORGANIZ ATION 12/27/2021 [facility] FOR RECORDS PERTAINING TO PATIENTS WHO ARE OR HAVE BEEN ENROLLED IN A CHEMICAL DEPENDENCY/SUBSTANCEABUSE PROGRAM, SOME INFORMATION MAY BE OMITTED. This clinical summary was aggregated from multiple sources. Caution should be exercised in using it in the provision of clinical care. This summary normalizes information from multiple sources, and as a consequence, information in this document may materially change the coding, format and clinical context of patient data. In addition, data may be omitted in some cases. CLINICAL DECISIONS SHOULD BE BASED ON THE PRIMARY CLINICAL RECORDS. [employer] provides no warranty or guarantee of the accuracy or completeness of information in this document.
[2023-10-01 07:44] LABS: Absolute Lymphocyte Count 1.65 X10^3/uL (0.83-4.51); Basophil# 0.03 X10^3/uL; Basophil% 0.5 % (0-1); Eosinophil# 0.15 X10^3/uL; Eosinophils% 2.4 % (0-5); Hematocrit 53.7 % (40-54); Hemoglobin 16.6 g/dL (13.0-16.5); Lymphocyte # 1.65 X10^3/ul (0.83-4.51); Lymphocyte % 26.5 % (19-41); Mean Corp Hgb Conc 30.9 g/dL (32-36); Mean Corpuscular Hgb 31.1 pg (27.0-32.0); Mean Corpuscular Volume 100.8 fL (80-94); Mean Platelet Vol. 11.7 fl (6.2-12.0); Monocyte# 0.43 X10^3/uL; Monocyte% 6.9 % (0-10); NRBC Flagged by Analyzer 0 % (0-5); Neutrophil # 3.95 X10^3/uL (2.7-7.7); Neutrophil % 63.4 % (47-70); Platelet Count 151 K/mm3 (150-450); RBC Distribution Width CV 13.5 % (11.6-14.6); RBC Distribution Width SD 50.6 fl (35.1-43.9); Red Blood Count 5.33 M/mm3 (4.6-6.2); White Blood Count 6.2 K/mm3 (4.4-11.0)
[2023-10-01 08:11] LABS: AST(SGOT) 19 U/L (15-37); Alanine Aminotransfer ALT/SGPT 26 U/L (16-61); Albumin, Serum 3.6 g/dL (3.2-5.0); Alkaline Phosphatase 100 U/L (45-117); Anion Gap 3 (5-15); BUN 11 mg/dL (7-18); Calcium,Total 9.6 mg/dL (8.5-10.1); Chloride 107 mmol/L (98-107); Creatinine, Serum 0.92 mg/dL (0.70-1.30); EST Glomerular Filtration Rate 87 mL/min (>60); Est Glom Filt Rate - Afr Amer 105 mL/min (>60); Globulin 3.7 g/dL (2.2-4.2); Glucose 138 mg/dL (74-106); Potassium 4.4 mmol/L (3.5-5.1); Protein, Total 7.3 g/dL (6.4-8.2); Sodium Level 141 mmol/L (136-145)
[2023-10-01 08:14] LABS: Hemoglobin A1c 6.9 % (3.8-5.6)
[2023-10-01 10:05] LABS: Microalbumin,Random Urine 53.5 mg/L (NO RANGE EST.); Microalbumin:Creatinine Ratio 42.5 mg/g CRE (<30 mg/g CRE)
== END | disposition home or self-care (01) ==
LOC: LAB 05:56
PROVIDERS: PCP Family Medicine; Referring Provider Family Medicine; Visit Provider Family Medicine
DX: E11.9 Type 2 diabetes mellitus without complications (principal); J44.9 Chronic obstructive pulmonary disease, unspecified
CPT/HCPCS: 36415; 80053; 82043; 82570; 83036; 85025

== ENCOUNTER → 2024-03-16 | Outpatient (CLI) | payer MEDICARE, OTHER, SELFPAY ==
[2024-03-16 06:38] LABS: Absolute Lymphocyte Count 1.58 X10^3/uL (0.83-4.51); Absolute Neutrophil Count 2.5 X10^3/uL (2.0-7.7); Basophil# 0.02 X10^3/uL; Basophil% 0.4 % (0-1); Eosinophil# 0.17 X10^3/uL; Eosinophils% 3.6 % (0-5); Hematocrit 50.5 % (40-54); Lymphocyte # 1.58 X10^3/ul (0.83-4.51); Lymphocyte % 33.8 % (19-41); Mean Corp Hgb Conc 31.7 g/dL (32-36); Mean Corpuscular Hgb 31.8 pg (27.0-32.0); Mean Corpuscular Volume 100.4 fL (80-94); Monocyte# 0.37 X10^3/uL; Monocyte% 7.9 % (0-10); NRBC Flagged by Analyzer 0 % (0-5); Neutrophil # 2.52 X10^3/uL (2.7-7.7); Neutrophil % 54.1 % (47-70); Platelet Count 124 K/mm3 (150-450); RBC Distribution Width CV 13.3 % (11.6-14.6); RBC Distribution Width SD 49.4 fl (35.1-43.9); Red Blood Count 5.03 M/mm3 (4.6-6.2); White Blood Count 4.7 K/mm3 (4.4-11.0)
[2024-03-16 07:28] LABS: ALB/GLOB Ratio 1.1 RATIO (0.9-2.4); AST(SGOT) 14 U/L (15-37); Alanine Aminotransfer ALT/SGPT 20 U/L (16-61); Albumin, Serum 3.4 g/dL (3.2-5.0); Alkaline Phosphatase 83 U/L (45-117); Anion Gap 5 (5-15); BUN 13 mg/dL (7-18); BUN/Creat Ratio 14.5 RATIO (10-20); Calcium,Total 8.8 mg/dL (8.5-10.1); Chloride 107 mmol/L (98-107); Cholesterol 115 mg/dL (200); EST Glomerular Filtration Rate 89 mL/min (>60); Est Glom Filt Rate - Afr Amer 108 mL/min (>60); Globulin 3.2 g/dL (2.2-4.2); Glucose 129 mg/dL (74-106); High Density Lipoprotein 45 mg/dL; PSA,Total - Annual Screen 1.92 ng/mL (0.00-4.00); Potassium 4.1 mmol/L (3.5-5.1); Protein, Total 6.6 g/dL (6.4-8.2); Sodium Level 141 mmol/L (136-145); Triglycerides 86 mg/dL; Very Low Density Lipoprotein 17 mg/dL (5-40)
[2024-03-16 11:54] LABS: Microalbumin,Random Urine 36.8 mg/L (NO RANGE EST.)
== END | disposition home or self-care (01) ==
PROVIDERS: PCP Family Medicine; Referring Provider Family Medicine; Visit Provider Family Medicine
DX: E11.9 Type 2 diabetes mellitus without complications (principal); E78.5 Hyperlipidemia, unspecified; Z12.5 Encounter for screening for malignant neoplasm of prostate
CPT/HCPCS: 36415; 80053; 80061; 82043; 82570; 84153; 85025; G0103

== ENCOUNTER → 2024-05-12 | Outpatient (CLI) | payer MEDICARE, OTHER, SELFPAY ==
--- NOTE | 2024-05-12 08:36 | CDU_ITS ---
Reason For Study: OCCLUSION AND STENOSIS OF CAROTID ARTERIES Rt. Velocities/BP Lt. Velocities/BP Prox CCA 70.5/9.1 cm/sec. KNOWN CCA OCCLUSION. Mid CCA 56.7/8.4 cm/sec. KNOWN ICA OCCLUSION. Dist CCA 79.8/14.9 cm/sec. KNOWN PROX ECA OCCLUSION. Prox ICA 89.5/22.0 cm/sec. Prox ECA 84.2/6.9 cm/sec. Mid ICA 111.2/18.1 cm/sec. Lt. Vert. 44.9/9.3 cm/sec. Dist ICA 114.9/18.1 cm/sec. Rt. ICA/CCA = 114.9/56.7=2.0. Prox ECA 229.6/9.3 cm/sec. Rt. Vert. 78.4/18.1 cm/sec. Right Extracranial There is heterogeneous, irregular atherosclerotic plaque noted in the right common carotid artery. There is heterogeneous, irregular atherosclerotic plaque noted in the right internal carotid artery. There is heterogeneous, irregular atherosclerotic plaque noted in the right external carotid artery. Antegrade flow is noted in the right vertebral artery. Left Extracranial The left common carotid artery is occluded. The left internal carotid artery is occluded. There is heterogeneous, irregular atherosclerotic plaque noted in the left external carotid artery. Antegrade flow is noted in the left vertebral artery. Procedure Carotid Duplex [id number]. This is a Carotid Duplex examination using B-mode, color flow and specral Doppler. The study was technically difficult. Exam performed in department. VL/Carotid Duplex Ultrasound Interpretation Summary Mild (<50%) stenosis right extracranial internal carotid. 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 Patent and antegrade vertebrals bilaterally. Ordering Physician: Toney Nicole Referring Physician: Toney Nicole Performed By: Carin Moralez, MARINA, RVT
== END | disposition home or self-care (01) ==
PROVIDERS: PCP Family Medicine; Referring Provider Family Medicine; Visit Provider Family Medicine
DX: I65.23 Occlusion and stenosis of bilateral carotid arteries (principal)
CPT/HCPCS: 93880

== ENCOUNTER → 2024-06-30 | Outpatient (CLI) | payer MEDICARE, OTHER, SELFPAY ==
[2024-06-30 07:29] LABS: ALB/GLOB Ratio 0.8 RATIO (0.9-2.4); AST(SGOT) 12 U/L (15-37); Alanine Aminotransfer ALT/SGPT 16 U/L (16-61); Albumin, Serum 3.3 g/dL (3.2-5.0); Alkaline Phosphatase 96 U/L (45-117); Anion Gap 5 (5-15); BUN 14 mg/dL (7-18); BUN/Creat Ratio 15.3 RATIO (10-20); Calcium,Total 9.8 mg/dL (8.5-10.1); Chloride 106 mmol/L (98-107); Cholesterol 132 mg/dL (200); Creatinine, Serum 0.92 mg/dL (0.70-1.30); EST Glomerular Filtration Rate 86 mL/min (>60); Est Glom Filt Rate - Afr Amer 105 mL/min (>60); Globulin 3.9 g/dL (2.2-4.2); Glucose 171 mg/dL (74-106); High Density Lipoprotein 40 mg/dL; Potassium 4.5 mmol/L (3.5-5.1); Protein, Total 7.2 g/dL (6.4-8.2); Sodium Level 140 mmol/L (136-145); Triglycerides 110 mg/dL; Very Low Density Lipoprotein 22 mg/dL (5-40)
[2024-06-30 09:08] LABS: Hemoglobin A1c 7.3 % (3.8-5.6)
[2024-06-30 10:38] LABS: Microalbumin,Random Urine 25.1 mg/L (NO RANGE EST.); Microalbumin:Creatinine Ratio 24.6 mg/g CRE (<30 mg/g CRE)
== END | disposition home or self-care (01) ==
PROVIDERS: PCP Family Medicine; Referring Provider Family Medicine; Visit Provider Family Medicine
DX: E11.9 Type 2 diabetes mellitus without complications (principal); Z12.5 Encounter for screening for malignant neoplasm of prostate
CPT/HCPCS: 36415; 80053; 80061; 82043; 82570; 83036

== ENCOUNTER → 2024-09-28 | Outpatient (CLI) | payer MEDICARE, OTHER, SELFPAY ==
[2024-09-28 16:20] LABS: Microalbumin,Random Urine 37.3 mg/L (NO RANGE EST.); Microalbumin:Creatinine Ratio 669.7 mg/g CRE
== END | disposition home or self-care (01) ==
LOC: LABSPEC 12:12
PROVIDERS: PCP Family Medicine; Referring Provider Family Medicine; Visit Provider Family Medicine
DX: E11.9 Type 2 diabetes mellitus without complications (principal)
CPT/HCPCS: 82043; 82570

== ENCOUNTER → 2024-12-29 | Outpatient (CLI) | payer MEDICARE, OTHER, SELFPAY ==
[2024-12-29 12:45] LABS: ALB/GLOB Ratio 1.2 RATIO (0.9-2.4); AST(SGOT) 22 U/L (<=37); Alanine Aminotransfer ALT/SGPT 15 U/L (<=46); Alkaline Phosphatase 108 U/L (40-129); Anion Gap 12 (5-15); BUN 9 mg/dL (4-19); Calcium,Total 9.8 mg/dL (7.6-11.0); Chloride 104 mmol/L (98-108); Creatinine, Serum 0.78 mg/dL (0.70-1.20); EST Glomerular Filtration Rate 95 (>60); Globulin 3.5 g/dL (2.2-4.2); Glucose 67 mg/dL (70-99); Potassium 4.2 mmol/L (3.3-5.1); Protein, Total 7.5 g/dL (5.9-8.4); Sodium Level 142 mmol/L (133-145); Total Bilirubin 0.33 mg/dL (0.00-1.30)
[2024-12-29 12:54] LABS: Microalbumin,Random Urine 82.3 mg/L (NO RANGE EST.)
== END | disposition home or self-care (01) ==
LOC: MFPLAB 09:52
PROVIDERS: PCP Family Medicine; Referring Provider Family Medicine; Visit Provider Family Medicine
DX: E11.9 Type 2 diabetes mellitus without complications (principal)
CPT/HCPCS: 36415; 80053; 82043; 82570

== ENCOUNTER → 2025-04-29 | Outpatient (CLI) | payer MEDICARE, OTHER, SELFPAY ==
[2025-04-29 13:03] LABS: PSA,Total - Annual Screen 2.36 ng/mL (0.02-4.00)
== END | disposition home or self-care (01) ==
LOC: MFPLAB 09:48
PROVIDERS: PCP Family Medicine
DX: Z12.5 Encounter for screening for malignant neoplasm of prostate (principal)
CPT/HCPCS: 36415; 84153; G0103